=== PATIENT | male | born 1955 | race Caucasian/White ===

== ENCOUNTER 2016-03-13 08:42 | Outpatient (RCR) | payer MEDICARE, OTHER ==
--- OUTSIDE RECORDS SUMMARY | 2016-01-16 09:06 | XMS REPORT | Continuity of Care Document ---
Author Author [facility] Organization [facility] Address Unknown Phone Unavailable Care Team Providers Care Equipment Operat0R Name Role Phone Johana Nathan PCP [phone] Source Comments Some departments are not documenting in the electronic medical record. If you do not see the information that you expected, contact Release of Information in the Health Information Management department at [phone] for further assistance in locating additional records.[facility] Active Allergies and Adverse Reactions No Known Allergies Current Medications Prescription Sig. Disp. Refills Start End Date Status Date rivaroxaban (XARELTO) 20 Take 20 mg by mouth at Active mg tab tablet bedtime daily. oxyCODone (ROXICODONE) 5 Take 1-2 Tabs by mouth 90 Tab 0 05/06/19 Active mg tablet every 4 hours as needed 14 for Pain Earliest Fill Date: 05/05/13 tamsulosin (FLOMAX) 0.4 Take 1 Cap by mouth daily 30 Cap 5 05/06/19 Active mg capsule after breakfast. 14 polyethylene glycol 3350 Take 17 g by mouth daily. 3 Bottle 05/06/19 Active (GLYCOLAX; MIRALAX) 17 14 gram/dose powder senna/docusate Take 2 Tabs by mouth 05/06/19 Active (SENOKOT-S) 8.6/50 mg twice daily. 14 tablet Active Problems Problem Noted Date Urinary retention 05/03/2013 Overview: 05/01/13: Unable to void after removing calvo. Start Flomax. Consult Urology. Calvo replaced with plan to keep for 3-5 days and then repeat voiding trial. BPH (benign prostatic hyperplasia) 05/01/2013 Liver tumor 04/29/2013 S/P exploratory laparotomy 04/29/2013 Overview: 04/29/13: Exploratory laparotomy, intra-operative ultrasound, open cholecystectomy, right hepatectomy. Portal lymphadenectomy. Findings: The two lesions seen preoperatively were clearly felt. On ultrasound, I thought I could see small lesions within the right lobe so I thought it best to remove the entire lobe. Pulmonary embolus (HCC) 04/16/2013 Metastatic adenocarcinoma to liver (HCC) 02/26/2013 Overview: Mr. Zhao is a 58 year old man who developed left sided pain for several months and subsequently developed blood in his stools. A barium enema was done in [place], where he was working at the time and demonstrated an apple core lesion in the sigmoid colon. A CT of the abdomen and pelvis was done on 07/04/11 and metastatic lesions were noted.He underwent a laparoscopic sigmoidectomy on 07/12/11; the cancer was a well-differentiated to moderately differentiated adenocarcinoma, that went through the muscularis propria and into the pericolorectal tissues and was metastatic to 2 of 17 regional lymph nodes. There was no lymphatic nor perineural invasion. He had a colonoscopy after the resection in June, that showed that the proximal colon was free of other lesions. He had a PET scan on the August, that did not show any evidence of hypermetabolic lesions. He was given post-operative Folfox for one cycle, but due to his job, the treatment was changed to capecitabine and oxaliplatin for eleven cycles. He was felt to be free of cancer last spring. He did well until December,, when he developed left forearm swelling, pleuritic chest pain, and dyspnea. He went to the ER and was found to have bilateral pulmonary emboli on CTs done 12/27 and 12/28 as well as two liver lesions, consistent with metastatic colon cancer to the liver. One lesion was on the right lateral side of the gallbladder and the other on the right lateral lobe superficially. He was also noted by ultrasound to have left subclavian vein thrombosis. He has been started on Folfiri and has had three cycles. He was referred to me for consideration of surgical therapy. I saw him first on the February, and, on review of the CT scans he had done, felt that he had two lesions in the right lobe, which would be easily resected with a right lobectomy. I discussed with him the rationale for sandwich chemotherapy and the possible improved assisted survival with that treatment versus immediate surgery. I do feel that he would benefit from a PET scan done here, which we arranged to make certain there are no other lesions. Mr. Zhao returned on the 16 of April to be set up for surgery. He had a total of 6 cycles of chemotherapy with Folfiri and two with Avastin. His last chemotherapy treatment with Avastin was on 03/02/13; he then had 2 more cycles of Folfiiri, the last one was on the 31 of March. His appetite is good and he has gained about 7 kilograms since his last visit. On 04/29/13, he underwent an exploratory laparotomy, intra-operative ultrasound, open cholecystectomy, right hepatectomy, and portal lymphadenectomy. On ultrasound, I felt that there were subtle changes in his liver tissue, consistent with tiny metastatic lesions and so proceeded with a right hepatectomy. Pathologically, the liver contained two foci of metastatic adenocarcinoma compatible with colonic origin and negative portal lymph nodes () and the gallbladder showed mild chronic cholecystitis. He was discharged on the 7th post-operative day. The only post-operative issue was urinary retention for which he was started on Flowmax and the calvo was successfully removed on the day of discharge. L ast Assessment & Plan: He returned on the 14 of May. After discharge, he had a fair amount of pain but that resolved with time; he stopped taking oral pain medications 4 days ago. He has taste and is eating well, multiple small meals. He is sleeping poorly, due to the surgical drain which remains in place. The output from the drain has fallen to about one mL daily and the fluid has an odor. He is having a daily bowel movement. He had constipation for three days but, when he started taking Miralax, he started having bowel movements. Cancer of sigmoid colon (HCC) 07/11/2012 Overview: Mr. Zhao is a 58 year old man who developed left sided pain for several months and subsequently developed blood in his stools. A barium enema was done in [place], where he was working at the time, and demonstrated an apple core lesion in the sigmoid colon. He underwent a laparoscopic sigmoidectomy on 07/12/11; the cancer was a well-differentiated to moderately differentiated adenocarcinoma, that went through the muscularis propria and into the pericolorectal tissues and was metastatic to 2 of 17 regional lymph nodes. There was no lymphatic nor perineural invasion. He had a colonoscopy after the resection in June, that showed that the proximal colon was free of other lesions. He was given post-operative Folfox for one cycle, but due to his job, the treatment was changed to capecitabine and oxaliplatin for eleven cycles. He was felt to be free of cancer last spring. Social History Tobacco Use Types Packs/Day Years Used Date Never Smoker Smokeless Tobacco: Chew Current User Comments: chewed for 35 years Alcohol Use Drinks/Week oz/Week Comments No Last Filed Vital Signs Vital Sign Reading Time Taken Blood Pressure 115/79 05/14/2013 8:59 AM COFFIN MAKER Pulse 89 05/14/2013 8:59 AM COFFIN MAKER Temperature 36.9 C (98.4 F) 05/14/2013 8:59 AM COFFIN MAKER Respiratory Rate - - Height 1.791 m (5' 10.5") 05/14/2013 8:59 AM COFFIN MAKER Weight 91.717 kg (202 lb 3.2 oz) 05/14/2013 8:59 AM COFFIN MAKER Body Mass Index 28.59 05/14/2013 8:59 AM COFFIN MAKER Oxygen Saturation 100% 05/14/2013 8:59 AM COFFIN MAKER Plan of Care Health Maintenance Due Date Last Done Comments Physical (Comprehensive) 1962 Exam Pertussis Vaccine 1966 Tetanus Vaccine 02/21/1972 Colorectal Cancer 2005 Screening Shingles Vaccine 2015 Influenza Vaccine 11/09/2015 Results from Last 3 Months Not on file
[2016-01-16 09:45] LABS: BASOPHILS % (AUTO) 0 % (0-10); EOSINOPHILS # (AUTO) 0.2 10^3/uL (0.0-0.3); EOSINOPHILS % (AUTO) 4 % (0-10); LYMPHOCYTES # (AUTO) 1.1 X 10^3 (1.0-4.0); LYMPHOCYTES % (AUTO) 25 % (12-44); MEAN CORPUSCULAR HEMOGLOBIN 30 PG (25-34); MEAN CORPUSCULAR HGB CONC 34 G/DL (32-36); MEAN CORPUSCULAR VOLUME 89 FL (80-99); MEAN PLATELET VOLUME 10.8 FL (7.4-10.4); MONOCYTES # (AUTO) 0.4 X 10^3 (0.0-1.0); MONOCYTES % (AUTO) 9 % (0-12); NEUTROPHILS # (AUTO) 2.7 X 10^3 (1.8-7.8); NEUTROPHILS % (AUTO) 62 % (42-75); PLATELET COUNT 187 10^3/uL (130-400); RED BLOOD COUNT 4.62 10^6/uL (4.35-5.85); RED CELL DISTRIBUTION WIDTH 13.8 % (10.0-14.5); WHITE BLOOD COUNT 4.4 10^3/uL (4.3-11.0)
[2016-01-16 10:03] LABS: INR 2.1 (0.8-1.4); PROTHROMBIN TIME PATIENT 23.2 SEC (12.2-14.7)
[2016-01-16 10:14] LABS: ALANINE AMINOTRANSFERASE 20 U/L (0-55); ALBUMIN 4.4 G/DL (3.2-4.5); ANION GAP 10 MMOL/L (5-14); ASPARTATE AMINO TRANSFERASE 19 U/L (5-34); BILIRUBIN,TOTAL 0.6 MG/DL (0.1-1.0); BLOOD UREA NITROGEN 14 MG/DL (7-18); BUN/CREATININE RATIO 14; CALCIUM 8.9 MG/DL (8.5-10.1); CARBON DIOXIDE 24 MMOL/L (21-32); CHLORIDE 108 MMOL/L (98-107); CREATININE SERUM 0.99 MG/DL (0.60-1.30); GFR ESTIMATED > 60; GLUCOSE 111 MG/DL (70-105); POTASSIUM 4.1 MMOL/L (3.6-5.0); SODIUM 142 MMOL/L (135-145); TOTAL PROTEIN 6.9 G/DL (6.4-8.2)
[~2016-03-13 08:42] MED LIST: AC325T PO; ACHD5005 PO; CLN150C PO; DOCU-161 PO; ENXP60I.6 SC; HYDR-3454 PO; HYDR2TAB6 PO; LORA1TAB PO; NCT21TD TOP; PNT40TEC PO; POLY17PO23 PO; SENN-75 PO; TRM50T PO; WARF10TA44 PO; WARF7.5T49 PO; WHEA1TAB PO
[2016-03-13 08:57] LABS: BASOPHILS % (AUTO) 0 % (0-10); EOSINOPHILS # (AUTO) 0.2 10^3/uL (0.0-0.3); EOSINOPHILS % (AUTO) 4 % (0-10); LYMPHOCYTES % (AUTO) 24 % (12-44); MEAN CORPUSCULAR HEMOGLOBIN 30 PG (25-34); MEAN CORPUSCULAR HGB CONC 33 G/DL (32-36); MEAN CORPUSCULAR VOLUME 89 FL (80-99); MEAN PLATELET VOLUME 11.4 FL (7.4-10.4); MONOCYTES # (AUTO) 0.5 X 10^3 (0.0-1.0); MONOCYTES % (AUTO) 11 % (0-12); NEUTROPHILS # (AUTO) 2.5 X 10^3 (1.8-7.8); NEUTROPHILS % (AUTO) 61 % (42-75); PLATELET COUNT 203 10^3/uL (130-400); RED BLOOD COUNT 4.93 10^6/uL (4.35-5.85); WHITE BLOOD COUNT 4.1 10^3/uL (4.3-11.0)
[2016-03-13 09:29] LABS: INR 2.1 (0.8-1.4)
[2016-03-13 09:42] LABS: ALANINE AMINOTRANSFERASE 15 U/L (0-55); ALBUMIN 4.5 G/DL (3.2-4.5); ANION GAP 9 MMOL/L (5-14); ASPARTATE AMINO TRANSFERASE 21 U/L (5-34); BILIRUBIN,TOTAL 0.5 MG/DL (0.1-1.0); BLOOD UREA NITROGEN 13 MG/DL (7-18); BUN/CREATININE RATIO 12; CALCIUM 9.2 MG/DL (8.5-10.1); CARBON DIOXIDE 25 MMOL/L (21-32); CHLORIDE 106 MMOL/L (98-107); CREATININE SERUM 1.12 MG/DL (0.60-1.30); GFR ESTIMATED > 60; GLUCOSE 113 MG/DL (70-105); POTASSIUM 4.2 MMOL/L (3.6-5.0); SODIUM 140 MMOL/L (135-145); TOTAL PROTEIN 7.3 G/DL (6.4-8.2)
== END 2016-04-15 | disposition home or self-care (01) ==
LOC: ONC 08:42
PROVIDERS: ATTEND Internal Medicine Hematology & Oncology
DX: C18.7 Malignant neoplasm of sigmoid colon (principal); C78.7 Secondary malignant neoplasm of liver and intrahepatic bile duct; N40.0 Benign prostatic hyperplasia without lower urinary tract symptoms; F10.21 Alcohol dependence, in remission; Z86.711 Personal history of pulmonary embolism; Z86.718 Personal history of other venous thrombosis and embolism; Z79.01 Long term (current) use of anticoagulants; Z45.2 Encounter for adjustment and management of vascular access device
CPT/HCPCS: 36415; 80053; 82378; 85025; 85610; 99213

== ENCOUNTER 2016-06-18 16:26 | Outpatient (RCR) | payer MEDICARE, OTHER ==
--- OUTSIDE RECORDS SUMMARY | 2016-05-08 09:00 | XMS REPORT | Continuity of Care Document ---
Author Author [facility] Organization [facility] Address Unknown Phone Unavailable Care Team Providers Care Dance Therapist Name Role Phone Johana Nathan PCP [phone] Source Comments Some departments are not documenting in the electronic medical record. If you do not see the information that you expected, contact Release of Information in the Health Information Management department at [phone] for further assistance in locating additional records.[facility] Active Allergies and Adverse Reactions No Known [...] stools. A barium enema was done in [place], where he was working at the time [...] for sandwich chemotherapy and the possible improved shelter survival with that treatment versus immediate surgery. [...] stools. A barium enema was done in [place], where he was working at the time, [...] Taken Blood Pressure 115/79 05/14/2013 8:59 AM DEVELOPMENT LEAD Pulse 89 05/14/2013 8:59 AM DEVELOPMENT LEAD Temperature 36.9 C (98.4 F) 05/14/2013 8:59 AM DEVELOPMENT LEAD Respiratory Rate - - Height 1.791 m (5' 10.5") 05/14/2013 8:59 AM DEVELOPMENT LEAD Weight 91.717 kg (202 lb 3.2 oz) 05/14/2013 8:59 AM DEVELOPMENT LEAD Body Mass Index 28.59 05/14/2013 8:59 AM DEVELOPMENT LEAD Oxygen Saturation 100% 05/14/2013 8:59 AM DEVELOPMENT LEAD Plan of Care Health Maintenance Due Date Last Done Comments Physical (Comprehensive) 1962 Exam Pertussis Vaccine 1966 Tetanus Vaccine 02/21/1972 Colorectal Cancer 2005 Screening Shingles Vaccine 2015 Influenza Vaccine 11/09/2015 Results from Last 3 Months Not on file
[2016-05-08 09:04] LABS: BASOPHILS % (AUTO) 0 % (0-10); EOSINOPHILS # (AUTO) 0.2 10^3/uL (0.0-0.3); EOSINOPHILS % (AUTO) 5 % (0-10); LYMPHOCYTES # (AUTO) 1.1 X 10^3 (1.0-4.0); LYMPHOCYTES % (AUTO) 24 % (12-44); MEAN CORPUSCULAR HEMOGLOBIN 30 PG (25-34); MEAN CORPUSCULAR HGB CONC 34 G/DL (32-36); MEAN CORPUSCULAR VOLUME 89 FL (80-99); MEAN PLATELET VOLUME 11.2 FL (7.4-10.4); MONOCYTES # (AUTO) 0.5 X 10^3 (0.0-1.0); MONOCYTES % (AUTO) 12 % (0-12); NEUTROPHILS # (AUTO) 2.6 X 10^3 (1.8-7.8); NEUTROPHILS % (AUTO) 59 % (42-75); PLATELET COUNT 219 10^3/uL (130-400); RED BLOOD COUNT 4.76 10^6/uL (4.35-5.85); RED CELL DISTRIBUTION WIDTH 14.1 % (10.0-14.5); WHITE BLOOD COUNT 4.5 10^3/uL (4.3-11.0)
[2016-05-08 09:22] LABS: INR 2.8 (0.8-1.4); PROTHROMBIN TIME PATIENT 29.3 SEC (12.2-14.7)
[2016-05-08 09:29] LABS: ALANINE AMINOTRANSFERASE 15 U/L (0-55); ALBUMIN 4.4 G/DL (3.2-4.5); ANION GAP 10 MMOL/L (5-14); ASPARTATE AMINO TRANSFERASE 20 U/L (5-34); BILIRUBIN,TOTAL 0.6 MG/DL (0.1-1.0); BLOOD UREA NITROGEN 20 MG/DL (7-18); BUN/CREATININE RATIO 19; CALCIUM 9.1 MG/DL (8.5-10.1); CARBON DIOXIDE 24 MMOL/L (21-32); CHLORIDE 106 MMOL/L (98-107); CREATININE SERUM 1.05 MG/DL (0.60-1.30); GFR ESTIMATED > 60; GLUCOSE 110 MG/DL (70-105); MAGNESIUM 2.4 MG/DL (1.8-2.4); POTASSIUM 4.2 MMOL/L (3.6-5.0); SODIUM 140 MMOL/L (135-145)
[2016-06-18 09:44] LABS: BASOPHILS % (AUTO) 0 % (0-10); EOSINOPHILS # (AUTO) 0.3 10^3/uL (0.0-0.3); EOSINOPHILS % (AUTO) 5 % (0-10); LYMPHOCYTES # (AUTO) 1.2 X 10^3 (1.0-4.0); LYMPHOCYTES % (AUTO) 22 % (12-44); MEAN CORPUSCULAR HEMOGLOBIN 29 PG (25-34); MEAN CORPUSCULAR HGB CONC 33 G/DL (32-36); MEAN CORPUSCULAR VOLUME 89 FL (80-99); MEAN PLATELET VOLUME 11.1 FL (7.4-10.4); MONOCYTES # (AUTO) 0.5 X 10^3 (0.0-1.0); MONOCYTES % (AUTO) 9 % (0-12); NEUTROPHILS # (AUTO) 3.4 X 10^3 (1.8-7.8); NEUTROPHILS % (AUTO) 63 % (42-75); PLATELET COUNT 203 10^3/uL (130-400); RED BLOOD COUNT 4.85 10^6/uL (4.35-5.85); WHITE BLOOD COUNT 5.4 10^3/uL (4.3-11.0)
[2016-06-18 10:38] LABS: PROTHROMBIN TIME PATIENT 22.6 SEC (12.2-14.7)
[2016-06-18 10:53] LABS: ALANINE AMINOTRANSFERASE 17 U/L (0-55); ALBUMIN 4.4 G/DL (3.2-4.5); ANION GAP 9 MMOL/L (5-14); ASPARTATE AMINO TRANSFERASE 23 U/L (5-34); BILIRUBIN,TOTAL 0.5 MG/DL (0.1-1.0); BLOOD UREA NITROGEN 19 MG/DL (7-18); BUN/CREATININE RATIO 22; CALCIUM 9.1 MG/DL (8.5-10.1); CARBON DIOXIDE 24 MMOL/L (21-32); CHLORIDE 108 MMOL/L (98-107); CREATININE SERUM 0.88 MG/DL (0.60-1.30); GFR ESTIMATED > 60; GLUCOSE 107 MG/DL (70-105); POTASSIUM 4.1 MMOL/L (3.6-5.0); SODIUM 141 MMOL/L (135-145); TOTAL PROTEIN 7.1 G/DL (6.4-8.2)
== END 2016-08-06 | disposition home or self-care (01) ==
LOC: ONC 16:26
PROVIDERS: ATTEND Internal Medicine Hematology & Oncology
DX: C18.7 Malignant neoplasm of sigmoid colon (principal); C78.7 Secondary malignant neoplasm of liver and intrahepatic bile duct; N40.0 Benign prostatic hyperplasia without lower urinary tract symptoms; F10.21 Alcohol dependence, in remission; Z86.711 Personal history of pulmonary embolism; Z86.718 Personal history of other venous thrombosis and embolism; Z79.01 Long term (current) use of anticoagulants
CPT/HCPCS: 36415; 80053; 82378; 83735; 84153; 85025; 85610; 99213

== ENCOUNTER → 2016-08-01 | Outpatient (CLI) | payer MEDICARE, OTHER ==
[2016-08-01] MEDS: NS 100 ML (IVPB) BAG IV ONE (09:37)
[2016-08-01] MEDS: BARIUM SUSPENSION 2.1% (VANILLA SILQ) 450 ML PO ONE (09:37)
[2016-08-01] MEDS: IOHEXOL 350 MG/ML 100 ML (OMNIPAQUE 350) VIAL IV ONE (09:37)
[2016-08-01] MEDS: CATHETER FLUSH 10 ML SYR IV PRN (09:37)
--- NOTE | 2016-08-02 13:14 | Diagnostic Imaging Report ---
PROCEDURE: CT abdomen and pelvis with and without contrast. TECHNIQUE: Pre and post intravenous contrast axial imaging of the abdomen and post IV contrast-enhanced pelvis were performed. INDICATION: Colon cancer. COMPARISON: 01/16/2016. FINDINGS: Postoperative changes to the right hepatic lobe stable. The residual liver parenchyma revealed no findings of residual or recurrent mass. There is no biliary ductal dilatation. The gallbladder is surgically absent. The spleen negative. There is no adrenal mass. Unobstructed kidneys were normal and there is no abdominopelvic, mesenteric or retroperitoneal lymphadenopathy. There is no ascites, abscess, hematoma or fluid collection. Urinary bladder unremarkable. The osseous structures unremarkable. The lung bases unremarkable. IMPRESSION: Stable postoperative change to the right hepatic lobe, no acute or suspicious finding at CT abdomen or pelvis. Dictated by: Dictated on workstation # [id number]
== END ==
LOC: RAD 08:51
PROVIDERS: ATTEND Internal Medicine Hematology & Oncology
DX: C18.9 Malignant neoplasm of colon, unspecified (principal); C78.7 Secondary malignant neoplasm of liver and intrahepatic bile duct
CPT/HCPCS: 71260; 74178

== ENCOUNTER 2016-08-15 08:35 | Outpatient (RCR) | payer MEDICARE, OTHER ==
[~2016-08-15 08:35] MED LIST changes: -CATHETER FLUSH 10 ML SYR IV PRN; -IOHEXOL 350 MG/ML 100 ML (OMNIPAQUE 350) VIAL IV ONE; -NS 100 ML (IVPB) BAG IV ONE
[2016-08-15 09:09] LABS: BASOPHILS % (AUTO) 0 % (0-10); EOSINOPHILS # (AUTO) 0.3 10^3/uL (0.0-0.3); EOSINOPHILS % (AUTO) 6 % (0-10); LYMPHOCYTES % (AUTO) 21 % (12-44); MEAN CORPUSCULAR HEMOGLOBIN 30 PG (25-34); MEAN CORPUSCULAR HGB CONC 34 G/DL (32-36); MEAN CORPUSCULAR VOLUME 88 FL (80-99); MEAN PLATELET VOLUME 11.3 FL (7.4-10.4); MONOCYTES # (AUTO) 0.5 X 10^3 (0.0-1.0); MONOCYTES % (AUTO) 10 % (0-12); NEUTROPHILS # (AUTO) 3.2 X 10^3 (1.8-7.8); NEUTROPHILS % (AUTO) 64 % (42-75); PLATELET COUNT 210 10^3/uL (130-400); RED BLOOD COUNT 5.03 10^6/uL (4.35-5.85); RED CELL DISTRIBUTION WIDTH 13.9 % (10.0-14.5); WHITE BLOOD COUNT 4.9 10^3/uL (4.3-11.0)
[2016-08-15 09:32] LABS: INR 2.5 (0.8-1.4); PROTHROMBIN TIME PATIENT 26.4 SEC (12.2-14.7)
[2016-08-15 09:43] LABS: ALANINE AMINOTRANSFERASE 16 U/L (0-55); ALBUMIN 4.3 G/DL (3.2-4.5); ANION GAP 7 MMOL/L (5-14); ASPARTATE AMINO TRANSFERASE 21 U/L (5-34); BILIRUBIN,TOTAL 0.9 MG/DL (0.1-1.0); BLOOD UREA NITROGEN 16 MG/DL (7-18); BUN/CREATININE RATIO 17; CALCIUM 9.2 MG/DL (8.5-10.1); CARBON DIOXIDE 28 MMOL/L (21-32); CHLORIDE 105 MMOL/L (98-107); CREATININE SERUM 0.93 MG/DL (0.60-1.30); GFR ESTIMATED > 60; GLUCOSE 108 MG/DL (70-105); SODIUM 140 MMOL/L (135-145); TOTAL PROTEIN 7.2 G/DL (6.4-8.2)
== END 2016-11-13 | disposition home or self-care (01) ==
LOC: ONC 08:35
PROVIDERS: ATTEND Internal Medicine Hematology & Oncology
DX: C18.7 Malignant neoplasm of sigmoid colon (principal); C78.7 Secondary malignant neoplasm of liver and intrahepatic bile duct; N40.0 Benign prostatic hyperplasia without lower urinary tract symptoms; F10.21 Alcohol dependence, in remission; Z86.711 Personal history of pulmonary embolism; Z86.718 Personal history of other venous thrombosis and embolism; Z79.01 Long term (current) use of anticoagulants
CPT/HCPCS: 36415; 80053; 82378; 85025; 85610; 99213

== ENCOUNTER → 2016-08-15 | Outpatient (CLI) | payer MEDICARE, OTHER ==
[~2016-08-15] MED LIST changes: +CATHETER FLUSH 10 ML SYR IV PRN; +IOHEXOL 350 MG/ML 100 ML (OMNIPAQUE 350) VIAL IV ONE; +NS 100 ML (IVPB) BAG IV ONE
--- NOTE | 2016-08-15 09:35 | Diagnostic Imaging Report ---
PROCEDURE: CT chest with contrast only. TECHNIQUE: Multiple contiguous axial images were obtained through the chest after administration of intravenous contrast. INDICATION: Colon cancer. COMPARISON: CT chest from 01/16/16 is reviewed. FINDINGS: There is a borderline sized right hilar lymph node measuring 1 cm, minimally more prominent when compared to the prior exam. This is a nonspecific finding. No mediastinal or left hilar lymphadenopathy. No significantly enlarged lymph nodes are seen in the axillae. The thoracic aorta is normal in caliber. The heart size is normal. No pericardial or pleural effusion. The lungs demonstrate no significant consolidation, mass or suspicious nodule. There is minimal atelectasis seen in the right lung base. Sections in the upper abdomen demonstrate evidence of prior right hepatectomy with hypertrophy of the left hepatic lobe. The osseous structures demonstrate bridging syndesmophytes in the mid and lower thoracic spine. IMPRESSION: Nonspecific borderline-sized right hilar lymph node is slightly more prominent compared to the previous exam. Followup studies are recommended. No definite evidence of metastasis. Dictated by: Dictated on workstation # [id number]
== END ==
LOC: RAD 07:53
PROVIDERS: ATTEND Internal Medicine Hematology & Oncology
DX: C18.9 Malignant neoplasm of colon, unspecified (principal); C78.7 Secondary malignant neoplasm of liver and intrahepatic bile duct
CPT/HCPCS: 71260

== ENCOUNTER 2016-12-10 08:53 | Outpatient (RCR) | payer MEDICARE, OTHER ==
[2016-12-10 09:28] LABS: BASOPHILS % (AUTO) 0 % (0-10); EOSINOPHILS # (AUTO) 0.2 10^3/uL (0.0-0.3); EOSINOPHILS % (AUTO) 4 % (0-10); HEMATOCRIT 44 % (40-54); HEMOGLOBIN 14.7 G/DL (13.3-17.7); LYMPHOCYTES # (AUTO) 1.1 X 10^3 (1.0-4.0); LYMPHOCYTES % (AUTO) 18 % (12-44); MEAN CORPUSCULAR HEMOGLOBIN 30 PG (25-34); MEAN CORPUSCULAR HGB CONC 33 G/DL (32-36); MEAN CORPUSCULAR VOLUME 91 FL (80-99); MEAN PLATELET VOLUME 11.9 FL (7.4-10.4); MONOCYTES # (AUTO) 0.6 X 10^3 (0.0-1.0); MONOCYTES % (AUTO) 10 % (0-12); NEUTROPHILS % (AUTO) 69 % (42-75); PLATELET COUNT 192 10^3/uL (130-400); RED BLOOD COUNT 4.86 10^6/uL (4.35-5.85); RED CELL DISTRIBUTION WIDTH 13.5 % (10.0-14.5); WHITE BLOOD COUNT 5.8 10^3/uL (4.3-11.0)
[2016-12-10 09:46] LABS: ALANINE AMINOTRANSFERASE 21 U/L (0-55); ALBUMIN 4.3 GM/DL (3.2-4.5); ALKALINE PHOSPHATASE 55 U/L (40-136); BUN/CREATININE RATIO 13; CALCIUM 9.5 MG/DL (8.5-10.1); CARBON DIOXIDE 29 MMOL/L (21-32); CHLORIDE 106 MMOL/L (98-107); GFR ESTIMATED > 60; GLUCOSE 113 MG/DL (70-105); POTASSIUM 4.1 MMOL/L (3.6-5.0); SODIUM 143 MMOL/L (135-145); TOTAL PROTEIN 7.4 GM/DL (6.4-8.2)
[2017-03-06 09:27] LABS: BASOPHILS % (AUTO) 0 % (0-10); EOSINOPHILS # (AUTO) 0.2 10^3/uL (0.0-0.3); EOSINOPHILS % (AUTO) 5 % (0-10); HEMATOCRIT 44 % (40-54); HEMOGLOBIN 14.8 G/DL (13.3-17.7); LYMPHOCYTES % (AUTO) 20 % (12-44); MEAN CORPUSCULAR HEMOGLOBIN 30 PG (25-34); MEAN CORPUSCULAR HGB CONC 34 G/DL (32-36); MEAN CORPUSCULAR VOLUME 90 FL (80-99); MEAN PLATELET VOLUME 11.3 FL (7.4-10.4); MONOCYTES # (AUTO) 0.4 X 10^3 (0.0-1.0); MONOCYTES % (AUTO) 7 % (0-12); NEUTROPHILS # (AUTO) 3.5 X 10^3 (1.8-7.8); NEUTROPHILS % (AUTO) 68 % (42-75); PLATELET COUNT 198 10^3/uL (130-400); RED BLOOD COUNT 4.89 10^6/uL (4.35-5.85); RED CELL DISTRIBUTION WIDTH 13.5 % (10.0-14.5); WHITE BLOOD COUNT 5.1 10^3/uL (4.3-11.0)
[2017-03-06 09:43] LABS: ALANINE AMINOTRANSFERASE 14 U/L (0-55); ALBUMIN 4.5 GM/DL (3.2-4.5); ALKALINE PHOSPHATASE 59 U/L (40-136); BILIRUBIN,TOTAL 0.8 MG/DL (0.1-1.0); BUN/CREATININE RATIO 11; CALCIUM 9.7 MG/DL (8.5-10.1); CARBON DIOXIDE 29 MMOL/L (21-32); CHLORIDE 104 MMOL/L (98-107); CREATININE SERUM 0.97 MG/DL (0.60-1.30); GFR ESTIMATED > 60; GLUCOSE 109 MG/DL (70-105); POTASSIUM 4.7 MMOL/L (3.6-5.0); SODIUM 142 MMOL/L (135-145); TOTAL PROTEIN 7.2 GM/DL (6.4-8.2)
== END 2017-03-10 | disposition home or self-care (01) ==
LOC: ONC 08:53
PROVIDERS: ATTEND Internal Medicine Hematology & Oncology
DX: C78.7 Secondary malignant neoplasm of liver and intrahepatic bile duct (principal); Z85.038 Personal history of other malignant neoplasm of large intestine; N40.0 Benign prostatic hyperplasia without lower urinary tract symptoms; M19.91 Primary osteoarthritis, unspecified site; M51.26 Other intervertebral disc displacement, lumbar region; F10.21 Alcohol dependence, in remission; Z86.711 Personal history of pulmonary embolism; Z86.718 Personal history of other venous thrombosis and embolism; Z79.01 Long term (current) use of anticoagulants; Z79.899 Other long term (current) drug therapy
CPT/HCPCS: 36415; 80053; 82378; 85025; 99213

== ENCOUNTER → 2017-03-06 | Outpatient (CLI) | payer MEDICARE ==
[~2017-03-06] MED LIST changes: +IOHEXOL 350 MG/ML 100 ML (OMNIPAQUE 350) VIAL IV ONE; +NS 100 ML (IVPB) BAG IV ONE; +NS 50 ML (IVPB) BAG IV ONE
--- NOTE | 2017-03-06 13:35 | Diagnostic Imaging Report ---
PROCEDURE: CT chest and abdomen with contrast. TECHNIQUE: Multiple contiguous axial images were obtained through the chest and abdomen after the administration of intravenous contrast. INDICATION: Metastatic colon cancer, status post partial hepatectomy. 100 mL of Omnipaque 350 is administered intravenously. COMPARISON: CT chest of 08/15/[address] abdomen and pelvis from 08/01/2016. FINDINGS: CT CHEST: The lungs demonstrate no significant consolidation, mass, or suspicious nodule. There is no pleural or pericardial effusion. The heart size is normal. The caliber of the ascending aorta is at the upper limits of normal, around 3.5 cm. There is no mediastinal mass. No mediastinal lymphadenopathy. Minimally prominent 1 cm right hilar lymph node is stable from prior exams, of uncertain significance. No axillary lymphadenopathy is seen. The osseous structures demonstrate mild degenerative changes in the thoracic spine. CT ABDOMEN: Changes of prior right hepatectomy are seen. There is hypertrophy of the left hepatic lobe with lobulation of its contour without a discrete mass. The spleen, the pancreas, and the adrenal glands appear unremarkable. The kidneys have symmetric enhancement and contrast excretion. There is no hydronephrosis. The abdominal aorta is normal in caliber. No para-aortic significantly enlarged lymph node. There is diastasis of the recti and abdominal wall weakness along the umbilicus with a superimposed tiny fat-containing hernia. The visualized portion of the bowel loops within the abdomen appears grossly unremarkable. Please note that this study does not include a CT of the pelvis. The osseous structures appear grossly unremarkable. IMPRESSION: CT CHEST: Stable borderline-sized right hilar lymph node of questionable significance. No evidence of metastasis. CT ABDOMEN: Status post partial hepatectomy with hypertrophy of the left hepatic lobe. No evidence of metastasis in the abdomen. Dictated by: Dictated on workstation # [id number]
== END ==
LOC: RAD 09:06
PROVIDERS: ATTEND Internal Medicine Hematology & Oncology
DX: C18.7 Malignant neoplasm of sigmoid colon (principal); C78.7 Secondary malignant neoplasm of liver and intrahepatic bile duct; Z90.49 Acquired absence of other specified parts of digestive tract
CPT/HCPCS: 71260; 74160

== ENCOUNTER 2017-06-11 08:50 | Outpatient (RCR) | payer MEDICARE, OTHER ==
[2017-03-19 08:45] LABS: BASOPHILS % (AUTO) 1 % (0-10); EOSINOPHILS # (AUTO) 0.3 10^3/uL (0.0-0.3); EOSINOPHILS % (AUTO) 7 % (0-10); HEMATOCRIT 42 % (40-54); HEMOGLOBIN 14.3 G/DL (13.3-17.7); LYMPHOCYTES % (AUTO) 27 % (12-44); MEAN CORPUSCULAR HEMOGLOBIN 31 PG (25-34); MEAN CORPUSCULAR HGB CONC 34 G/DL (32-36); MEAN CORPUSCULAR VOLUME 90 FL (80-99); MEAN PLATELET VOLUME 11.6 FL (7.4-10.4); MONOCYTES # (AUTO) 0.4 X 10^3 (0.0-1.0); MONOCYTES % (AUTO) 12 % (0-12); NEUTROPHILS # (AUTO) 2.1 X 10^3 (1.8-7.8); NEUTROPHILS % (AUTO) 55 % (42-75); PLATELET COUNT 162 10^3/uL (130-400); RED BLOOD COUNT 4.66 10^6/uL (4.35-5.85); RED CELL DISTRIBUTION WIDTH 13.4 % (10.0-14.5); WHITE BLOOD COUNT 3.8 10^3/uL (4.3-11.0)
[2017-03-19 09:04] LABS: ALANINE AMINOTRANSFERASE 16 U/L (0-55); ALBUMIN 4.2 GM/DL (3.2-4.5); ALKALINE PHOSPHATASE 60 U/L (40-136); BILIRUBIN,TOTAL 0.7 MG/DL (0.1-1.0); BUN/CREATININE RATIO 13; CALCIUM 9.4 MG/DL (8.5-10.1); CARBON DIOXIDE 27 MMOL/L (21-32); CHLORIDE 103 MMOL/L (98-107); CREATININE SERUM 0.95 MG/DL (0.60-1.30); GFR ESTIMATED > 60; GLUCOSE 109 MG/DL (70-105); POTASSIUM 4.1 MMOL/L (3.6-5.0); SODIUM 142 MMOL/L (135-145); TOTAL PROTEIN 7.3 GM/DL (6.4-8.2)
[~2017-06-11 08:50] MED LIST changes: -IOHEXOL 350 MG/ML 100 ML (OMNIPAQUE 350) VIAL IV ONE; -NS 100 ML (IVPB) BAG IV ONE; -NS 50 ML (IVPB) BAG IV ONE
[2017-06-11 09:08] LABS: BASOPHILS % (AUTO) 0 % (0-10); EOSINOPHILS # (AUTO) 0.2 10^3/uL (0.0-0.3); EOSINOPHILS % (AUTO) 4 % (0-10); HEMATOCRIT 45 % (40-54); LYMPHOCYTES # (AUTO) 0.9 X 10^3 (1.0-4.0); LYMPHOCYTES % (AUTO) 19 % (12-44); MEAN CORPUSCULAR HEMOGLOBIN 30 PG (25-34); MEAN CORPUSCULAR HGB CONC 34 G/DL (32-36); MEAN CORPUSCULAR VOLUME 90 FL (80-99); MEAN PLATELET VOLUME 11.3 FL (7.4-10.4); MONOCYTES # (AUTO) 0.5 X 10^3 (0.0-1.0); MONOCYTES % (AUTO) 9 % (0-12); NEUTROPHILS # (AUTO) 3.3 X 10^3 (1.8-7.8); NEUTROPHILS % (AUTO) 67 % (42-75); PLATELET COUNT 205 10^3/uL (130-400); RED BLOOD COUNT 4.97 10^6/uL (4.35-5.85); RED CELL DISTRIBUTION WIDTH 13.7 % (10.0-14.5); WHITE BLOOD COUNT 4.8 10^3/uL (4.3-11.0)
[2017-06-11 09:27] LABS: INR 2.7 (0.8-1.4); PROTHROMBIN TIME PATIENT 28.8 SEC (12.2-14.7)
[2017-06-11 09:30] LABS: ALANINE AMINOTRANSFERASE 19 U/L (0-55); ALBUMIN 4.6 GM/DL (3.2-4.5); ALKALINE PHOSPHATASE 54 U/L (40-136); BILIRUBIN,TOTAL 0.8 MG/DL (0.1-1.0); BUN/CREATININE RATIO 14; CALCIUM 9.5 MG/DL (8.5-10.1); CARBON DIOXIDE 31 MMOL/L (21-32); CHLORIDE 106 MMOL/L (98-107); GFR ESTIMATED > 60; GLUCOSE 117 MG/DL (70-105); MAGNESIUM 2.3 MG/DL (1.8-2.4); POTASSIUM 4.2 MMOL/L (3.6-5.0); SODIUM 142 MMOL/L (135-145); TOTAL PROTEIN 7.4 GM/DL (6.4-8.2)
== END 2017-06-17 | disposition home or self-care (01) ==
LOC: ONC 08:50
PROVIDERS: ATTEND Internal Medicine Hematology & Oncology
DX: C78.7 Secondary malignant neoplasm of liver and intrahepatic bile duct (principal); Z85.038 Personal history of other malignant neoplasm of large intestine; N40.0 Benign prostatic hyperplasia without lower urinary tract symptoms; M19.91 Primary osteoarthritis, unspecified site; M51.26 Other intervertebral disc displacement, lumbar region; F10.21 Alcohol dependence, in remission; Z86.711 Personal history of pulmonary embolism; Z86.718 Personal history of other venous thrombosis and embolism; Z79.01 Long term (current) use of anticoagulants; Z79.899 Other long term (current) drug therapy
CPT/HCPCS: 36415; 80053; 82378; 83735; 85025; 85610; 99213

== ENCOUNTER → 2017-09-11 | Outpatient (CLI) | payer MEDICARE ==
[~2017-09-11] MED LIST changes: +BARIUM SUSPENSION 2.1% (VANILLA SILQ) 450 ML PO ONE; +IOHEXOL 350 MG/ML 100 ML (OMNIPAQUE 350) VIAL IV ONE; +NS 250 ML (IVPB) BAG IV ONE
--- NOTE | 2017-09-11 10:28 | Diagnostic Imaging Report ---
PROCEDURE: CT chest with contrast, CT abdomen and pelvis with and without contrast. TECHNIQUE: Pre and post intravenous contrast axial imaging of the abdomen and pelvis and post contrast axial imaging of the chest were performed. INDICATION: Sigmoid colon cancer. Comparison is made with prior CT from 03/06/2017. CT chest: No axillary lymphadenopathy is identified. No definite hilar or mediastinal lymphadenopathy is identified. There are coronary arterial calcifications present. No pericardial or pleural fluid is detected. No pulmonary infiltrates, nodules or masses are seen. IMPRESSION: Stable CT of the chest since 03/06/2017. No thoracic lymphadenopathy or evidence of pulmonary metastatic disease is identified. CT abdomen and pelvis: Postsurgical changes of right hepatectomy are again noted. No discrete liver mass is identified. The pancreas and spleen are unremarkable. No adrenal mass is detected. The kidneys are unremarkable. Aorta is nonaneurysmal. No central retroperitoneal or mesenteric lymphadenopathy is seen. Small and large bowel loops are normal caliber. There is no ascites. Postsurgical changes in the sigmoid are noted. Bladder and prostate are unremarkable. No pelvic lymphadenopathy is seen. IMPRESSION: Stable CT of the abdomen and pelvis since 03/06/2017. There is no evidence of abdominal or pelvic metastatic disease. Dictated by: Dictated on workstation # [id number]
== END ==
LOC: RAD 09:03
PROVIDERS: ATTEND Internal Medicine Hematology & Oncology
DX: C18.7 Malignant neoplasm of sigmoid colon (principal)
CPT/HCPCS: 71260; 74178

== ENCOUNTER 2017-09-17 09:16 | Outpatient (RCR) | payer MEDICARE, OTHER ==
[2017-09-11 09:30] LABS: BASOPHILS % (AUTO) 0 % (0-10); EOSINOPHILS # (AUTO) 0.2 10^3/uL (0.0-0.3); EOSINOPHILS % (AUTO) 4 % (0-10); HEMATOCRIT 42 % (40-54); HEMOGLOBIN 14.1 G/DL (13.3-17.7); LYMPHOCYTES # (AUTO) 1.1 X 10^3 (1.0-4.0); LYMPHOCYTES % (AUTO) 19 % (12-44); MEAN CORPUSCULAR HEMOGLOBIN 30 PG (25-34); MEAN CORPUSCULAR HGB CONC 34 G/DL (32-36); MEAN CORPUSCULAR VOLUME 89 FL (80-99); MEAN PLATELET VOLUME 11.4 FL (7.4-10.4); MONOCYTES # (AUTO) 0.6 X 10^3 (0.0-1.0); MONOCYTES % (AUTO) 10 % (0-12); NEUTROPHILS # (AUTO) 3.7 X 10^3 (1.8-7.8); NEUTROPHILS % (AUTO) 67 % (42-75); PLATELET COUNT 197 10^3/uL (130-400); RED BLOOD COUNT 4.68 10^6/uL (4.35-5.85); RED CELL DISTRIBUTION WIDTH 13.6 % (10.0-14.5); WHITE BLOOD COUNT 5.6 10^3/uL (4.3-11.0)
[2017-09-11 09:40] LABS: INR 3.7 (0.8-1.4); PROTHROMBIN TIME PATIENT 36.6 SEC (12.2-14.7)
[2017-09-11 09:51] LABS: ALANINE AMINOTRANSFERASE 15 U/L (0-55); ALBUMIN 4.4 GM/DL (3.2-4.5); ALKALINE PHOSPHATASE 55 U/L (40-136); BILIRUBIN,TOTAL 0.7 MG/DL (0.1-1.0); BUN/CREATININE RATIO 13; CALCIUM 9.7 MG/DL (8.5-10.1); CARBON DIOXIDE 27 MMOL/L (21-32); CHLORIDE 106 MMOL/L (98-107); CREATININE SERUM 1.03 MG/DL (0.60-1.30); GFR ESTIMATED > 60; GLUCOSE 111 MG/DL (70-105); MAGNESIUM 2.4 MG/DL (1.8-2.4); POTASSIUM 4.3 MMOL/L (3.6-5.0); SODIUM 140 MMOL/L (135-145)
[~2017-09-17 09:16] MED LIST changes: -BARIUM SUSPENSION 2.1% (VANILLA SILQ) 450 ML PO ONE; -IOHEXOL 350 MG/ML 100 ML (OMNIPAQUE 350) VIAL IV ONE; -NS 250 ML (IVPB) BAG IV ONE
== END 2017-10-07 | disposition home or self-care (01) ==
LOC: ONC 09:16
PROVIDERS: ATTEND Internal Medicine Hematology & Oncology
DX: C78.7 Secondary malignant neoplasm of liver and intrahepatic bile duct (principal); Z85.038 Personal history of other malignant neoplasm of large intestine; N40.0 Benign prostatic hyperplasia without lower urinary tract symptoms; M19.91 Primary osteoarthritis, unspecified site; M51.26 Other intervertebral disc displacement, lumbar region; F10.21 Alcohol dependence, in remission; Z86.711 Personal history of pulmonary embolism; Z86.718 Personal history of other venous thrombosis and embolism; Z79.01 Long term (current) use of anticoagulants; Z79.899 Other long term (current) drug therapy
CPT/HCPCS: 36415; 80053; 82378; 83735; 85025; 85610; 99213

== ENCOUNTER 2018-03-18 08:04 | Outpatient (RCR) | payer MEDICARE, OTHER ==
[~2018-03-18 08:04] MED LIST changes: -HYDR-3454 PO; +HYDR-3455 PO
[2018-03-18 08:31] LABS: BASOPHILS % (AUTO) 0 % (0-10); EOSINOPHILS # (AUTO) 0.2 10^3/uL (0.0-0.3); EOSINOPHILS % (AUTO) 4 % (0-10); HEMATOCRIT 46 % (40-54); HEMOGLOBIN 15.1 G/DL (13.3-17.7); LYMPHOCYTES % (AUTO) 21 % (12-44); MEAN CORPUSCULAR HEMOGLOBIN 29 PG (25-34); MEAN CORPUSCULAR HGB CONC 33 G/DL (32-36); MEAN CORPUSCULAR VOLUME 89 FL (80-99); MEAN PLATELET VOLUME 11.5 FL (7.4-10.4); MONOCYTES # (AUTO) 0.4 X 10^3 (0.0-1.0); MONOCYTES % (AUTO) 8 % (0-12); NEUTROPHILS # (AUTO) 3.1 X 10^3 (1.8-7.8); NEUTROPHILS % (AUTO) 67 % (42-75); PLATELET COUNT 204 10^3/uL (130-400); RED CELL DISTRIBUTION WIDTH 13.9 % (10.0-14.5); WHITE BLOOD COUNT 4.6 10^3/uL (4.3-11.0)
[2018-03-18 08:43] LABS: INR 2.2 (0.8-1.4); PROTHROMBIN TIME PATIENT 24.5 SEC (12.2-14.7)
[2018-03-18 08:52] LABS: ALANINE AMINOTRANSFERASE 14 U/L (0-55); ALBUMIN 4.7 GM/DL (3.2-4.5); ALKALINE PHOSPHATASE 56 U/L (40-136); BUN/CREATININE RATIO 15; CALCIUM 9.9 MG/DL (8.5-10.1); CARBON DIOXIDE 27 MMOL/L (21-32); CHLORIDE 104 MMOL/L (98-107); GFR ESTIMATED > 60; GLUCOSE 107 MG/DL (70-105); POTASSIUM 4.2 MMOL/L (3.6-5.0); SODIUM 140 MMOL/L (135-145); TOTAL PROTEIN 7.7 GM/DL (6.4-8.2)
[2018-04-17] MEDS ORDERED: NS IV 500 ML (CANCER CENTER) 500 ML ONE (13:30)
== END 2018-06-16 | disposition home or self-care (01) ==
LOC: ONC 08:04
PROVIDERS: ATTEND Internal Medicine Hematology & Oncology
DX: C78.7 Secondary malignant neoplasm of liver and intrahepatic bile duct (principal); Z85.038 Personal history of other malignant neoplasm of large intestine; N40.0 Benign prostatic hyperplasia without lower urinary tract symptoms; F10.21 Alcohol dependence, in remission; Z86.711 Personal history of pulmonary embolism; Z86.718 Personal history of other venous thrombosis and embolism; Z79.01 Long term (current) use of anticoagulants; Z79.899 Other long term (current) drug therapy
CPT/HCPCS: 36415; 80053; 82378; 85025; 85610; 99213

== ENCOUNTER → 2018-09-09 | Outpatient (CLI) | payer MEDICARE ==
[~2018-09-09] MED LIST changes: +BARIUM SUSPENSION 2.1% (VANILLA SILQ) 450 ML PO ONE; +HOLD METFORMIN - RECEIVED CONTRAST 20 ML VIAL IV SCH; +IOHEXOL 350 MG/ML 100 ML (OMNIPAQUE 350) VIAL IV ONE; +NS 100 ML (IVPB) BAG IV ONE
--- NOTE | 2018-09-09 10:43 | Diagnostic Imaging Report ---
PROCEDURE: CT chest with contrast, CT abdomen and pelvis with and without contrast. TECHNIQUE: Pre and post intravenous contrast axial imaging of the abdomen and pelvis and post contrast axial imaging of the chest were performed. Auto Exposure Controls were utilized during the CT exam to meet ALARA standards for radiation dose reduction. DATE: September 09, 2018. COMPARISON: September 11, 2017. INDICATION: 63-year-old male, history of colon cancer and pulmonary embolism. Low back pain. FINDINGS: There is no identified pulmonary nodule or lung mass. There is minimal dependent atelectasis. There is no additional focal airspace consolidation. There is no pneumothorax. There is no pleural effusion. The central airways are patent. There are coronary artery calcifications. There are additional areas of atherosclerotic disease. The heart is not enlarged. There is no pericardial effusion. There is no identified central or proximal segmental pulmonary embolus. There is nondiagnostic assessment for subsegmental pulmonary emboli given the timing of the contrast bolus. There is no identified abnormally enlarged mediastinal, hilar, or axillary lymph node which meets CT size criteria for adenopathy. The patient is status post partial right hepatectomy. There is no identified liver lesion. The main and left portal veins are patent. The gallbladder is surgically absent. There is no biliary ductal dilation. The main pancreatic duct is not abnormally dilated. The pancreatic parenchyma is unremarkable. The spleen is normal in size. The adrenal glands are unremarkable. Unremarkable appearance of the renal parenchyma. The urinary collecting systems are not distended. There is no identified renal or ureteral stone. There is mild diffuse urinary bladder wall thickening which may potentially reflect cystitis and/or chronic outlet obstruction. There are sutures at the level of the mid sigmoid colon. The appendix is unremarkable. There is no free intraperitoneal air. There is no drainable fluid collection. There is no free pelvic fluid. There is no identified abnormally enlarged lymph node in the abdomen or pelvis which meets CT size criteria for adenopathy. There are multilevel degenerative changes of the spine. There is no identified bone lesion suspicious for bone metastasis. There are bilateral sacroiliac degenerative changes. IMPRESSION: 1. Sutures at the level of the mid sigmoid colon and post operative changes of right partial hepatectomy. 2. No evidence of residual or recurrent malignancy or metastatic disease at the level of the chest, abdomen, or pelvis. 3. No identified central pulmonary embolus. Dictated by: Dictated on workstation # [id number]
== END ==
LOC: RAD 08:53
PROVIDERS: ATTEND Internal Medicine Hematology & Oncology
DX: C18.9 Malignant neoplasm of colon, unspecified (principal); I26.99 Other pulmonary embolism without acute cor pulmonale; Z90.49 Acquired absence of other specified parts of digestive tract; Z90.89 Acquired absence of other organs
CPT/HCPCS: 71260; 74178

== ENCOUNTER 2018-09-16 07:52 | Outpatient (RCR) | payer MEDICARE, OTHER ==
[2018-09-09 09:29] LABS: BASOPHILS % (AUTO) 0 % (0-10); EOSINOPHILS # (AUTO) 0.2 10^3/uL (0.0-0.3); EOSINOPHILS % (AUTO) 4 % (0-10); HEMATOCRIT 43 % (40-54); HEMOGLOBIN 14.6 G/DL (13.3-17.7); LYMPHOCYTES # (AUTO) 1.1 X 10^3 (1.0-4.0); LYMPHOCYTES % (AUTO) 22 % (12-44); MEAN CORPUSCULAR HEMOGLOBIN 30 PG (25-34); MEAN CORPUSCULAR HGB CONC 34 G/DL (32-36); MEAN CORPUSCULAR VOLUME 88 FL (80-99); MEAN PLATELET VOLUME 11.3 FL (7.4-10.4); MONOCYTES # (AUTO) 0.4 X 10^3 (0.0-1.0); MONOCYTES % (AUTO) 9 % (0-12); NEUTROPHILS # (AUTO) 3.3 X 10^3 (1.8-7.8); NEUTROPHILS % (AUTO) 65 % (42-75); PLATELET COUNT 207 10^3/uL (130-400); RED CELL DISTRIBUTION WIDTH 13.7 % (10.0-14.5)
[2018-09-09 09:48] LABS: INR 2.2 (0.8-1.4); PROTHROMBIN TIME PATIENT 25.2 SEC (12.2-14.7)
[2018-09-09 09:53] LABS: ALANINE AMINOTRANSFERASE 16 U/L (0-55); ALBUMIN 4.4 GM/DL (3.2-4.5); ALKALINE PHOSPHATASE 62 U/L (40-136); BILIRUBIN,TOTAL 0.8 MG/DL (0.1-1.0); BUN/CREATININE RATIO 10; CALCIUM 9.5 MG/DL (8.5-10.1); CARBON DIOXIDE 26 MMOL/L (21-32); CHLORIDE 106 MMOL/L (98-107); CREATININE SERUM 1.06 MG/DL (0.60-1.30); GFR ESTIMATED > 60; GLUCOSE 111 MG/DL (70-105); SODIUM 142 MMOL/L (135-145); TOTAL PROTEIN 7.1 GM/DL (6.4-8.2)
[~2018-09-16 07:52] MED LIST changes: -BARIUM SUSPENSION 2.1% (VANILLA SILQ) 450 ML PO ONE; -HOLD METFORMIN - RECEIVED CONTRAST 20 ML VIAL IV SCH; -IOHEXOL 350 MG/ML 100 ML (OMNIPAQUE 350) VIAL IV ONE; -NS 100 ML (IVPB) BAG IV ONE
== END 2018-12-08 | disposition home or self-care (01) ==
LOC: ONC 07:52
PROVIDERS: ATTEND Internal Medicine Hematology & Oncology
DX: C78.7 Secondary malignant neoplasm of liver and intrahepatic bile duct (principal); Z85.038 Personal history of other malignant neoplasm of large intestine; N40.0 Benign prostatic hyperplasia without lower urinary tract symptoms; F10.21 Alcohol dependence, in remission; Z86.711 Personal history of pulmonary embolism; Z86.718 Personal history of other venous thrombosis and embolism; Z79.01 Long term (current) use of anticoagulants; Z79.899 Other long term (current) drug therapy
CPT/HCPCS: 36415; 80053; 82378; 85025; 85610; 99213

== ENCOUNTER → 2019-09-17 | Outpatient (CLI) | payer MEDICARE ==
[~2019-09-17] MED LIST changes: -WARF10TA44 PO; +WRF10T PO
[2019-09-17 08:25] LABS: BASOPHILS % (AUTO) 0 % (0-10); EOSINOPHILS # (AUTO) 0.3 10^3/uL (0.0-0.3); EOSINOPHILS % (AUTO) 6 % (0-10); HEMATOCRIT 45 % (40-54); HEMOGLOBIN 14.8 G/DL (13.3-17.7); LYMPHOCYTES % (AUTO) 20 % (12-44); MEAN CORPUSCULAR HEMOGLOBIN 30 PG (25-34); MEAN CORPUSCULAR HGB CONC 33 G/DL (32-36); MEAN CORPUSCULAR VOLUME 90 FL (80-99); MEAN PLATELET VOLUME 11.2 FL (7.4-10.4); MONOCYTES # (AUTO) 0.4 X 10^3 (0.0-1.0); MONOCYTES % (AUTO) 8 % (0-12); NEUTROPHILS # (AUTO) 3.3 X 10^3 (1.8-7.8); NEUTROPHILS % (AUTO) 65 % (42-75); PLATELET COUNT 198 10^3/uL (130-400); RED CELL DISTRIBUTION WIDTH 13.6 % (10.0-14.5); WHITE BLOOD COUNT 5.1 10^3/uL (4.3-11.0)
[2019-09-17 08:35] LABS: INR 2.7 (0.8-1.4); PROTHROMBIN TIME PATIENT 29.4 SEC (12.2-14.7)
[2019-09-17 08:46] LABS: ALANINE AMINOTRANSFERASE 16 U/L (0-55); ALBUMIN 4.4 GM/DL (3.2-4.5); ALKALINE PHOSPHATASE 60 U/L (40-136); BILIRUBIN,TOTAL 0.5 MG/DL (0.1-1.0); BUN/CREATININE RATIO 13; CALCIUM 9.6 MG/DL (8.5-10.1); CARBON DIOXIDE 25 MMOL/L (21-32); CHLORIDE 106 MMOL/L (98-107); CREATININE SERUM 1.07 MG/DL (0.60-1.30); GFR ESTIMATED > 60; GLUCOSE 111 MG/DL (70-105); POTASSIUM 4.8 MMOL/L (3.6-5.0); SODIUM 142 MMOL/L (135-145); TOTAL PROTEIN 7.2 GM/DL (6.4-8.2)
== END ==
LOC: EDSTATUS 12-09 11:50 → ONC 08:11
PROVIDERS: ATTEND Internal Medicine Hematology & Oncology
DX: I26.99 Other pulmonary embolism without acute cor pulmonale (principal); M47.9 Spondylosis, unspecified; N40.0 Benign prostatic hyperplasia without lower urinary tract symptoms; Z85.05 Personal history of malignant neoplasm of liver; Z86.718 Personal history of other venous thrombosis and embolism; Z85.038 Personal history of other malignant neoplasm of large intestine; F10.21 Alcohol dependence, in remission; Z72.0 Tobacco use
CPT/HCPCS: 80053; 82378; 85025; 85610; G0463; 99213

== ENCOUNTER 2019-10-04 05:30 | Outpatient (RCR) | payer MEDICARE ==
[~2019-10-04] VITALS: Ht 177 cm; Wt 95.0 kg
== END 2019-10-04 10:14 | disposition home or self-care (01) ==
LOC: PREOP 05:30
PROVIDERS: ATTEND Surgery
DX: Z01.812 Encounter for preprocedural laboratory examination (principal); Z12.11 Encounter for screening for malignant neoplasm of colon; Z85.038 Personal history of other malignant neoplasm of large intestine; Z20.828 Contact with and (suspected) exposure to other viral communicable diseases
CPT/HCPCS: 87635

== ENCOUNTER 2019-10-06 09:34 | Day surgery (SDC) | payer MEDICARE ==
[2019-10-06] VITALS (14 sets, daily range): BP systolic 103–131; BP diastolic 55–82
[~2019-10-06] VITALS: Ht 177 cm; Wt 95.0 kg
[2019-10-06] MEDS ORDERED: NS IV 500 ML 500 ML ONE ×2 (09:46→12:09)
[2019-10-06] MEDS: NS IV 500 ML 500 ML IV PRN ×2 (09:55→12:07)
[2019-10-06] MEDS ORDERED: fentaNYL INJECTION 100 MCG/2 ML AMP IVP ONE (10:00)
[2019-10-06] MEDS ORDERED: LIDOCAINE JELLY 2% 6 ML SYRINGE MM PRN (10:00)
--- OUTSIDE RECORDS SUMMARY | 2019-10-06 10:20 | XMS REPORT | Continuity of Care Document ---
Author Author [facility] Organization [facility] Address Unknown Phone Unavailable Care Team Providers Care Violin Mechanic Name Role Phone [facility] Unavailable Unavailable Problems Problem Status Onset Date Classification Date Reported Comments Source Urinary retention Active 05/03/2013 10/06/2019 [facility], BPH (benign prostatic hyperplasia) Active 05/01/2013 10/06/2019 [facility], Liver tumor Active 04/29/2013 10/06/2019 [facility], S/P exploratory laparotomy Act geovani 04/29/2013 10/06/2019 [facility], Pulmonary embolus Active 04/16/2013 10/06/2019 [facility], Metastatic adenocarcinoma to liver Active 02/26/2013 10/06/2019 [facility], Cancer of sigmoid colon Active 07/11/2012 10/06/2019 [facility], Medications Medication Details Route Status Patient Instructions Ordering Provider Order Date Source rivaroxaban (XARELTO) 20 mg tab tablet Take 20 mg by mouth at bedtime daily. Oral Active [facility], oxyCODone (ROXICODONE) 5 mg tablet Take 1-2 Tabs by mouth every 4 hours as needed for Pain Earliest Fill Date: 05/05/13 Oral Active [facility], tamsulosin (FLOMAX) 0.4 mg capsule Take 1 Cap by mouth daily after breakfast. Oral Active [facility], polyethylene glycol 3350 (GLYCOLAX; JORGE LAX) 17 gram/dose powder Take 17 g by mouth daily. Oral Active [facility], senna/docusate (SENOKOT-S) 8.6/50 mg tablet Take 2 Tabs by mouth twice daily. Oral Active [facility], Allergies, Adverse Reactions, Alerts No Known Medication Allergies Immunizations No Data Provided for This Section Results No Data Provided for This Section Pathology Reports No Data Provided for This Section Diagnostic Reports No Data Provided for This Section Consultation Notes No Data Provided for This Section Discharge Summaries No Data Provided for This Section History and Physicals No Data Provided for This Section Vital Signs Vital Sign Value Date Comments Source Systolic blood pressure 115 mm [Hg] 05/14/2013 [facility], Diastolic blood pressure 79 mm [Hg] 05/14/2013 [facility], Heart rate 89 /min 05/14/2013 [facility], Body temperature 36.89 Petra 05/14/2013 [facility], Body height 179.1 cm 05/14/2013 [facility], Body weight 91.717 kg 05/14/2013 [facility], BMI 28.60 kg/m2 05/14/2013 [facility], Oxygen saturation in Arterial blood by Pulse oximetry 100 % 05/14/2013 [facility] , Encounters Location Location Details Encounter Type Encounter Number Reason For Visit Attending Provider ADM Date DC Date Status Source O Active [facility], Procedures No Data Provided for This Section Plan of Care Plan of Care Date Source Health MaintenanceDue DateLast DoneComme ntsHIV [id number]/14/1970DTAP/TDAP VACCINES (1 - Tdap)1973HEPATITIS C ANZTXUFHV49/14/1973PHYSICAL (COMPREHENSIVE) EXAM1973COLORECTAL CANCER GJOUVDBNH98/14/2005SHINGLES RECOMBINANT VACCINE (1 of 2)2005INFLUENZA BAOIIPZ7412/09/2019 10/06/2019 [facility], Social History No Data Provided for This Section Assessment and Plan No Data Provided for This Section Family History Value Date S ource RelationNameStatusCommentsFatherDeceased (Age 80)LeukemiaMotherAliveSisterAliveSisterAliveSisterAlive 10/06/2019 [facility] , Advance Directives Order Name Results Value Date Source Advance Directives Advance Dir ectives Documents on FileTypeDate RecordedPatien t RepresentativeExplanationAdvance Directive/DPOA02/18/2013 9:48 AMLatest Code Status on FileCode StatusDate ActivatedDate InactivatedCommentsFull Code04/29/2013 1:30 05/06/2013 6:24 PMProvider has discussed Code Status w/Patient or Family?Yes 10/06/2019 [facility], Functional Status No Data Provided for This Section
--- OUTSIDE RECORDS SUMMARY | 2019-10-06 10:22 | XMS REPORT | Continuity of Care Document ---
Author Organization Unknown Address Unknown Phone Unavailable Allergies Active Description Code Type Severity Reaction Onset Reported/Identified Relationship to Patient Clinical Status Yes No Known Drug Allergies [id number] Drug Allergy Unknown N/A 10/01/2019 Medications There is no data. 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 02/07/1328 LEANDRA BABCOCK MD Ot Z86.711 PERSONAL HISTORY OF PULMONARY EMBOLISM 02/07/1328 LEANDRA BABCOCK MD Ot Z86.718 PERSONAL HISTORY OF OTHER VENOUS THROMBO 07/17/2011 Ot 153.3 MAL TAYLOR SIGMOID COLON 07/17/2011 Ot 196.2 MAL TAYLOR LYMPH INTRA-ABD 08/08/2011 Ot 153.3 MAL TAYLOR SIGMOID COLON 08/08/2011 Ot 196.2 MAL TAYLOR LYMPH INTRA-ABD 11/05/2011 Ot 153.3 MAL TAYLOR SIGMOID COLON 11/05/2011 Ot 196.2 MAL TAYLOR LYMPH INTRA-ABD 11/05/2011 Ot V58.11 ENC OUNTER FOR ANTINEOPLASTIC CHEMOTHERAP 02/05/2012 Ot 153.3 MAL TAYLOR SIGMOID COLON 02/05/2012 Ot 196.2 MAL TAYLOR LYMPH INTRA-ABD 02/05/2012 Ot V58.11 ENC OUNTER FOR ANTINEOPLASTIC CHEMOTHERAP 03/25/2012 Ot 153.3 MAL TAYLOR SIGMOID COLON 05/05/2012 Ot 153.3 MAL TAYLOR SIGMOID COLON 05/05/2012 Ot 196.2 MAL TAYLOR LYMPH INTRA-ABD 05/05/2012 Ot V58.11 ENC OUNTER FOR ANTINEOPLASTIC CHEMOTHERAP 06/08/2012 Ot V10.05 HX OF COLONIC MALIGNANCY 06/08/2012 Ot V76.51 SCR EEN MAL NEOP- COLON 01/05/2013 LEANDRA BABCOCK MD Ot 196.9 MAL TAYLOR LYMPH NODE NOS 01/05/2013 LEANDRA BABCOCK MD Ot 197.7 SECOND MALIG TAYLOR LIVER 01/05/2013 LEANDRA BABCOCK MD Ot 298.9 PSYCHOSIS NOS 01/05/2013 LEANDRA BABCOCK MD Ot 305.01 ALCOHOL ABUSE-CONTINUOUS 01/05/2013 LEANDRA BABCOCK MD Ot 338.29 OTHER CHRONIC PAIN 01/05/2013 LEANDRA BABCOCK MD Ot 415.19 OTH PULMON EMBOLISM/INFARCT 01/05/2013 LEANDRA BABCOCK MD Ot 453.85 ACUTE VENOUS EMBOLISM AND THROMBOSIS OF 01/05/2013 LEANDRA BABCOCK MD Ot 453.86 ACUTE VENOUS EMBOLISM THROMBOSIS OF IN 01/05/2013 LEANDRA BABCOCK MD Ot 486 PNEUMONIA, ORGANISM NOS 01/05/2013 LEANDRA BABCOCK MD Ot 564.00 UNSPEC CONSTIPATION 01/05/2013 LEANDRA BABCOCK MD Ot 724.2 LUMBAGO 01/05/2013 LEANDRA BABCOCK MD Ot 784.0 HEADACHE 01/05/2013 LEANDRA BABCOCK MD Ot V10.05 HX OF COLONIC MALIGNANCY 01/05/2013 LEANDRA BABCOCK MD Ot V45.72 ACQRD ABSENCE INTESTINE - LARGE/SMALL 01/14/2013 TEJAS JIMENEZ, ANDRE Patton Ot 998.12 HEMATOMA COMPLIC A PROC 01/14/2013 TEJAS JIMENEZ, ANDRE Patton Ot V12.55 PERSONAL HISTORY OF PULMONARY EMBOLISM 04/12/2013 LEANDRA BABCOCK MD Ot 153.9 MALIGNANT TAYLOR COLON NOS 04/12/2013 LEANDRA BABCOCK MD Ot 197.7 SECOND MALIG TAYLOR LIVER 04/12/2013 LEANDRA BABCOCK MD Ot 305.00 ALCOHOL ABUSE-UNSPEC 04/12/2013 LEANDRA BABCOCK MD Ot 415.19 OTH PULMON EMBOLISM/INFARCT 04/12/2013 LEANDRA BABCOCK MD Ot 453.85 ACUTE VENOUS EMBOLISM AND THROMBOSIS OF 04/12/2013 LEANDRA BABCOCK MD Ot 453.86 ACUTE VENOUS EMBOLISM THROMBOSIS OF IN 04/12/2013 LEANDRA BABCOCK MD Ot 996.74 OTH COMPL DUE TO OTH VASCULAR DEVICE,IMP 04/12/2013 LEANDRA BABCOCK MD Ot V58.11 ENCOUNTER FOR ANTINEOPLASTIC CHEMOTHERAP 04/12/2013 LEANDRA BABCOCK MD Ot V58.61 ANTICOAGULANTS,LT,CURRENT USE 04/12/2013 LEANDRA BABCOCK MD Ot V58.69 OTH MED,LT,CURRENT USE 07/13/2013 LEANDRA BABCOCK MD Ot 153.9 MALIGNANT TAYLOR COLON NOS 07/13/2013 LEANDRA BABCOCK MD Ot 197.7 SECOND MALIG TAYLOR LIVER 07/13/2013 LEANDRA BABCOCK MD Ot 305.00 ALCOHOL ABUSE-UNSPEC 07/13/2013 LEANDRA BABCOCK MD Ot 415.19 OTH PULMON EMBOLISM/INFARCT 07/13/2013 LEANDRA BABCOCK MD Ot 453.85 ACUTE VENOUS EMBOLISM AND THROMBOSIS OF 07/13/2013 LEANDRA BABCOCK MD Ot 453.86 ACUTE VENOUS EMBOLISM THROMBOSIS OF IN 07/13/2013 LEANDRA BABCOCK MD Ot 996.74 OTH COMPL DUE TO OTH VASCULAR DEVICE,IMP 07/13/2013 LEANDRA BABCOCK MD Ot V58.0 ENCOUNTER FOR RADIOTHERAPY 07/13/2013 LEANDRA BABCOCK MD Ot V58.61 ANTICOAGULANTS,LT,CURRENT USE 07/13/2013 LEANDRA BABCOCK MD Ot V58.69 OTH MED,LT,CURRENT USE 10/19/2013 LEANDRA BABCOCK MD Ot 153.9 MALIGNANT TAYLOR COLON NOS 10/19/2013 LEANDRA BABCOCK MD Ot 197.7 SECOND MALIG TAYLOR LIVER 10/19/2013 LEANDRA BABCOCK MD Ot 305.00 ALCOHOL ABUSE-UNSPEC 10/19/2013 LEANDRA BABCOCK MD Ot 415.19 OTH PULMON EMBOLISM/INFARCT 10/19/2013 LEANDRA BABCOCK MD Ot 453.85 ACUTE VENOUS EMBOLISM AND THROMBOSIS OF 10/19/2013 LEANDRA BABCOCK MD Ot 453.86 ACUTE VENOUS EMBOLISM THROMBOSIS OF IN 10/19/2013 LEANDRA BABCOCK MD Ot 996.74 OTH COMPL DUE TO OTH VASCULAR DEVICE,IMP 10/19/2013 LEANDRA BABCOCK MD Ot V58.11 ENCOUNTER FOR ANTINEOPLASTIC CHEMOTHERAP 10/19/2013 LEANDRA BABCOCK MD Ot V58.61 ANTICOAGULANTS,LT,CURRENT USE 10/19/2013 LEANDRA BABCOCK MD Ot V58.69 OTH MED,LT,CURRENT USE 02/28/2014 LEANDRA BABCOCK MD Ot 153.9 02/28/2014 YOKO MD, LEANDRA K Ot 197.7 02/28/2014 YOKO JIMENEZ, LEANDRA Dontae Ot 305.00 02/28/2014 YOKO JIMENEZ, LEANDRA Diggs Ot 415.19 02/28/2014 YOKO JIMENEZ, LEANDRA Diggs Ot 453.85 02/28/2014 YOKO JIMENEZ, LEANDRA Diggs Ot 453.86 02/28/2014 YOKO JIMENEZ, LEANDRA Diggs Ot 996.74 02/28/2014 YOKO JIMENEZ, LEANDRA K Ot V58.61 02/28/2014 YOKO JIMENEZ, LEANDRA K Ot V58.69 02/28/2014 YOKO JIMENEZ, LEANDRA K Ot V58.81 03/01/2014 YOKO JIMENEZ, LEANDRA Dontae Ot 153.9 03/01/2014 YOKO JIMENEZ, LEANDRA Diggs Ot 197.7 03/01/2014 YOKO JIMENEZ, LEANDRA Diggs Ot 305.00 03/01/2014 YOKO JIMENEZ, LEANDRA Diggs Ot 415.19 03/01/2014 YOKO JIMENEZ, LEANDRA Diggs Ot 453.85 03/01/2014 YOKO JIMENEZ, LEANDRA Diggs Ot 453.86 03/01/2014 YOKO JIMENEZ, LEANDRA Diggs Ot 996.74 03/01/2014 YOKO JIMENEZ, LEANDRA Diggs Ot V58.61 03/01/2014 YOKO JIMENEZ, LEANDRA Diggs Ot V58.69 03/01/2014 YOKO JIMENEZ, LEANDRA Diggs Ot V58.81 03/01/2014 YOKO JIMENEZ, LEANDRA Diggs Ot 153.9 03/01/2014 YOKO JIMENEZ, LEANDRA Diggs Ot 197.7 03/01/2014 YOKO JIMENEZ, LEANDRA Diggs Ot 305.00 03/01/2014 YOKO JIMENEZ, LEANDRA Diggs Ot 415.19 03/01/2014 YOKO JIMENEZ, LEANDRA Diggs Ot 453.85 03/01/2014 YOKO JIMENEZ, LEANDRA Diggs Ot 453.86 03/01/2014 YOKO JIMENEZ, LEANDRA Diggs Ot 996.74 03/01/2014 YOKO JIMENEZ, LEANDRA K Ot V58.61 03/01/2014 YOKO JIMENEZ, LEANDRA Diggs Ot V58.69 03/01/2014 YOKO JIMENEZ, LEANDRA Diggs Ot V58.81 03/02/2014 YOKO JIMENEZ, LEANDRA Diggs Ot 153.9 03/02/2014 YOKO JIMENEZ, LEANDRA Diggs Ot 197.7 03/02/2014 YOKO JIMENEZ, LEANDRA Diggs Ot 305.00 03/02/2014 YOKO JIMENEZ, LEANDRA Diggs Ot 415.19 03/02/2014 YOKO JIMENEZ, LEANDRA Diggs Ot 453.85 03/02/2014 YOKO JIMENEZ, LEANDRA Dontae Ot 453.86 03/02/2014 YOKO JIMENEZ, LEANDRA Diggs Ot 996.74 03/02/2014 YOKO JIMENEZ, LEANDRA Diggs Ot V58.61 03/02/2014 YOKO JIMENEZ, LEANDRA Diggs Ot V58.69 03/02/2014 YOKO JIMENEZ, LEANDRA Diggs Ot V58.81 03/30/2014 YOKO JIMENEZ, LEANDRA Diggs Ot 153.9 03/30/2014 YOKO JIMENEZ, LEANDRA Diggs Ot 197.7 03/30/2014 YOKO JIMENEZ, LEANDRA Diggs Ot 305.00 03/30/2014 YOKO JIMENEZ, LEANDRA Diggs Ot 415.19 03/30/2014 YOKO JIMENEZ, LEANDRA Diggs Ot 453.85 03/30/2014 YOKO JIMENEZ, LEANDRA Diggs Ot 453.86 03/30/2014 YOKO JIMENEZ, LEANDRA Diggs Ot 996.74 03/30/2014 YOKO JIMENEZ, LEANDRA Diggs Ot V58.61 03/30/2014 YOKO JIMENEZ, LEANDRA Diggs Ot V58.69 03/30/2014 YOKO JIMENEZ, LEANDRA Diggs Ot V58.81 04/01/2014 Ot 153.9 04/01/2014 Ot 153.9 04/01/2014 Ot V72.63 04/01/2014 Ot V74.8 04/01/2014 Ot 153.3 04/01/2014 Ot 196.2 04/01/2014 Ot 305.1 04/01/2014 Ot 600.00 04/01/2014 Ot 153.9 04/01/2014 Ot V72.63 04/01/2014 Ot V74.8 04/01/2014 Ot 153.9 04/01/2014 Ot 153.3 04/01/2014 Ot 196.2 04/01/2014 Ot V58.11 04/01/2014 Ot 153.9 04/01/2014 Ot V72.84 04/01/2014 Ot V74.8 04/01/2014 JUSTIN STAUFFER FAMILY SERVICE WORKER Ot 153.3 04/01/2014 JUSTIN STAUFFER FAMILY SERVICE WORKER Ot 196.2 04/01/2014 JUSTIN STAUFFER FAMILY SERVICE WORKER Ot V58.11 04/01/2014 Ot V72.84 04/01/2014 TEJAS JIMENEZ, ANDRE Patton Ot 729.92 04/01/2014 TEJAS JIMENEZ, ANDRE Patton Ot V72.84 04/01/2014 YESSICA JIMENEZ, MALVIN Giron Ot 789. 01 04/01/2014 YESSICA JIMENEZ, MALVIN R Ot 793. 6 04/01/2014 YOKO JIMENEZ, LEANDRA K Ot 719.40 04/01/2014 YOKO JIMENEZ, LEANDRA Diggs Ot 722.51 04/01/2014 YOKO JIMENEZ, LEANDRA K Ot 733.90 04/01/2014 YOKO JIMENEZ, LEANDRA Diggs Ot 789.02 04/01/2014 YOKO JIMENEZ, LEANDRA Diggs Ot V10.05 04/01/2014 YOKO JIMENEZ, LEANDRA K Ot 153.9 04/01/2014 YOKO JIMENEZ, LEANDRA K Ot 719.40 04/01/2014 YOKO JIMENEZ, LEANDRA K Ot 724.5 04/01/2014 YOKO JIMENEZ, LEANDRA Diggs Ot 733.90 04/01/2014 YOKO JIMENEZ, LEANDRA K Ot 786.50 04/01/2014 YOKO JIMENEZ, LEANDRA K Ot 789.02 04/01/2014 YOKO JIMENEZ, LEANDRA K Ot 153.3 04/01/2014 YOKO JIMENEZ, LEANDRA K Ot 197.7 04/01/2014 YOKO JIMENEZ, LEANDRA K Ot 153.9 04/01/2014 YOKO JIMENEZ, LEANDRA K Ot 197.7 04/01/2014 YOKO JIMENEZ, LEANDRA K Ot 305.00 04/01/2014 YOKO JIMENEZ, LEANDRA K Ot 415.19 04/01/2014 YOKO JIMENEZ, LEANDRA K Ot 453.85 04/01/2014 YOKO JIMENEZ, LEANDRA K Ot 453.86 04/01/2014 YOKO JIMENEZ, LEANDRA K Ot 996.74 04/01/2014 YOKO JIMENEZ, LEANDRA K Ot V58.61 04/01/2014 YOKO JIMENEZ, LEANDRA K Ot V58.69 04/01/2014 YOKO JIMENEZ, LEANDRA K Ot V58.81 04/01/2014 YOKO JIMENEZ, LEANDRA K Ot 153.9 04/01/2014 YOKO JIMENEZ, LEANDRA K Ot 197.7 04/01/2014 YOKO JIMENEZ, LEANDRA K Ot 305.00 04/01/2014 YOKO JIMENEZ, LEANDRA K Ot 415.19 04/01/2014 YOKO JIMENEZ, LEANDRA K Ot 453.85 04/01/2014 YOKO JIMENEZ, LEANDRA K Ot 453.86 04/01/2014 YOKO JIMENEZ, LEANDRA K Ot 996.74 04/01/2014 YOKO JIMENEZ, LEANRDA K Ot V58.61 04/01/2014 YOKO JIMENEZ, LEANDRA K Ot V58.69 04/01/2014 YOKO JIMENEZ, LEANDRA K Ot V58.81 04/05/2014 YOKO JIMENEZ, LEANDRA K Ot 153.9 04/05/2014 YOKO JIMENEZ, LEANDRA Diggs Ot 197.7 04/05/2014 YOKO JIMENEZ, LEANDRA Diggs Ot 305.00 04/05/2014 YOKO JIMENEZ, LEANDRA Dontae Ot 415.19 04/05/2014 YOKO JIMENEZ, LEANDRA Diggs Ot 453.85 04/05/2014 YOKO JIMENEZ, LEANDRA Diggs Ot 453.86 04/05/2014 YOKO JIMENEZ, LEANDRA Diggs Ot 996.74 04/05/2014 YOKO JIMENEZ, LEANDRA Diggs Ot V58.61 04/05/2014 YOKO JIMENEZ, LEANDRA Diggs Ot V58.69 04/05/2014 YOKO JIMENEZ, LEANDRA Diggs Ot V58.81 04/28/2014 YOKO JIMENEZ, LEANDRA Dontae Ot 153.9 04/28/2014 YOKO JIMENEZ, LEANDRA Diggs Ot 197.7 04/28/2014 YOKO JIMENEZ, LEANDRA Diggs Ot 305.00 04/28/2014 YOKO JIMENEZ, LEANDRA Dontae Ot 415.19 04/28/2014 YOKO JIMENEZ, LEANDRA Diggs Ot 453.85 04/28/2014 YOKO JIMENEZ, LEANDRA Diggs Ot 453.86 04/28/2014 YOKO JIMENEZ, LEANDRA Diggs Ot 996.74 04/28/2014 YOKO JIMENEZ, LEANDRA Diggs Ot V58.61 04/28/2014 YOKO JIMENEZ, LEANDRA Diggs Ot V58.69 04/28/2014 YOKO JIMENEZ, LEANDRA Diggs Ot V58.81 05/30/2014 YOKO JIMENEZ, LEANDRA Dontae Ot 153.9 05/30/2014 YOKO JIMENEZ, LEANDRA Diggs Ot 197.7 05/30/2014 YOKO JIMENEZ, LEANDRA Diggs Ot 305.00 05/30/2014 YOKO JIMENEZ, LEANDRA Diggs Ot 415.19 05/30/2014 YOKO JIMENEZ, LEANDRA Diggs Ot 453.85 05/30/2014 YOKO JIMENEZ, LEANDRA Diggs Ot 453.86 05/30/2014 YOKO JIMENEZ, LEANDRA Diggs Ot 996.74 05/30/2014 YOKO JIMENEZ, LEANDRA Diggs Ot V58.61 05/30/2014 YOKO JIMENEZ, LEANDRA Diggs Ot V58.69 05/30/2014 YOKO JIMENEZ, LEANDRA Diggs Ot V58.81 05/30/2014 Ot 153.9 05/30/2014 Ot 153.9 05/30/2014 Ot V72.63 05/30/2014 Ot V74.8 05/30/2014 Ot 153.3 05/30/2014 Ot 196.2 05/30/2014 Ot 305.1 05/30/2014 Ot 600.00 05/30/2014 Ot 153.9 05/30/2014 Ot V72.63 05/30/2014 Ot V74.8 05/30/2014 Ot 153.9 05/30/2014 Ot 153.3 05/30/2014 Ot 196.2 05/30/2014 Ot V58.11 05/30/2014 Ot 153.9 05/30/2014 Ot V72.84 05/30/2014 Ot V74.8 05/30/2014 STAUFFERJUSTIN Sanchez FAMILY SERVICE WORKER Ot 153.3 05/30/2014 JUSTIN STAUFFER FAMILY SERVICE WORKER Ot 196.2 05/30/2014 STAUFFERJUSTIN Sanchez FAMILY SERVICE WORKER Ot V58.11 05/30/2014 Ot V72.84 05/30/2014 TEJAS JIMENEZ, ANDRE M Ot 729.92 05/30/2014 TEJAS JIMENEZ, ANDRE M Ot V72.84 05/30/2014 YESSICA JIMENEZ, MALVIN R Ot 789. 01 05/30/2014 YESSICA JIMENEZ, MALVIN R Ot 793. 6 05/30/2014 YOKO JIMENEZ, LEANDRA Dontae Ot 719.40 05/30/2014 YOKO JIMENEZ, LEANDRA Dontae Ot 722.51 05/30/2014 YOKO JIMENEZ, LEANDRA Dontae Ot 733.90 05/30/2014 YOKO JIMENEZ, LEANDRA K Ot 789.02 05/30/2014 YOKO JIMENEZ, LEANDRA Diggs Ot V10.05 05/30/2014 YOKO JIMENEZ, LEANDRA Dontae Ot 153.9 05/30/2014 YOKO JIMENEZ, LEANDRA Dontae Ot 719.40 05/30/2014 YOKO JIMENEZ, LEANDRA Dontae Ot 724.5 05/30/2014 YOKO JIMENEZ, LEANDRA K Ot 733.90 05/30/2014 YOKO JIMENEZ, LEANDRA Dontae Ot 786.50 05/30/2014 YOKO JIMENEZ, LEANDRA K Ot 789.02 05/30/2014 YOKO JIMENEZ, LEANDRA K Ot 153.3 05/30/2014 YOKO JIMENEZ, LEANDRA K Ot 197.7 06/01/2014 YOKO JIMENEZ, LEANDRA Dontae Ot 153.9 06/01/2014 YOKO JIMENEZ, LEANDRA Dontae Ot 197.7 06/01/2014 YOKO JIMENEZ, LEANDRA Dontae Ot 305.00 06/01/2014 YOKO JIMENEZ, LEANDRA Dontae Ot 415.19 06/01/2014 YOKO JIMENEZ, LEANDRA Dontae Ot 453.85 06/01/2014 YOKO JIMENEZ, LEANDRA Dontae Ot 453.86 06/01/2014 YOKO MD, LEANDRA K Ot 996.74 06/01/2014 YOKO JIMENEZ, LEANDRA K Ot V58.61 06/01/2014 YOKO JIMENEZ, LEANDRA K Ot V58.69 06/01/2014 YOKO JIMENEZ, LEANDRA K Ot V58.81 06/08/2014 YOKO JIMENEZ, LEANDRA K Ot 153.9 06/08/2014 YOKO JIMENEZ, LEANDRA K Ot 197.7 06/08/2014 YOKO JIMENEZ, LEANDRA K Ot 305.00 06/08/2014 YOKO JIMENEZ, LEANDRA K Ot 415.19 06/08/2014 YOKO JIMENEZ, LEANDRA K Ot 453.85 06/08/2014 YOKO JIMENEZ, LEANDRA K Ot 453.86 06/08/2014 YOKO JIMENEZ, LEANDRA K Ot 996.74 06/08/2014 YOKO JIMENEZ, LEANDRA K Ot V58.61 06/08/2014 YOKO JIMENEZ, LEANDRA K Ot V58.69 06/08/2014 YOKO JIMENEZ, LEANDRA K Ot V58.81 06/09/2014 YOKO JIMENEZ, LEANDRA K Ot 153.9 06/09/2014 YOKO JIMENEZ, LEANDRA Dontae Ot 197.7 06/09/2014 YOKO JIMENEZ, LEANDRA K Ot 305.00 06/09/2014 YOKO JIMENEZ, LEANDRA K Ot 415.19 06/09/2014 YOKO JIMENEZ, LEANDRA K Ot 453.85 06/09/2014 YOKO JIMENEZ, LEANDRA K Ot 453.86 06/09/2014 YOKO JIMENEZ, LEANDRA K Ot 996.74 06/09/2014 YOKO JIMENEZ, LEANDRA K Ot V58.61 06/09/2014 YOKO JIMENEZ, LEANDRA K Ot V58.69 06/09/2014 YOKO JIMENEZ, LEANDRA K Ot V58.81 07/18/2014 YOKO JIMENEZ, LEANDRA K Ot 153.9 07/18/2014 YOKO JIMENEZ, LEANDRA K Ot 197.7 07/18/2014 YOKO JIMENEZ, LEANDRA K Ot 305.00 07/18/2014 YOKO JIMENEZ, LEANDRA K Ot 415.19 07/18/2014 YOKO JIMENEZ, LEANDRA K Ot 453.85 07/18/2014 YOKO JIMENEZ, LEANDRA K Ot 453.86 07/18/2014 YOKO JIMENEZ, LEANDRA K Ot 996.74 07/18/2014 YOKO JIMENEZ, LEANDRA K Ot V58.61 07/18/2014 YOKO JIMENEZ, LEANDRA K Ot V58.69 07/18/2014 YOKO JIMENEZ, LEANDRA K Ot V58.81 09/06/2014 YKOO JIMENEZ, LEANDRA K Ot 153.9 09/06/2014 YOKO JIMENEZ, LEANDRA K Ot 197.7 09/06/2014 YOKO JIMENEZ, LEANDRA Diggs Ot 305.00 09/06/2014 YOKO JIMENEZ, LEANDRA Diggs Ot 415.19 09/06/2014 YOKO JIMENEZ, LEANDRA Diggs Ot 453.85 09/06/2014 YOKO JIMENEZ, LEANDRA Diggs Ot 453.86 09/06/2014 YOKO JIMENEZ, LEANDRA Diggs Ot 996.74 09/06/2014 YOKO JIMENEZ, LEANDRA Diggs Ot V58.61 09/06/2014 YOKO JIMENEZ, LEANDRA Diggs Ot V58.69 09/06/2014 YOKO JIMENEZ, LEANDRA Diggs Ot V58.81 09/12/2014 Ot 153.9 09/12/2014 Ot 153.9 09/12/2014 Ot V72.63 09/12/2014 Ot V74.8 09/12/2014 Ot 153.3 09/12/2014 Ot 196.2 09/12/2014 Ot 305.1 09/12/2014 Ot 600.00 09/12/2014 Ot 153.9 09/12/2014 Ot V72.63 09/12/2014 Ot V74.8 09/12/2014 Ot 153.9 09/12/2014 Ot 153.3 09/12/2014 Ot 196.2 09/12/2014 Ot V58.11 09/12/2014 Ot 153.9 09/12/2014 Ot V72.84 09/12/2014 Ot V74.8 09/12/2014 JUSTIN STAUFFER FAMILY SERVICE WORKER Ot 153.3 09/12/2014 JUSTIN STAUFFER FAMILY SERVICE WORKER Ot 196.2 09/12/2014 JUSTIN STAUFFER FAMILY SERVICE WORKER Ot V58.11 09/12/2014 Ot V72.84 09/12/2014 TEJAS JIMENEZ, ANDRE Patton Ot 729.92 09/12/2014 TEJAS JIMENEZ, ANDRE Patton Ot V72.84 09/12/2014 YESSICA JIMENEZ, MALVIN R Ot 789. 01 09/12/2014 YESSICA JIMENEZ, MALVIN R Ot 793. 6 09/12/2014 YOKO JIMENEZ, LEANDRA Dontae Ot 719.40 09/12/2014 YOKO JIMENEZ, LEANDRA Dontae Ot 722.51 09/12/2014 YOKO JIMENEZ, LEANDRA Dontae Ot 733.90 09/12/2014 YOKO JIMENEZ, LEANDRA Dontae Ot 789.02 09/12/2014 YOKO JIMENEZ, LEANDRA K Ot V10.05 09/12/2014 YOKO JIMENEZ, LEANDRA K Ot 153.9 09/12/2014 YOKO JIMENEZ, LEANDRA K Ot 719.40 09/12/2014 YOKO JIMENEZ, LEANDRA K Ot 724.5 09/12/2014 YOKO JIMENEZ, LEANDRA K Ot 733.90 09/12/2014 YOKO JIMENEZ, LEANDRA K Ot 786.50 09/12/2014 YOKO JIMENEZ, LEANDRA K Ot 789.02 09/12/2014 YOKO JIMENEZ, LEANDRA K Ot 153.3 09/12/2014 YOKO JIMENEZ, LEANDRA K Ot 197.7 09/12/2014 YOKO JIMENEZ, LEANDRA K Ot 153.3 09/12/2014 YOKO JIMENEZ, LEANDRA K Ot 153.9 09/12/2014 YOKO JIMENEZ, LEANDRA K Ot 197.7 09/12/2014 YOKO JIMENEZ, LEANDRA K Ot 305.00 09/12/2014 YOKO JIMENEZ, LEANDRA K Ot 415.19 09/12/2014 YOKO JIMENEZ, LEANDRA K Ot 453.85 09/12/2014 YOKO JIMENEZ, LAENDRA K Ot 453.86 09/12/2014 YOKO JIMENEZ, LEANDRA K Ot 996.74 09/12/2014 YOKO JIMENEZ, LEANDRA K Ot V58.61 09/12/2014 YOKO JIMENEZ, LEANDRA K Ot V58.69 09/12/2014 YOKO JIMENEZ, LEANDRA K Ot V58.81 09/20/2014 YOKO JIMENEZ, LEANDRA K Ot 153.9 09/20/2014 YOKO JIMENEZ, LEANDRA K Ot 197.7 09/20/2014 YOKO JIMENEZ, LEANDRA K Ot 305.00 09/20/2014 YOKO JIMENEZ, LEANDRA K Ot 415.19 09/20/2014 YOKO JIMENEZ, LEANDRA K Ot 453.85 09/20/2014 YOKO JIMENEZ, LEANDRA K Ot 453.86 09/20/2014 YOKO JIMENEZ, LEANDRA K Ot 996.74 09/20/2014 YOKO JIMENEZ, LEANDRA K Ot V58.61 09/20/2014 YOKO JIMENEZ, LEANDRA K Ot V58.69 09/20/2014 YOKO JIMENEZ, LEANDRA K Ot V58.81 09/20/2014 YOKO JIMENEZ, LEANDRA K Ot 153.9 09/20/2014 YOKO JIMENEZ, LEANDRA K Ot 197.7 09/20/2014 YOKO JIMENEZ, LEANDRA K Ot 305.00 09/20/2014 YOKO JIMENEZ, LEANDRA K Ot 415.19 09/20/2014 YOKO JIMENEZ, LEANDRA K Ot 453.85 09/20/2014 YOKO MD, LEANDRA K Ot 453.86 09/20/2014 YOKO JIMENEZ, LEANDRA K Ot 996.74 09/20/2014 YOKO JIMENEZ, LEANDRA K Ot V58.61 09/20/2014 YOKO JIMENEZ, LEANDRA K Ot V58.69 09/20/2014 YOKO JIMENEZ, LEANDRA K Ot V58.81 09/20/2014 YOKO JIMENEZ, LEANDRA Dontae Ot 153.9 09/20/2014 YOKO JIMENEZ, LEANDRA K Ot 197.7 09/20/2014 YOKO JIMENEZ, LEANDRA K Ot 305.00 09/20/2014 YOKO JIMENEZ, LEANDRA K Ot 415.19 09/20/2014 YOKO JIMENEZ, LEANDRA K Ot 453.85 09/20/2014 YOKO JIMENEZ, LEANDRA K Ot 453.86 09/20/2014 YOKO JIMENEZ, LEANDRA Dontae Ot 996.74 09/20/2014 YOKO JIMENEZ, LEANDRA K Ot V58.61 09/20/2014 YOKO JIMENEZ, LEANDRA K Ot V58.69 09/20/2014 YOKO JIMENEZ, LEANDRA Dontae Ot V58.81 09/21/2014 YOKO JIMENEZ, LEANDRA Dontae Ot 153.9 09/21/2014 YOKO JIMENEZ, LEANDRA K Ot 197.7 09/21/2014 YOKO JIMENEZ, LEANDRA K Ot 305.00 09/21/2014 YOKO JIMENEZ, LEANDRA K Ot 415.19 09/21/2014 YOKO JIMENEZ, LEANDRA K Ot 453.85 09/21/2014 YOKO JIMENEZ, LEANDRA K Ot 453.86 09/21/2014 YOKO JIMENEZ, LEANDRA K Ot 996.74 09/21/2014 YOKO JIMENEZ, LEANDRA K Ot V58.61 09/21/2014 YOKO JIMENEZ, LEANDRA K Ot V58.69 09/21/2014 YOKO JIMENEZ, LEANDRA K Ot V58.81 12/07/2014 YOKO JIMENEZ, LEANDRA K Ot 153.9 12/07/2014 YOKO JIMENEZ, LEANDRA K Ot 197.7 12/07/2014 YOKO JIMENEZ, LEANDRA K Ot 305.00 12/07/2014 YOKO JIMENEZ, LEANDRA K Ot 415.19 12/07/2014 YOKO JIMENEZ, LEANDRA K Ot 453.85 12/07/2014 YOKO JIMENEZ, LEANDRA K Ot 453.86 12/07/2014 YOKO JIMENEZ, LEANDRA K Ot 996.74 12/07/2014 YOKO JIMENEZ, LEANDRA K Ot V58.61 12/07/2014 YOKO JIMENEZ, LEANDRA Diggs Ot V58.69 12/07/2014 YOKO JIMENEZ, LEANDRA K Ot V58.81 12/13/2014 Ot 153.9 12/13/2014 Ot 153.9 12/13/2014 Ot V72.63 12/13/2014 Ot V74.8 12/13/2014 Ot 153.3 12/13/2014 Ot 196.2 12/13/2014 Ot 305.1 12/13/2014 Ot 600.00 12/13/2014 Ot 153.9 12/13/2014 Ot V72.63 12/13/2014 Ot V74.8 12/13/2014 Ot 153.9 12/13/2014 Ot 153.3 12/13/2014 Ot 196.2 12/13/2014 Ot V58.11 12/13/2014 Ot 153.9 12/13/2014 Ot V72.84 12/13/2014 Ot V74.8 12/13/2014 JUSTIN STAUFFER FAMILY SERVICE WORKER Ot 153.3 12/13/2014 JUSTIN STAUFFER FAMILY SERVICE WORKER Ot 196.2 12/13/2014 STAUFFERJUSTIN Sanchez FAMILY SERVICE WORKER Ot V58.11 12/13/2014 Ot V72.84 12/13/2014 TEJAS JIMENEZ, ANDRE Patton Ot 729.92 12/13/2014 TEJAS JIMENEZ, ANDRE Patton Ot V72.84 12/13/2014 YESSICA JIMENEZ, MALVIN R Ot 789. 01 12/13/2014 YESSICA JIMENEZ, MALVIN R Ot 793. 6 12/13/2014 YOKO JIMENEZ, LEANDRA Dontae Ot 719.40 12/13/2014 YOKO JIMENEZ, LEANDRA Dontae Ot 722.51 12/13/2014 YOKO JIMENEZ, LEANDRA Dontae Ot 733.90 12/13/2014 YOKO JIMENEZ, LEANDRA Dontae Ot 789.02 12/13/2014 YOKO JIMENEZ, LEANDRA Dontae Ot V10.05 12/13/2014 YOKO JIMENEZ, LEANDRA Dontae Ot 153.9 12/13/2014 YOKO JIMENEZ, LEANDRA Dontae Ot 719.40 12/13/2014 YOKO JIMENEZ, LEANDRA Diggs Ot 724.5 12/13/2014 YOKO JIMENEZ, LEANDRA Diggs Ot 733.90 12/13/2014 YOKO JIMENEZ, LEANDRA Dontae Ot 786.50 12/13/2014 YOKO JIMENEZ, LEANDRA Dontae Ot 789.02 12/13/2014 YOKO JIMENEZ, LEANDRA Diggs Ot 153.3 12/13/2014 YOKO JIMENEZ, LEANDRA Dontae Ot 197.7 12/13/2014 YOKO JIMENEZ, LENADRA Diggs Ot 153.3 12/13/2014 YOKO JIMENEZ, LEANDRA Diggs Ot 153.9 12/13/2014 YOKO JIMENEZ, LEANDRA Diggs Ot 197.7 12/13/2014 YOKO JIMENEZ, LEANDRA Diggs Ot 305.00 12/13/2014 YOKO JIMENEZ, LEANDRA Diggs Ot 415.19 12/13/2014 YOKO JIMENEZ, LEANDRA Diggs Ot 453.85 12/13/2014 YOKO JIMENEZ, LEANDRA Diggs Ot 453.86 12/13/2014 YOKO JIMENEZ, LEANDRA Diggs Ot 996.74 12/13/2014 YOKO JIMENEZ, LEANDRA Diggs Ot V58.61 12/13/2014 YOKO JIMENEZ, LEANDRA Diggs Ot V58.69 12/13/2014 YOKO JIMENEZ, LEANDRA Diggs Ot V58.81 12/13/2014 Ot 153.9 12/13/2014 Ot 153.9 12/13/2014 Ot V72.63 12/13/2014 Ot V74.8 12/13/2014 Ot 153.3 12/13/2014 Ot 196.2 12/13/2014 Ot 305.1 12/13/2014 Ot 600.00 12/13/2014 Ot 153.9 12/13/2014 Ot V72.63 12/13/2014 Ot V74.8 12/13/2014 Ot 153.9 12/13/2014 Ot 153.3 12/13/2014 Ot 196.2 12/13/2014 Ot V58.11 12/13/2014 Ot 153.9 12/13/2014 Ot V72.84 12/13/2014 Ot V74.8 12/13/2014 JUSTIN STAUFFER FAMILY SERVICE WORKER Ot 153.3 12/13/2014 JUSTIN STAUFFER FAMILY SERVICE WORKER Ot 196.2 12/13/2014 JUSTIN STAUFFER FAMILY SERVICE WORKER Ot V58.11 12/13/2014 Ot V72.84 12/13/2014 TEJAS JIMENEZ, ANDRE Patton Ot 729.92 12/13/2014 TEJAS JIMENEZ, ANDRE Patton Ot V72.84 12/13/2014 YESSICA JIMENEZ, MALVIN R Ot 789. 01 12/13/2014 YESSICA JIMENEZ, MALVIN R Ot 793. 6 12/13/2014 YOKO JIMENEZ, LEANDRA Diggs Ot 719.40 12/13/2014 YOKO JIMENEZ, LEANDRA Diggs Ot 722.51 12/13/2014 YOKO JIMENEZ, LEANDRA Diggs Ot 733.90 12/13/2014 YOKO JIMENEZ, LEANDRA Diggs Ot 789.02 12/13/2014 YOKO JIMENEZ, LEANDRA Diggs Ot V10.05 12/13/2014 YOKO JIMENEZ, LEANDRA Diggs Ot 153.9 12/13/2014 YOKO JIMENEZ, LEANDRA Diggs Ot 719.40 12/13/2014 YOKO JIMENEZ, LEANDRA Diggs Ot 724.5 12/13/2014 YOKO JIMENEZ, LEANDRA Diggs Ot 733.90 12/13/2014 YOKO JIMENEZ, LEANDRA Diggs Ot 786.50 12/13/2014 YOKO JIMENEZ, LEANDRA Diggs Ot 789.02 12/13/2014 YOKO JIMENEZ, LEANDRA Diggs Ot 153.3 12/13/2014 YOKO JIMENEZ, LEANDRA Diggs Ot 197.7 12/13/2014 YOKO JIMENEZ, LEANDRA Diggs Ot 153.3 12/13/2014 YOKO JIMENEZ, LEANDRA Diggs Ot 153.9 12/13/2014 YOKO JIMENEZ, LEANDRA Diggs Ot 197.7 12/13/2014 YOKO JIMENEZ, LEANDRA Diggs Ot 305.00 12/13/2014 YOKO JIMENEZ, LEANDRA Diggs Ot 415.19 12/13/2014 YOKO JIMENEZ, LEANDRA Diggs Ot 453.85 12/13/2014 YOKO JIMENEZ, LEANDRA Diggs Ot 453.86 12/13/2014 YOKO JIMENEZ, LEANDRA Diggs Ot 996.74 12/13/2014 YOKO JIMENEZ, LEANDRA Diggs Ot V58.61 12/13/2014 YOKO JIMENEZ, LEANDRA Diggs Ot V58.69 12/13/2014 YOKO JIMENEZ, LEANDRA Diggs Ot V58.81 01/03/2015 Ot 153.9 01/03/2015 Ot 153.9 01/03/2015 Ot V72.63 01/03/2015 Ot V74.8 01/03/2015 Ot 153.3 01/03/2015 Ot 196.2 01/03/2015 Ot 305.1 01/03/2015 Ot 600.00 01/03/2015 Ot 153.9 01/03/2015 Ot V72.63 01/03/2015 Ot V74.8 01/03/2015 Ot 153.9 01/03/2015 Ot 153.3 01/03/2015 Ot 196.2 01/03/2015 Ot V58.11 01/03/2015 Ot 153.9 01/03/2015 Ot V72.84 01/03/2015 Ot V74.8 01/03/2015 JUSTIN STAUFFER FAMILY SERVICE WORKER Ot 153.3 01/03/2015 JUSTIN STAUFFER FAMILY SERVICE WORKER Ot 196.2 01/03/2015 YOUSUF STAUFFERMANUEL Laura VAZQUEZ Ot V58.11 01/03/2015 Ot V72.84 01/03/2015 TEJAS JIMENEZ, ANDRE Patton Ot 729.92 01/03/2015 TEJAS JIMENEZ, ANDRE Patton Ot V72.84 01/03/2015 YESSICA JIMENEZ, MALVIN R Ot 789. 01 01/03/2015 YESSICA JIMENEZ, MALVIN R Ot 793. 6 01/03/2015 YOKO JIMENEZ, LEANDRA Dontae Ot 719.40 01/03/2015 YOKO JIMENEZ, LEANDRA Dontae Ot 722.51 01/03/2015 YOKO JIMENEZ, LEANDRA Dontae Ot 733.90 01/03/2015 YOKO JIMENEZ, LEANDRA Dontae Ot 789.02 01/03/2015 YOKO JIMENEZ, LEANDRA Dontae Ot V10.05 01/03/2015 YOKO JIMENEZ, LEANDRA Dontae Ot 153.9 01/03/2015 YOKO JIMENEZ, LEANDRA Dontae Ot 719.40 01/03/2015 YOKO JIMENEZ, LEANDRA Dontae Ot 724.5 01/03/2015 YOKO JIMENEZ, LEANDRA Dontae Ot 733.90 01/03/2015 YOKO JIMENEZ, LEANDRA Dontae Ot 786.50 01/03/2015 YOKO JIMENEZ, LEANDRA Dontae Ot 789.02 01/03/2015 YOKO JIMENEZ, LEANDRA Dontae Ot 153.3 01/03/2015 YOKO JIMENEZ, LEANDRA Dontae Ot 197.7 01/03/2015 YOKO JIMENEZ, LEANDRA Dontae Ot 153.3 01/03/2015 YOKO JIMENEZ, LEANDRA Dontae Ot 153.9 01/03/2015 YOKO JIMENEZ, LEANDRA Dontae Ot 197.7 01/03/2015 YOKO JIMENEZ, LEANDRA Dontae Ot 305.00 01/03/2015 YOKO JIMENEZ, LEANDRA Dontae Ot 415.19 01/03/2015 YOKO JIMENEZ, LEANDRA Dontae Ot 453.85 01/03/2015 YOKO JIMENEZ, LEANDRA Dontae Ot 453.86 01/03/2015 YOKO JIMENEZ, LEANDRA Dontae Ot 996.74 01/03/2015 YOKO JIMENEZ, LEANDRA Dontae Ot V58.61 01/03/2015 YOKO JIMENEZ, LEANDRA Diggs Ot V58.69 01/03/2015 YOKO JIMENEZ, LEANDRA Dontae Ot V58.81 01/05/2015 YOKO JIMENEZ, LEANDRA Dontae Ot C18.7 02/24/2015 YOKO JIMENEZ, LEANDRA Dontae Ot 153.9 02/24/2015 YOKO JIMENEZ, LEANDRA Diggs Ot 197.7 02/24/2015 YOKO JIMENEZ, LEANDRA Dontae Ot 305.00 02/24/2015 YOKO JIMENEZ, LEANDRA Diggs Ot 415.19 02/24/2015 YOKO JIMENEZ, LEANDRA Diggs Ot 453.85 02/24/2015 YOKO JIMENEZ, LEANDRA Diggs Ot 453.86 02/24/2015 YOKO JIMENEZ, LEANDRA Diggs Ot 996.74 02/24/2015 YOKO JIMENEZ, LEANDRA Diggs Ot V58.61 02/24/2015 YOKO JIMENEZ, LEANDRA Diggs Ot V58.69 02/24/2015 YOKO JIMENEZ, LEANDRA Diggs Ot V58.81 02/27/2015 YOKO JIMENEZ, LEANDRA Diggs Ot C18.7 03/13/2015 YOKO JIMENEZ, LEANDRA Diggs Ot C18.7 MALIGNANT NEOPLASM OF SIGMOID COLON 03/13/2015 YOKO JIMENEZ, LEANDRA Diggs Ot C78.7 SECONDARY MALIG NEOPLASM OF LIVER AND IN 03/13/2015 YOKO JIMENEZ, LEANDRA Diggs Ot F10.21 ALCOHOL DEPENDENCE, IN REMISSION 03/13/2015 YOKO JIMENEZ, LEANDRA Diggs Ot N40.0 ENLARGED PROSTATE WITHOUT LOWER URINARY 03/13/2015 YOKO JIMENEZ, LEANDRA Diggs Ot 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 03/13/2015 YOKO JIMENEZ, LEANDRA Diggs Ot Z86.711 PERSONAL HISTORY OF PULMONARY EMBOLISM 03/13/2015 YOKO JIMENEZ, LEANDRA Diggs Ot Z86.718 PERSONAL HISTORY OF OTHER VENOUS THROMBO 03/17/2015 YOKO JIMENEZ, LEANDRA Diggs Ot C18.7 03/17/2015 YOKO JIMENEZ, LEANDRA Diggs Ot C78.7 03/17/2015 YOKO JIMENEZ, LEANDRA Diggs Ot F10.21 03/17/2015 YOKO JIMENEZ, LEANDRA Diggs Ot N40.0 03/17/2015 YOKO JIMNEEZ, LEANDRA Diggs Ot Z79.01 03/17/2015 YOKO JIMENEZ, LEANDRA Diggs Ot Z86.711 03/17/2015 YOKO JIMENEZ, LEANDRA Diggs Ot Z86.718 03/23/2015 YOKO JIMENEZ, LEANDRA Diggs Ot C18.7 03/23/2015 YOKO JIMENEZ, LEANDRA Diggs Ot C78.7 03/23/2015 YOKO JIMENEZ, LEANDRA Diggs Ot F10.21 03/23/2015 YOKO JIMENEZ, LEANDRA Diggs Ot N40.0 03/23/2015 YOKO JIMENEZ, LEANDRA Diggs Ot Z79.01 03/23/2015 YOKO JIMENEZ, LEANDRA Diggs Ot Z86.711 03/23/2015 YOKO JIMENEZ, LEANDRA Diggs Ot Z86.718 04/28/2015 YOKO JIMENEZ, LEANDRA Diggs Ot 153.3 04/28/2015 LEANDRA BABCOCK MD Ot C18.7 05/12/2015 LEANDRA BABCOCK MD Ot 153.3 05/12/2015 LEANDRA BABCOCK MD, Ot C18.7 06/20/2015 LEANDRA BABCOCK MD, Ot C18.7 MALIGNANT NEOPLASM OF SIGMOID COLON 06/20/2015 LEANDRA BABCOCK MD, Ot C78.7 SECONDARY MALIG NEOPLASM OF LIVER AND IN 06/20/2015 LEANDRA BABCOCK MD Ot F10.21 ALCOHOL DEPENDENCE, IN REMISSION 06/20/2015 LEANDRA BABCOCK MD Ot N40.0 ENLARGED PROSTATE WITHOUT LOWER URINARY 06/20/2015 LEANDRA BABCOCK MD Ot Z79.01 INTERMEDIATE (CURRENT) USE OF ANTICOAGULANT 06/20/2015 LEANDRA BABCOCK MD Ot Z86.711 PERSONAL HISTORY OF PULMONARY EMBOLISM 06/20/2015 LEANDRA BABCOCK MD, Ot Z86.718 PERSONAL HISTORY OF OTHER VENOUS THROMBO 07/11/2015 LEANDRA BABCOCK MD, Ot C18.7 MALIGNANT NEOPLASM OF SIGMOID COLON 07/11/2015 LEANDRA BABCOCK MD, Ot C78.7 SECONDARY MALIG NEOPLASM OF LIVER AND IN 07/11/2015 LEANDRA BABCOCK MD Ot F10.21 ALCOHOL DEPENDENCE, IN REMISSION 07/11/2015 LEANDRA BABCOCK MD Ot N40.0 ENLARGED PROSTATE WITHOUT LOWER URINARY 07/11/2015 LEANDRA BABCOCK MD Ot Z79.01 INTERMEDIATE (CURRENT) USE OF ANTICOAGULANT 07/11/2015 LEANDRA BABCOCK MD Ot Z86.711 PERSONAL HISTORY OF PULMONARY EMBOLISM 07/11/2015 LEANDRA BABCOCK MD Ot Z86.718 PERSONAL HISTORY OF OTHER VENOUS THROMBO 07/12/2015 LEANDRA BABCOCK MD Ot C18.7 MALIGNANT NEOPLASM OF SIGMOID COLON 07/12/2015 LEANDRA BABCOCK MD, Ot C78.7 SECONDARY MALIG NEOPLASM OF LIVER AND IN 07/14/2015 LEANDRA BABCOCK MD, Ot C18.7 MALIGNANT NEOPLASM OF SIGMOID COLON 07/14/2015 LEANDRA BABCOCK MD, Ot C78.7 SECONDARY MALIG NEOPLASM OF LIVER AND IN 07/28/2015 LEANDRA BABCOCK MD Ot C18.7 MALIGNANT NEOPLASM OF SIGMOID COLON 07/28/2015 LEANDRA BABCOCK MD, Ot C78.7 SECONDARY MALIG NEOPLASM OF LIVER AND IN 07/28/2015 LEANDRA BABCOCK MD Ot C18.7 MALIGNANT NEOPLASM OF SIGMOID COLON 07/28/2015 LEANDRA BABCOCK MD, Ot C78.7 SECONDARY MALIG NEOPLASM OF LIVER AND IN 07/28/2015 LEANDRA BABCOCK MD Ot F10.21 ALCOHOL DEPENDENCE, IN REMISSION 07/28/2015 LEANDRA BABCOCK MD, Ot N40.0 ENLARGED PROSTATE WITHOUT LOWER URINARY 07/28/2015 LEANDRA BABCOCK MD Ot 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 07/28/2015 LEANDRA BABCOCK MD Ot Z86.711 PERSONAL HISTORY OF PULMONARY EMBOLISM 07/28/2015 LEANDRA BABCOCK MD Ot Z86.718 PERSONAL HISTORY OF OTHER VENOUS THROMBO 07/31/2015 LEANDRA BABCOCK MD Ot C18.7 MALIGNANT NEOPLASM OF SIGMOID COLON 07/31/2015 LEANDRA BABCOCK MD, Ot C78.7 SECONDARY MALIG NEOPLASM OF LIVER AND IN 07/31/2015 LEANDRA BABCOCK MD, Ot F10.21 ALCOHOL DEPENDENCE, IN REMISSION 07/31/2015 LEANDRA BABCOCK MD, Ot N40.0 ENLARGED PROSTATE WITHOUT LOWER URINARY 07/31/2015 LEANDRA BABCOCK MD Ot Z79.01 INTERMEDIATE (CURRENT) USE OF ANTICOAGULANT 07/31/2015 LEANDRA BABCOCK MD, Ot Z86.711 PERSONAL HISTORY OF PULMONARY EMBOLISM 07/31/2015 LEANDRA BABCOCK MD Ot Z86.718 PERSONAL HISTORY OF OTHER VENOUS THROMBO 08/01/2015 LEANDRA BABCOCK MD, Ot C18.7 MALIGNANT NEOPLASM OF SIGMOID COLON 08/01/2015 LEANDRA BABCOCK MD, Ot C78.7 SECONDARY MALIG NEOPLASM OF LIVER AND IN 09/12/2015 LEANDRA BABCOCK MD, Ot C18.7 MALIGNANT NEOPLASM OF SIGMOID COLON 09/12/2015 LEANDRA BABCOCK MD, Ot C78.7 SECONDARY MALIG NEOPLASM OF LIVER AND IN 09/12/2015 LEANDRA BABCOCK MD Ot F10.21 ALCOHOL DEPENDENCE, IN REMISSION 09/12/2015 LEANDRA BABCOCK MD, Ot N40.0 ENLARGED PROSTATE WITHOUT LOWER URINARY 09/12/2015 LEANDRA BABCOCK MD Ot Z79.01 INTERMEDIATE (CURRENT) USE OF ANTICOAGULANT 09/12/2015 LEANDRA BABCOCK MD Ot Z86.711 PERSONAL HISTORY OF PULMONARY EMBOLISM 09/12/2015 LEANDRA BABCOCK MD Ot Z86.718 PERSONAL HISTORY OF OTHER VENOUS THROMBO 09/29/2015 LEANDRA BABCOCK MD Ot C18.7 MALIGNANT NEOPLASM OF SIGMOID COLON 09/29/2015 LEANDRA BABCOCK MD Ot C78.7 SECONDARY MALIG NEOPLASM OF LIVER AND IN 09/29/2015 LEANDRA BABCOCK MD Ot F10.21 ALCOHOL DEPENDENCE, IN REMISSION 09/29/2015 LEANDRA BABCOCK MD Ot N40.0 ENLARGED PROSTATE WITHOUT LOWER URINARY 09/29/2015 LEANDRA BABCOCK MD Ot 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 09/29/2015 LEANDRA BABCOCK MD Ot Z86.711 PERSONAL HISTORY OF PULMONARY EMBOLISM 09/29/2015 LEANDRA BABCOCK MD Ot Z86.718 PERSONAL HISTORY OF OTHER VENOUS THROMBO 10/06/2015 ANDRE LAZARO MD Ot C18.7 MALIGNANT NEOPLASM OF SIGMOID COLON 10/06/2015 ANDRE LAZARO MD M Ot Z01.818 ENCOUNTER FOR OTHER PREPROCEDURAL EXAMIN 10/09/2015 ANDRE LAZARO MD Ot C18.7 MALIGNANT NEOPLASM OF SIGMOID COLON 10/09/2015 ANDRE LAZARO MD M Ot Z01.818 ENCOUNTER FOR OTHER PREPROCEDURAL EXAMIN 10/11/2015 ANDRE LAZARO MD M Ot Z11.2 ENCOUNTER FOR SCREENING FOR OTHER BACTER 10/11/2015 ANDRE LAZARO MD M Ot Z85.038 PERSONAL HISTORY OF MALIGNANT NEOPLASM O 10/11/2015 ANDRE LAZARO MD M Ot Z86.718 PERSONAL HISTORY OF OTHER VENOUS THROMBO 10/17/2015 ANDRE LAZARO MD M Ot Z11.2 ENCOUNTER FOR SCREENING FOR OTHER BACTER 10/17/2015 ANDRE LAZARO MD M Ot Z85.038 PERSONAL HISTORY OF MALIGNANT NEOPLASM O 10/17/2015 ANDRE LAZARO MD M Ot Z86.718 PERSONAL HISTORY OF OTHER VENOUS THROMBO 10/31/2015 LEANDRA BABCOCK MD Ot C18.7 MALIGNANT NEOPLASM OF SIGMOID COLON 10/31/2015 LEANDRA BABCOCK MD Ot C78.7 SECONDARY MALIG NEOPLASM OF LIVER AND IN 10/31/2015 LEANDRA BABCOCK MD Ot F10.21 ALCOHOL DEPENDENCE, IN REMISSION 10/31/2015 LEANDRA BABCOCK MD Ot N40.0 ENLARGED PROSTATE WITHOUT LOWER URINARY 10/31/2015 LEANDRA BABCOCK MD Ot Z45.2 ENCOUNTER FOR ADJUSTMENT AND MANAGEMENT 10/31/2015 LEANDRA BABCOCK MD Ot 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 10/31/2015 LEANDRA BABCOCK MD Ot Z86.711 PERSONAL HISTORY OF PULMONARY EMBOLISM 10/31/2015 LEANDRA BABCOCK MD Ot Z86.718 PERSONAL HISTORY OF OTHER VENOUS THROMBO 12/15/2015 ANDRE LAZARO MD Ot Z01.818 ENCOUNTER FOR OTHER PREPROCEDURAL EXAMIN 12/15/2015 ANDRE LAZARO MD Ot Z85.038 PERSONAL HISTORY OF MALIGNANT NEOPLASM O 12/18/2015 ANDRE LAZARO MD Ot Z01.818 ENCOUNTER FOR OTHER PREPROCEDURAL EXAMIN 12/18/2015 ANDRE LAZARO MD Ot Z85.038 PERSONAL HISTORY OF MALIGNANT NEOPLASM O 12/18/2015 LEANDRA BABCOCK MD Ot C18.7 MALIGNANT NEOPLASM OF SIGMOID COLON 12/18/2015 LEANDRA BABCOCK MD Ot C78.7 SECONDARY MALIG NEOPLASM OF LIVER AND IN 12/18/2015 LEANDRA BABCOCK MD Ot F10.21 ALCOHOL DEPENDENCE, IN REMISSION 12/18/2015 LEANDRA BABCOCK MD Ot N40.0 ENLARGED PROSTATE WITHOUT LOWER URINARY 12/18/2015 LEANDRA BABCOCK MD Ot Z45.2 ENCOUNTER FOR ADJUSTMENT AND MANAGEMENT 12/18/2015 LEANDRA BABCOCK MD Ot 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 12/18/2015 LEANDRA BABCOCK MD Ot Z86.711 PERSONAL HISTORY OF PULMONARY EMBOLISM 12/18/2015 LEANDRA BABCOCK MD Ot Z86.718 PERSONAL HISTORY OF OTHER VENOUS THROMBO 01/04/2016 ANDRE LAZARO MD Ot Z01.818 ENCOUNTER FOR OTHER PREPROCEDURAL EXAMIN 01/04/2016 ANDRE LAZARO MD Ot Z85.038 PERSONAL HISTORY OF MALIGNANT NEOPLASM O 01/04/2016 ANDRE LAZARO MD Ot Z01.818 ENCOUNTER FOR OTHER PREPROCEDURAL EXAMIN 01/04/2016 ANDRE LAZARO MD Ot Z85.038 PERSONAL HISTORY OF MALIGNANT NEOPLASM O 01/08/2016 ANDRE LAZARO MD Ot Z0 8 ENCNTR FOR FOLLOW-UP EXAM AFTER TRTMT FO 01/08/2016 ANDRE LAZARO MD Ot Z85.038 PERSONAL HISTORY OF MALIGNANT NEOPLASM O 01/09/2016 ANDRE LAZARO MD Ot Z0 8 ENCNTR FOR FOLLOW-UP EXAM AFTER TRTMT FO 01/09/2016 ANDRE LAZARO MD Ot Z85.038 PERSONAL HISTORY OF MALIGNANT NEOPLASM O 01/16/2016 LEANDRA BABCOCK MD Ot C18.7 MALIGNANT NEOPLASM OF SIGMOID COLON 01/16/2016 LEANDRA BABCOCK MD Ot C78.7 SECONDARY MALIG NEOPLASM OF LIVER AND IN 01/16/2016 ANDRE LAZARO MD Ot Z01.818 ENCOUNTER FOR OTHER PREPROCEDURAL EXAMIN 01/16/2016 ANDRE LAZARO MD Ot Z85.038 PERSONAL HISTORY OF MALIGNANT NEOPLASM O 01/16/2016 LEANDRA BABCOCK MD, Ot C18.7 MALIGNANT NEOPLASM OF SIGMOID COLON 01/16/2016 LEANDRA BABCOCK MD, Ot C78.7 SECONDARY MALIG NEOPLASM OF LIVER AND IN 01/16/2016 LEANDRA BABCOCK MD, Ot F10.21 ALCOHOL DEPENDENCE, IN REMISSION 01/16/2016 LEANDRA BABCOCK MD, Ot N40.0 BENIGN PROSTATIC HYPERPLASIA WITHOUT LOW 01/16/2016 LEANDRA BABCOCK MD Ot Z45.2 ENCOUNTER FOR ADJUSTMENT AND MANAGEMENT 01/16/2016 LEANDRA BABCOCK MD, Ot 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 01/16/2016 LEANDRA BABCOCK MD, Ot Z86.711 PERSONAL HISTORY OF PULMONARY EMBOLISM 01/16/2016 LEANDRA BABCOCK MD, Ot Z86.718 PERSONAL HISTORY OF OTHER VENOUS THROMBO 01/16/2016 LEANDRA BABCOCK MD, Ot C18.7 MALIGNANT NEOPLASM OF SIGMOID COLON 01/16/2016 LEANDRA BABCOCK MD, Ot C78.7 SECONDARY MALIG NEOPLASM OF LIVER AND IN 01/16/2016 LEANDRA BABCOCK MD, Ot C18.7 MALIGNANT NEOPLASM OF SIGMOID COLON 01/16/2016 LEANDRA BABCOCK MD, Ot C78.7 SECONDARY MALIG NEOPLASM OF LIVER AND IN 01/17/2016 LEANDRA BABCOCK MD, Ot C18.7 MALIGNANT NEOPLASM OF SIGMOID COLON 01/17/2016 LEANDRA BABCOCK MD, Ot C78.7 SECONDARY MALIG NEOPLASM OF LIVER AND IN 01/17/2016 LEANDRA BABCOCK MD, Ot F10.21 ALCOHOL DEPENDENCE, IN REMISSION 01/17/2016 LEANDRA BABCOCK MD, Ot N40.0 BENIGN PROSTATIC HYPERPLASIA WITHOUT LOW 01/17/2016 LEANDRA BABCOCK MD Ot Z45.2 ENCOUNTER FOR ADJUSTMENT AND MANAGEMENT 01/17/2016 LEANDRA BABCOCK MD, Ot 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 01/17/2016 LEANDRA BABCOCK MD Ot Z86.711 PERSONAL HISTORY OF PULMONARY EMBOLISM 01/17/2016 LEANDRA BABCOCK MD, Ot Z86.718 PERSONAL HISTORY OF OTHER VENOUS THROMBO 01/17/2016 LEANDRA BABCOCK MD, Ot C18.7 MALIGNANT NEOPLASM OF SIGMOID COLON 01/17/2016 LEANDRA BABCOCK MD K Ot C78.7 SECONDARY MALIG NEOPLASM OF LIVER AND IN 01/17/2016 LEANDRA BABCOCK MD Ot C18.7 MALIGNANT NEOPLASM OF SIGMOID COLON 01/17/2016 LEANDRA BABCOCK MD Ot C78.7 SECONDARY MALIG NEOPLASM OF LIVER AND IN 01/17/2016 Ot 153.9 [place] G[place] T[place]LOR COLON NOS 01/17/2016 Ot 153.9 [place] G[place] COLON NOS 01/17/2016 Ot V72.63 PRE -PROCEDURAL LABORATORY EXAMINATION 01/17/2016 Ot V74.8 SCRE EN-BACTERIAL DIS NEC 01/17/2016 Ot 153.3 MAL TAYLOR SIGMOID COLON 01/17/2016 Ot 196.2 MAL TAYLOR LYMPH INTRA-ABD 01/17/2016 Ot 305.1 TOBA CHICK SEXER USE DISORDER 01/17/2016 Ot 600.00 HYP ERTROPHY (BENIGN) OF PROSTATE W/O URI 01/17/2016 Ot 153.9 [place] G[place] COLON NOS 01/17/2016 Ot V72.63 PRE -PROCEDURAL LABORATORY EXAMINATION 01/17/2016 Ot V74.8 SCRE EN-BACTERIAL DIS NEC 01/17/2016 Ot 153.9 [place] G[place] COLON NOS 01/17/2016 Ot 153.3 MAL TAYLOR SIGMOID COLON 01/17/2016 Ot 196.2 MAL TAYLOR LYMPH INTRA-ABD 01/17/2016 Ot V58.11 ENC OUNTER FOR ANTINEOPLASTIC CHEMOTHERAP 01/17/2016 Ot 153.9 [place] G[place] COLON NOS 01/17/2016 Ot V72.84 EXA M PRE- OPERATIVE NOS 01/17/2016 Ot V74.8 SCRE EN-BACTERIAL DIS NEC 01/17/2016 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 01 ABDOMINAL PAIN, RIGHT UPPER QUADRANT 01/17/2016 YESSICA JIMENEZ, MALVIN Giron Ot 793. 6 NOSP (ABN) FINDINGS ON RADIOLOGICAL OT 01/17/2016 LEANDRA BABCOCK MD Ot 719.40 JOINT PAIN-UNSPEC 01/17/2016 LEANDRA BABCOCK MD Ot 722.51 THORACIC DISC DEGEN 01/17/2016 LEANDRA BABCOCK MD Ot 733.90 BONE CARTILAGE DIS NOS 01/17/2016 LEANDRA BABCOCK MD Ot 789.02 ABDOMINAL PAIN, LEFT UPPER QUADRANT 01/17/2016 LEANDRA BABCOCK MD Ot V10.05 HX OF COLONIC MALIGNANCY 01/17/2016 LEANDRA BABCOCK MD Ot 153.9 MALIGNANT TAYLOR COLON NOS 01/17/2016 LEANDRA BABCOCK MD Ot 719.40 JOINT PAIN-UNSPEC 01/17/2016 LEANDRA BABCOCK MD Ot 724.5 BACKACHE NOS 01/17/2016 LEANDRA BABCOCK MD Ot 733.90 BONE CARTILAGE DIS NOS 01/17/2016 LEANDRA BABCOCK MD Ot 786.50 CHEST PAIN NOS 01/17/2016 LEANDRA BABCOCK MD Ot 789.02 ABDOMINAL PAIN, LEFT UPPER QUADRANT 01/17/2016 LEANDRA BABCOCK MD Ot 153.3 MAL TAYLOR SIGMOID COLON 01/17/2016 LEANDRA BABCOCK MD Ot 197.7 SECOND MALIG TAYLOR LIVER 01/17/2016 LEANDRA BABCOCK MD Ot 153.3 MAL TAYLOR SIGMOID COLON 01/17/2016 LEANDRA BABCOCK MD Ot C18.7 MALIGNANT NEOPLASM OF SIGMOID COLON 01/17/2016 LEANDRA BABCOCK MD Ot C18.7 MALIGNANT NEOPLASM OF SIGMOID COLON 01/17/2016 LEANDRA BABCOCK MD Ot C78.7 SECONDARY MALIG NEOPLASM OF LIVER AND IN 01/17/2016 LEANDRA BABCOCK MD Ot C18.7 MALIGNANT NEOPLASM OF SIGMOID COLON 01/17/2016 ELANDRA BABCOCK MD, Ot C78.7 SECONDARY MALIG NEOPLASM OF LIVER AND IN 01/17/2016 LEANDRA BABCOCK MD Ot F10.21 ALCOHOL DEPENDENCE, IN REMISSION 01/17/2016 LEANDRA BABCOCK MD Ot N40.0 BENIGN PROSTATIC HYPERPLASIA WITHOUT LOW 01/17/2016 LEANDRA BABCOCK MD Ot Z45.2 ENCOUNTER FOR ADJUSTMENT AND MANAGEMENT 01/17/2016 LEANDRA BABCOCK MD Ot Z79.01 INTERMEDIATE (CURRENT) USE OF ANTICOAGULANT 01/17/2016 LEANDRA BABCOCK MD Ot Z86.711 PERSONAL HISTORY OF PULMONARY EMBOLISM 01/17/2016 LEANDRA BABCOCK MD Ot Z86.718 PERSONAL HISTORY OF OTHER VENOUS THROMBO 01/17/2016 LEANDRA BABCOCK MD, Ot C18.7 MALIGNANT NEOPLASM OF SIGMOID COLON 01/17/2016 LEANDRA BABCOCK MD, Ot C78.7 SECONDARY MALIG NEOPLASM OF LIVER AND IN 02/07/2016 LEANDRA BABCOCK MD, Ot C18.7 MALIGNANT NEOPLASM OF SIGMOID COLON 02/07/2016 LEANDRA BABCOCK MD, Ot C78.7 SECONDARY MALIG NEOPLASM OF LIVER AND IN 03/07/2016 LEANDRA BABCOCK MD, Ot C18.7 MALIGNANT NEOPLASM OF SIGMOID COLON 03/07/2016 LEANDRA BABCOCK MD, Ot C78.7 SECONDARY MALIG NEOPLASM OF LIVER AND IN 03/07/2016 LEANDRA BABCOCK MD Ot F10.21 ALCOHOL DEPENDENCE, IN REMISSION 03/07/2016 LEANDRA BABCOCK MD Ot N40.0 BENIGN PROSTATIC HYPERPLASIA WITHOUT LOW 03/07/2016 LEANDRA BABCOCK MD Ot Z45.2 ENCOUNTER FOR ADJUSTMENT AND MANAGEMENT 03/07/2016 LEANDRA BABCOCK MD Ot Z79.01 INTERMEDIATE (CURRENT) USE OF ANTICOAGULANT 03/07/2016 LEANDRA BABCOCK MD Ot Z86.711 PERSONAL HISTORY OF PULMONARY EMBOLISM 03/07/2016 LEANDRA BABCOCK MD, Ot Z86.718 PERSONAL HISTORY OF OTHER VENOUS THROMBO 04/15/2016 LEANDRA BABCOCK MD, Ot C18.7 MALIGNANT NEOPLASM OF SIGMOID COLON 04/15/2016 LEANDRA BABCOCK MD, Ot C78.7 SECONDARY MALIG NEOPLASM OF LIVER AND IN 04/15/2016 LEANDRA BABCOCK MD, Ot F10.21 ALCOHOL DEPENDENCE, IN REMISSION 04/15/2016 LEANDRA BABCOCK MD, Ot N40.0 BENIGN PROSTATIC HYPERPLASIA WITHOUT LOW 04/15/2016 LEANDRA BABCOCK MD Ot Z45.2 ENCOUNTER FOR ADJUSTMENT AND MANAGEMENT 04/15/2016 LEANDRA BABCOCK MD Ot Z79.01 INTERMEDIATE (CURRENT) USE OF ANTICOAGULANT 04/15/2016 LEANDRA BABCOCK MD Ot Z86.711 PERSONAL HISTORY OF PULMONARY EMBOLISM 04/15/2016 LEANDRA BABCOCK MD, Ot Z86.718 PERSONAL HISTORY OF OTHER VENOUS THROMBO 04/16/2016 LEANDRA BABCOCK MD, Ot C18.7 MALIGNANT NEOPLASM OF SIGMOID COLON 04/16/2016 LEANDRA BABCOCK MD, Ot C78.7 SECONDARY MALIG NEOPLASM OF LIVER AND IN 04/16/2016 LEANDRA BABCOCK MD Ot F10.21 ALCOHOL DEPENDENCE, IN REMISSION 04/16/2016 LEANDRA BABCOCK MD Ot N40.0 BENIGN PROSTATIC HYPERPLASIA WITHOUT LOW 04/16/2016 LEANDRA BABCOCK MD Ot Z45.2 ENCOUNTER FOR ADJUSTMENT AND MANAGEMENT 04/16/2016 LEANDRA BABCOCK MD Ot 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 04/16/2016 LEANDRA BABCOCK MD Ot Z86.711 PERSONAL HISTORY OF PULMONARY EMBOLISM 04/16/2016 LEANDRA BABCOCK MD, Ot Z86.718 PERSONAL HISTORY OF OTHER VENOUS THROMBO 05/06/2016 LEANDRA BABCOCK MD Ot C18.7 MALIGNANT NEOPLASM OF SIGMOID COLON 05/06/2016 LEANDRA BABCOCK MD, Ot C78.7 SECONDARY MALIG NEOPLASM OF LIVER AND IN 05/06/2016 LEANDRA BABCOCK MD, Ot F10.21 ALCOHOL DEPENDENCE, IN REMISSION 05/06/2016 LEANDRA BABCOCK MD Ot N40.0 BENIGN PROSTATIC HYPERPLASIA WITHOUT LOW 05/06/2016 LEANDRA BABCOCK MD Ot Z45.2 ENCOUNTER FOR ADJUSTMENT AND MANAGEMENT 05/06/2016 LEANDRA BABCOCK MD, Ot 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 05/06/2016 LEANDRA BABCOCK MD Ot Z86.711 PERSONAL HISTORY OF PULMONARY EMBOLISM 05/06/2016 LEANDRA BABCOCK MD Ot Z86.718 PERSONAL HISTORY OF OTHER VENOUS THROMBO 05/09/2016 LEANDRA BABCOCK MD, Ot C18.7 MALIGNANT NEOPLASM OF SIGMOID COLON 05/09/2016 LEANDRA BABCOCK MD, Ot C78.7 SECONDARY MALIG NEOPLASM OF LIVER AND IN 05/09/2016 LEANDRA BABCOCK MD Ot F10.21 ALCOHOL DEPENDENCE, IN REMISSION 05/09/2016 LEANDRA BABCOCK MD Ot N40.0 BENIGN PROSTATIC HYPERPLASIA WITHOUT LOW 05/09/2016 LEANDRA BABCOCK MD Ot Z45.2 ENCOUNTER FOR ADJUSTMENT AND MANAGEMENT 05/09/2016 LEANDRA BABCOCK MD Ot 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 05/09/2016 LEANDRA BABCOCK MD Ot Z86.711 PERSONAL HISTORY OF PULMONARY EMBOLISM 05/09/2016 LEANDRA BABCOCK MD Ot Z86.718 PERSONAL HISTORY OF OTHER VENOUS THROMBO 07/01/2016 LEANDRA BABCOCK MD Ot C18.7 MALIGNANT NEOPLASM OF SIGMOID COLON 07/01/2016 LEANDRA BABCOCK MD, Ot C78.7 SECONDARY MALIG NEOPLASM OF LIVER AND IN 07/01/2016 LEANDRA BABCOCK MD Ot F10.21 ALCOHOL DEPENDENCE, IN REMISSION 07/01/2016 YOKO JIMENEZ LEANDRA Diggs Ot N40.0 BENIGN PROSTATIC HYPERPLASIA WITHOUT LOW 07/01/2016 YOKO IJMENEZ LEANDRA Diggs Ot 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9 [place] GNANT [place] COLON NOS 07/29/2016 Ot V72.63 PRE -PROCEDURAL LABORATORY EXAMINATION 07/29/2016 Ot V74.8 SCRE EN-BACTERIAL DIS NEC 07/29/2016 Ot 153.9 [place] GNANT [place] COLON NOS 07/29/2016 Ot 153.3 MAL TAYLOR SIGMOID COLON 07/29/2016 Ot 196.2 MAL TAYLOR LYMPH INTRA-ABD 07/29/2016 Ot V58.11 ENC OUNTER FOR ANTINEOPLASTIC CHEMOTHERAP 07/29/2016 Ot 153.9 [place] GNANT [place] COLON NOS 07/29/2016 Ot V72.84 EXA M PRE- OPERATIVE NOS 07/29/2016 Ot V74.8 SCRE EN-BACTERIAL DIS NEC 07/29/2016 JUSTIN 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 01 ABDOMINAL PAIN, RIGHT UPPER QUADRANT 07/29/2016 MALVIN JUAN MD Ot 793. 6 NOSP (ABN) FINDINGS ON RADIOLOGICAL OT 07/29/2016 LEANDRA BABCOCK MD Ot 719.40 JOINT PAIN-UNSPEC 07/29/2016 LEANDRA BABCOCK MD Ot 722.51 THORACIC DISC DEGEN 07/29/2016 LEANDRA BABCOCK MD Ot 733.90 BONE CARTILAGE DIS NOS 07/29/2016 LEANDRA BABCOCK MD Ot 789.02 ABDOMINAL PAIN, LEFT UPPER QUADRANT 07/29/2016 LEANDRA BABCOCK MD Ot V10.05 HX OF COLONIC MALIGNANCY 07/29/2016 LEANDRA BABCOCK MD Ot 153.9 MALIGNANT TAYLOR COLON NOS 07/29/2016 LEANDRA BABCOCK MD Ot 719.40 JOINT PAIN-UNSPEC 07/29/2016 LEANDRA BABCOCK MD Ot 724.5 BACKACHE NOS 07/29/2016 LEANDRA BABCOCK MD Ot 733.90 BONE CARTILAGE DIS NOS 07/29/2016 LEANDRA BABCOCK MD Ot 786.50 CHEST PAIN NOS 07/29/2016 LEANDRA BABCOCK MD Ot 789.02 ABDOMINAL PAIN, LEFT UPPER QUADRANT 07/29/2016 LENADRA BABCOCK MD Ot 153.3 MAL TAYLOR SIGMOID COLON 07/29/2016 LEANDRA BABCOCK MD Ot 197.7 SECOND MALIG TAYLOR LIVER 07/29/2016 LEANDRA BABCOCK MD Ot 153.3 MAL TAYLOR SIGMOID COLON 07/29/2016 LEANDRA BABCOCK MD Ot C18.7 MALIGNANT NEOPLASM OF SIGMOID COLON 07/29/2016 LEANDRA BABCOCK MD Ot C18.7 MALIGNANT NEOPLASM OF SIGMOID COLON 07/29/2016 LEANDRA BABCOCK MD Ot C78.7 SECONDARY MALIG NEOPLASM OF LIVER AND IN 07/29/2016 LEANDRA BABCOCK MD Ot C18.7 MALIGNANT NEOPLASM OF SIGMOID COLON 07/29/2016 LEANDRA BABCOCK MD Ot C78.7 SECONDARY MALIG NEOPLASM OF LIVER AND IN 07/29/2016 LEANDRA BABCOCK MD Ot C18.7 MALIGNANT NEOPLASM OF SIGMOID COLON 07/29/2016 LEANDRA BABCOCK MD Ot C78.7 SECONDARY MALIG NEOPLASM OF LIVER AND IN 07/29/2016 LEANDRA BABCOCK MD Ot F10.21 ALCOHOL DEPENDENCE, IN REMISSION 07/29/2016 LEANDRA BABCOCK MD Ot N40.0 BENIGN PROSTATIC HYPERPLASIA WITHOUT LOW 07/29/2016 YOKO JIMENEZ LEANDRA Dontae Ot 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 07/29/2016 YOKO JIMENEZ LEANDRA Dontae Ot Z86.711 PERSONAL HISTORY OF PULMONARY EMBOLISM 07/29/2016 YOKO JIMENEZ LEANDRA Dontae Ot Z86.718 PERSONAL HISTORY OF OTHER VENOUS THROMBO 07/29/2016 Ot 153.9 [place] G[place] COLON NOS 07/29/2016 Ot 153.9 [place] G[place] COLON NOS 07/29/2016 Ot V72.63 PRE -PROCEDURAL LABORATORY EXAMINATION 07/29/2016 Ot V74.8 SCRE EN-BACTERIAL DIS NEC 07/29/2016 Ot 153.3 MAL TAYLOR SIGMOID COLON 07/29/2016 Ot 196.2 MAL TAYLOR LYMPH INTRA-ABD 07/29/2016 Ot 305.1 TOBA CHICK SEXER USE DISORDER 07/29/2016 Ot 600.00 HYP ERTROPHY (BENIGN) OF PROSTATE W/O URI 07/29/2016 Ot 153.9 [place] GNANT [place] COLON NOS 07/29/2016 Ot V72.63 PRE -PROCEDURAL LABORATORY EXAMINATION 07/29/2016 Ot V74.8 SCRE EN-BACTERIAL DIS NEC 07/29/2016 Ot 153.9 [place] GNANT [place] COLON NOS 07/29/2016 Ot 153.3 MAL TAYLOR SIGMOID COLON 07/29/2016 Ot 196.2 MAL TAYLOR LYMPH INTRA-ABD 07/29/2016 Ot V58.11 ENC OUNTER FOR ANTINEOPLASTIC CHEMOTHERAP 07/29/2016 Ot 153.9 [place] G[place]NT [place] COLON NOS 07/29/2016 Ot V72.84 EXA M PRE- OPERATIVE NOS 07/29/2016 Ot V74.8 SCRE EN-BACTERIAL DIS NEC 07/29/2016 JUSTIN STAUFFER FAMILY SERVICE WORKER Ot 153.3 MAL TAYLOR SIGMOID COLON 07/29/2016 JUSTIN STAUFFER FAMILY SERVICE WORKER Ot 196.2 MAL TAYLOR LYMPH INTRA-ABD 07/29/2016 JUSTIN STAUFFER FAMILY SERVICE WORKER Ot V58.11 ENCOUNTER FOR ANTINEOPLASTIC CHEMOTHERAP 07/29/2016 Ot V72.84 EXA M PRE- OPERATIVE NOS 07/29/2016 TEJAS JIMENEZ, ANDRE Patton Ot 729.92 NONTRAUMATIC HEMATOMA OF SOFT TISSUE 07/29/2016 TEJAS JIMENEZ, ANDRE Patton Ot V72.84 EXAM PRE-OPERATIVE NOS 07/29/2016 YESSICA JIMENEZ, MALVIN R Ot 789. 01 ABDOMINAL PAIN, RIGHT UPPER QUADRANT 07/29/2016 MALVIN JUAN MD Ot 793. 6 NOSP (ABN) FINDINGS ON RADIOLOGICAL OT 07/29/2016 LEANDRA BABCOCK MD Ot 719.40 JOINT PAIN-UNSPEC 07/29/2016 LEANDRA BABCOCK MD Ot 722.51 THORACIC DISC DEGEN 07/29/2016 LEANDRA BABCOCK MD Ot 733.90 BONE CARTILAGE DIS NOS 07/29/2016 LEANDRA BABCOCK MD Ot 789.02 ABDOMINAL PAIN, LEFT UPPER QUADRANT 07/29/2016 LEANDRA BABCOCK MD Ot V10.05 HX OF COLONIC MALIGNANCY 07/29/2016 LEANDRA BABCOCK MD Ot 153.9 MALIGNANT TAYLOR COLON NOS 07/29/2016 LEANDRA BABCOCK MD Ot 719.40 JOINT PAIN-UNSPEC 07/29/2016 LEANDRA BABCOCK MD Ot 724.5 BACKACHE NOS 07/29/2016 LEANDRA BABCOCK MD Ot 733.90 BONE CARTILAGE DIS NOS 07/29/2016 LEANDRA BABCOCK MD Ot 786.50 CHEST PAIN NOS 07/29/2016 LEANDRA BABCOCK MD Ot 789.02 ABDOMINAL PAIN, LEFT UPPER QUADRANT 07/29/2016 LEANDRA BABCOCK MD Ot 153.3 MAL TAYLOR SIGMOID COLON 07/29/2016 LEANDRA BABCOCK MD Ot 197.7 SECOND MALIG TAYLOR LIVER 07/29/2016 LEANDRA BABCOCK MD Ot 153.3 MAL TAYLOR SIGMOID COLON 07/29/2016 LEANDRA BABCOCK MD Ot C18.7 MALIGNANT NEOPLASM OF SIGMOID COLON 07/29/2016 LEANDRA BABCOCK MD Ot C18.7 MALIGNANT NEOPLASM OF SIGMOID COLON 07/29/2016 LEANDRA BABCOCK MD Ot C78.7 SECONDARY MALIG NEOPLASM OF LIVER AND IN 07/29/2016 LEANDRA BABCOCK MD Ot C18.7 MALIGNANT NEOPLASM OF SIGMOID COLON 07/29/2016 LEANDRA BABCOCK MD Ot C78.7 SECONDARY MALIG NEOPLASM OF LIVER AND IN 07/29/2016 LEANDRA BABCOCK MD Ot C18.7 MALIGNANT NEOPLASM OF SIGMOID COLON 07/29/2016 LEANDRA BABCOCK MD Ot C78.7 SECONDARY MALIG NEOPLASM OF LIVER AND IN 07/29/2016 LEANDRA BABCOCK MD Ot F10.21 ALCOHOL DEPENDENCE, IN REMISSION 07/29/2016 LEANDRA BABCOCK MD Ot N40.0 BENIGN PROSTATIC HYPERPLASIA WITHOUT LOW 07/29/2016 LEANDRA BABCOCK MD Ot 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 07/29/2016 LEANDRA BABCOCK MD Ot Z86.711 PERSONAL HISTORY OF PULMONARY EMBOLISM 07/29/2016 LEANDRA BABCOCK MD, Ot Z86.718 PERSONAL HISTORY OF OTHER VENOUS THROMBO 07/29/2016 LEANDRA BABCOCK MD Ot C18.7 MALIGNANT NEOPLASM OF SIGMOID COLON 07/29/2016 LEANDRA BABCOCK MD, Ot C78.7 SECONDARY MALIG NEOPLASM OF LIVER AND IN 08/05/2016 LEANDRA BABCOCK MD, Ot C18.9 MALIGNANT NEOPLASM OF COLON, UNSPECIFIED 08/05/2016 LEANDRA BABCOCK MD, Ot C78.7 SECONDARY MALIG NEOPLASM OF LIVER AND IN 08/06/2016 LEANDRA BABCOCK MD, Ot C18.7 MALIGNANT NEOPLASM OF SIGMOID COLON 08/06/2016 LEANDRA BABCOCK MD, Ot C78.7 SECONDARY MALIG NEOPLASM OF LIVER AND IN 08/06/2016 LEANDRA BABCOCK MD Ot F10.21 ALCOHOL DEPENDENCE, IN REMISSION 08/06/2016 LEANDRA BABCOCK MD Ot N40.0 BENIGN PROSTATIC HYPERPLASIA WITHOUT LOW 08/06/2016 LEANDRA BABCOCK MD Ot 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 08/06/2016 LEANDRA BABCOCK MD, Ot Z86.711 PERSONAL HISTORY OF PULMONARY EMBOLISM 08/06/2016 LEANDRA BABCOCK MD, Ot Z86.718 PERSONAL HISTORY OF OTHER VENOUS THROMBO 08/08/2016 LEANDRA BABCOCK MD, Ot C18.7 MALIGNANT NEOPLASM OF SIGMOID COLON 08/08/2016 LEANDRA BABCOCK MD, Ot C78.7 SECONDARY MALIG NEOPLASM OF LIVER AND IN 08/08/2016 LEANDRA BABCOCK MD Ot F10.21 ALCOHOL DEPENDENCE, IN REMISSION 08/08/2016 LEANDRA BABCOCK MD Ot N40.0 BENIGN PROSTATIC HYPERPLASIA WITHOUT LOW 08/08/2016 LEANDRA BABCOCK MD Ot 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 08/08/2016 LEANDRA BABCOCK MD Ot Z86.711 PERSONAL HISTORY OF PULMONARY EMBOLISM 08/08/2016 LEANDRA BABCOCK MD Ot Z86.718 PERSONAL HISTORY OF OTHER VENOUS THROMBO 08/09/2016 LEANDRA BABCOCK MD Ot C18.9 MALIGNANT NEOPLASM OF COLON, UNSPECIFIED 08/09/2016 LEANDRA BABCOCK MD, Ot C78.7 SECONDARY MALIG NEOPLASM OF LIVER AND IN 08/15/2016 LEANDRA BABCOCK MD, Ot C18.9 MALIGNANT NEOPLASM OF COLON, UNSPECIFIED 08/15/2016 LEANDRA BABCOCK MD, Ot C78.7 SECONDARY MALIG NEOPLASM OF LIVER AND IN 08/16/2016 LEANDRA BABCOCK MD, Ot C18.7 MALIGNANT NEOPLASM OF SIGMOID COLON 08/16/2016 LEANDRA BABCOCK MD, Ot C78.7 SECONDARY MALIG NEOPLASM OF LIVER AND IN 08/16/2016 LEANDRA BABCOCK MD, Ot F10.21 ALCOHOL DEPENDENCE, IN REMISSION 08/16/2016 LEANDRA BABCOCK MD, Ot N40.0 BENIGN PROSTATIC HYPERPLASIA WITHOUT LOW 08/16/2016 LEANDRA BABCOCK MD, Ot 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 08/16/2016 LEANDRA BABCOCK MD, Ot Z86.711 PERSONAL HISTORY OF PULMONARY EMBOLISM 08/16/2016 LEANDRA BABCOCK MD, Ot Z86.718 PERSONAL HISTORY OF OTHER VENOUS THROMBO 08/22/2016 LEANDRA BABCOCK MD, Ot C18.9 MALIGNANT NEOPLASM OF COLON, UNSPECIFIED 08/22/2016 LEANDRA BABCOCK MD, Ot C78.7 SECONDARY MALIG NEOPLASM OF LIVER AND IN 08/26/2016 LEANDRA BABCOCK MD, Ot C18.7 MALIGNANT NEOPLASM OF SIGMOID COLON 08/26/2016 LEANDRA BABCOCK MD, Ot C78.7 SECONDARY MALIG NEOPLASM OF LIVER AND IN 08/29/2016 LEANDRA BABCOCK MD, Ot C18.9 MALIGNANT NEOPLASM OF COLON, UNSPECIFIED 08/29/2016 LEANDRA BABCOCK MD, Ot C78.7 SECONDARY MALIG NEOPLASM OF LIVER AND IN 09/11/2016 LEANDRA BABCOCK MD, Ot C18.9 MALIGNANT NEOPLASM OF COLON, UNSPECIFIED 09/11/2016 LEANDRA BABCOCK MD, Ot C78.7 SECONDARY MALIG NEOPLASM OF LIVER AND IN 09/20/2016 Ot 153.9 [place] G[place]NT TAYLOR COLON NOS 09/20/2016 Ot 153.9 [place] G[place] TAY[place]OR COLON NOS 09/20/2016 Ot V72.63 PRE -PROCEDURAL LABORATORY EXAMINATION 09/20/2016 Ot V74.8 SCRE EN-BACTERIAL DIS NEC 09/20/2016 Ot 153.3 MAL TAYLOR SIGMOID COLON 09/20/2016 Ot 196.2 MAL TAYLOR LYMPH INTRA-ABD 09/20/2016 Ot 305.1 TOBA CHICK SEXER USE DISORDER 09/20/2016 Ot 600.00 HYP ERTROPHY (BENIGN) OF PROSTATE W/O URI 09/20/2016 Ot 153.9 [place] G[place]NT TAY[place]OR COLON NOS 09/20/2016 Ot V72.63 PRE -PROCEDURAL LABORATORY EXAMINATION 09/20/2016 Ot V74.8 SCRE EN-BACTERIAL DIS NEC 09/20/2016 Ot 153.9 [place] GNANT TAY[place]OR COLON NOS 09/20/2016 Ot 153.3 MAL TAYLOR SIGMOID COLON 09/20/2016 Ot 196.2 MAL TAYLOR LYMPH INTRA-ABD 09/20/2016 Ot V58.11 ENC OUNTER FOR ANTINEOPLASTIC CHEMOTHERAP 09/20/2016 Ot 153.9 [place] GNANT TAYLOR COLON NOS 09/20/2016 Ot V72.84 EXA M PRE- OPERATIVE NOS 09/20/2016 Ot V74.8 SCRE EN-BACTERIAL DIS NEC 09/20/2016 STAUFFERJUSTIN Sanchez S FAMILY SERVICE WORKER Ot 153.3 MAL TAYLOR SIGMOID COLON 09/20/2016 STAUFFERYOUSUFAH S FAMILY SERVICE WORKER Ot 196.2 MAL TAYLOR LYMPH INTRA-ABD 09/20/2016 STAUFFERYOUSUFAH S FAMILY SERVICE WORKER Ot V58.11 ENCOUNTER FOR ANTINEOPLASTIC CHEMOTHERAP 09/20/2016 Ot V72.84 EXA M PRE- OPERATIVE NOS 09/20/2016 TEJAS JIMENEZ, ANDER Patton Ot 729.92 NONTRAUMATIC HEMATOMA OF SOFT TISSUE 09/20/2016 TEJAS JIMENEZ, ANDRE Patton Ot V72.84 EXAM PRE-OPERATIVE NOS 09/20/2016 YESSICA JIMENEZ, MALVIN Giron Ot 789. 01 ABDOMINAL PAIN, RIGHT UPPER QUADRANT 09/20/2016 YESSICA JIMENEZ, MALVIN Giron Ot 793. 6 NOSP (ABN) FINDINGS ON RADIOLOGICAL OT 09/20/2016 YOKO JIMENEZ, LEANDRA Diggs Ot 719.40 JOINT PAIN-UNSPEC 09/20/2016 LEANDRA BABCOCK MD Ot 722.51 THORACIC DISC DEGEN 09/20/2016 LEANDRA BABCOCK MD Ot 733.90 BONE CARTILAGE DIS NOS 09/20/2016 LEANDRA BABCOCK MD Ot 789.02 ABDOMINAL PAIN, LEFT UPPER QUADRANT 09/20/2016 LEANDRA BABCOCK MD Ot V10.05 HX OF COLONIC MALIGNANCY 09/20/2016 LEANDRA BABCOCK MD Ot 153.9 MALIGNANT TAYLOR COLON NOS 09/20/2016 LEANDRA BABCOCK MD Ot 719.40 JOINT PAIN-UNSPEC 09/20/2016 LEANDRA BABCOCK MD Ot 724.5 BACKACHE NOS 09/20/2016 LEANDRA BABCOCK MD Ot 733.90 BONE CARTILAGE DIS NOS 09/20/2016 LEANDRA BABCOCK MD Ot 786.50 CHEST PAIN NOS 09/20/2016 LEANDRA BABCOCK MD Ot 789.02 ABDOMINAL PAIN, LEFT UPPER QUADRANT 09/20/2016 LEANDRA BABCOCK MD Ot 153.3 MAL TAYLOR SIGMOID COLON 09/20/2016 LEANDRA BABCOCK MD Ot 197.7 SECOND MALIG TAYLOR LIVER 09/20/2016 LEANDRA BABCOCK MD, Ot 153.3 MAL TAYLOR SIGMOID COLON 09/20/2016 LEANDRA BABCOCK MD Ot C18.7 MALIGNANT NEOPLASM OF SIGMOID COLON 09/20/2016 LEANDRA BABCOCK MD Ot C18.7 MALIGNANT NEOPLASM OF SIGMOID COLON 09/20/2016 LEANDRA BABCOCK MD, Ot C78.7 SECONDARY MALIG NEOPLASM OF LIVER AND IN 09/20/2016 LEANDRA BABCOCK MD, Ot C18.9 MALIGNANT NEOPLASM OF COLON, UNSPECIFIED 09/20/2016 LEANDRA BABCOCK MD, Ot C78.7 SECONDARY MALIG NEOPLASM OF LIVER AND IN 09/20/2016 LEANDRA BABCOCK MD, Ot C18.7 MALIGNANT NEOPLASM OF SIGMOID COLON 09/20/2016 LEANDRA BABCOCK MD, Ot C78.7 SECONDARY MALIG NEOPLASM OF LIVER AND IN 09/20/2016 LEANDRA BABCOCK MD Ot F10.21 ALCOHOL DEPENDENCE, IN REMISSION 09/20/2016 LEANDRA BABCOCK MD, Ot N40.0 BENIGN PROSTATIC HYPERPLASIA WITHOUT LOW 09/20/2016 LEANDRA BABCOCK MD, Ot Z79.01 INTERMEDIATE (CURRENT) USE OF ANTICOAGULANT 09/20/2016 LEANDRA BABCOCK MD Ot Z86.711 PERSONAL HISTORY OF PULMONARY EMBOLISM 09/20/2016 LEANDRA BABCOCK MD, Ot Z86.718 PERSONAL HISTORY OF OTHER VENOUS THROMBO 11/13/2016 LEANDRA BABCOCK MD Ot C18.7 MALIGNANT NEOPLASM OF SIGMOID COLON 11/13/2016 LEANDRA BABCOCK MD, Ot C78.7 SECONDARY MALIG NEOPLASM OF LIVER AND IN 11/13/2016 LEANDRA BABCOCK MD Ot F10.21 ALCOHOL DEPENDENCE, IN REMISSION 11/13/2016 LEANDRA BABCOCK MD, Ot N40.0 BENIGN PROSTATIC HYPERPLASIA WITHOUT LOW 11/13/2016 LEANDRA BABCOCK MD Ot 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 11/13/2016 LEANDRA BABCOCK MD Ot Z86.711 PERSONAL HISTORY OF PULMONARY EMBOLISM 11/13/2016 LEANDRA BABCOCK MD, Ot Z86.718 PERSONAL HISTORY OF OTHER VENOUS THROMBO 11/19/2016 LEANDRA BABCOCK MD Ot C18.7 MALIGNANT NEOPLASM OF SIGMOID COLON 11/19/2016 LEANDRA BABCOCK MD, Ot C78.7 SECONDARY MALIG NEOPLASM OF LIVER AND IN 11/19/2016 LEANDRA BABCOCK MD, Ot F10.21 ALCOHOL DEPENDENCE, IN REMISSION 11/19/2016 LEANDRA BABCOCK MD, Ot N40.0 BENIGN PROSTATIC HYPERPLASIA WITHOUT LOW 11/19/2016 LEANDRA BABCOCK MD, Ot Z79.01 INTERMEDIATE (CURRENT) USE OF ANTICOAGULANT 11/19/2016 LEANDRA BABCOCK MD, Ot Z86.711 PERSONAL HISTORY OF PULMONARY EMBOLISM 11/19/2016 LEANDRA BABCOCK MD, Ot Z86.718 PERSONAL HISTORY OF OTHER VENOUS THROMBO 11/21/2016 LEANDRA BABCOCK MD, Ot C18.9 MALIGNANT NEOPLASM OF COLON, UNSPECIFIED 11/21/2016 LEANDRA BABCOCK MD, Ot C78.7 SECONDARY MALIG NEOPLASM OF LIVER AND IN 12/11/2016 TERESA LUNDBERG MD, Ot C78. 7 SECONDARY MALIG NEOPLASM OF LIVER AND IN 12/11/2016 TERESA LUNDBERG MD, Ot F10. 21 ALCOHOL DEPENDENCE, IN REMISSION 12/11/2016 TERESA LUNDBERG MD, Ot M19. 91 PRIMARY OSTEOARTHRITIS, UNSPECIFIED SITE 12/11/2016 TERESA LUNDBERG MD, Ot M51. 26 OTHER INTERVERTEBRAL DISC DISPLACEMENT, 12/11/2016 TERESA LUNDBERG MD, Ot N40. 0 BENIGN PROSTATIC HYPERPLASIA WITHOUT LOW 12/11/2016 TERESA LUNDBERG MD, Ot Z79. 01 BUFFING AND POLISHING WHEEL REPAIRER (CURRENT) USE OF ANTICOAGULANT 12/11/2016 TERESA LUNDBERG MD, Ot Z79.899 OTHER BUFFING AND POLISHING WHEEL REPAIRER (CURRENT) DRUG THERAPY 12/11/2016 TERESA LUNDBERG MD, Ot Z85.038 PERSONAL HISTORY OF MALIGNANT NEOPLASM O 12/11/2016 TERESA LUNDBERG MD, Ot Z86.711 PERSONAL HISTORY OF PULMONARY EMBOLISM 12/11/2016 TERESA LUNDBERG MD, Ot Z86.718 PERSONAL HISTORY OF OTHER VENOUS THROMBO 03/10/2017 TERESA LUNDBERG MD, Ot C78. 7 SECONDARY MALIG NEOPLASM OF LIVER AND IN 03/10/2017 TERESA LUNDBERG MD, Ot F10. 21 ALCOHOL DEPENDENCE, IN REMISSION 03/10/2017 TERESA LUNDBERG MD, Ot M19. 91 PRIMARY OSTEOARTHRITIS, UNSPECIFIED SITE 03/10/2017 TERESA LUNDBERG MD Ot M51. 26 OTHER INTERVERTEBRAL DISC DISPLACEMENT, 03/10/2017 TERESA LUNDBERG MD Ot N40. 0 BENIGN PROSTATIC HYPERPLASIA WITHOUT LOW 03/10/2017 TERESA LUNDBERG MD Ot Z79. 01 BUFFING AND POLISHING WHEEL REPAIRER (CURRENT) USE OF ANTICOAGULANT 03/10/2017 TERESA LUNDBERG MD Ot Z79.899 OTHER INTERMEDIATE (CURRENT) DRUG THERAPY 03/10/2017 TERESA LUNDBERG MD Ot Z85.038 PERSONAL HISTORY OF MALIGNANT NEOPLASM O 03/10/2017 TERESA LUNDBERG MD Ot Z86.711 PERSONAL HISTORY OF PULMONARY EMBOLISM 03/10/2017 TERESA LUNDBERG MD, Ot Z86.718 PERSONAL HISTORY OF OTHER VENOUS THROMBO 03/16/2017 TERESA LUNDBERG MD, Ot C78. 7 SECONDARY MALIG NEOPLASM OF LIVER AND IN 03/16/2017 TERESA LUNDBERG MD, Ot F10. 21 ALCOHOL DEPENDENCE, IN REMISSION 03/16/2017 TERESA LUNDBERG MD, Ot M19. 91 PRIMARY OSTEOARTHRITIS, UNSPECIFIED SITE 03/16/2017 TERESA LUNDBERG MD Ot M51. 26 OTHER INTERVERTEBRAL DISC DISPLACEMENT, 03/16/2017 TERESA LUNDBERG MD, Ot N40. 0 BENIGN PROSTATIC HYPERPLASIA WITHOUT LOW 03/16/2017 TERESA LUNDBERG MD, Ot Z79. 01 INTERMEDIATE (CURRENT) USE OF ANTICOAGULANT 03/16/2017 TERESA LUNDBERG MD Ot Z79.899 OTHER BUFFING AND POLISHING WHEEL REPAIRER (CURRENT) DRUG THERAPY 03/16/2017 TERESA LUNDBERG MD Ot Z85.038 PERSONAL HISTORY OF MALIGNANT NEOPLASM O 03/16/2017 TERESA LUNDBERG MD Ot Z86.711 PERSONAL HISTORY OF PULMONARY EMBOLISM 03/16/2017 TERESA LUNDBERG MD Ot Z86.718 PERSONAL HISTORY OF OTHER VENOUS THROMBO 03/20/2017 VALERIE MEDELLIN MD, Ot C78.7 SECONDARY MALIG NEOPLASM OF LIVER AND IN 03/20/2017 VALERIE MEDELLIN MD Ot F10.21 ALCOHOL DEPENDENCE, IN REMISSION 03/20/2017 VALERIE MEDELLIN MD Ot M19.91 PRIMARY OSTEOARTHRITIS, UNSPECIFIED SITE 03/20/2017 VALERIE MEDELLIN MD Ot M51.26 OTHER INTERVERTEBRAL DISC DISPLACEMENT, 03/20/2017 VALERIE MEDELLIN MD Ot N40.0 BENIGN PROSTATIC HYPERPLASIA WITHOUT LOW 03/20/2017 VALERIE MEDELLIN MD Ot 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 03/20/2017 VALERIE MEDELLIN MD Ot Z79.899 OTHER INTERMEDIATE (CURRENT) DRUG THERAPY 03/20/2017 VALERIE MEDELLIN MD Ot Z85.038 PERSONAL HISTORY OF MALIGNANT NEOPLASM O 03/20/2017 VALERIE MEDELLIN MD Ot Z86.711 PERSONAL HISTORY OF PULMONARY EMBOLISM 03/20/2017 VALERIE MEDELLIN MD Ot Z86.718 PERSONAL HISTORY OF OTHER VENOUS THROMBO 03/27/2017 TERESA LUNDBERG MD Ot C18. 7 MALIGNANT NEOPLASM OF SIGMOID COLON 03/27/2017 ETRESA LUNDBERG MD Ot C78. 7 SECONDARY MALIG NEOPLASM OF LIVER AND IN 03/27/2017 TERESA LUNDBERG MD Ot Z90. 49 ACQUIRED ABSENCE OF OTHER SPECIFIED PART 05/01/2017 VALERIE MEDELLIN MD Ot C78.7 SECONDARY MALIG NEOPLASM OF LIVER AND IN 05/01/2017 VALERIE MEDELLIN MD Ot F10.21 ALCOHOL DEPENDENCE, IN REMISSION 05/01/2017 VALERIE MEDELLIN MD Ot M19.91 PRIMARY OSTEOARTHRITIS, UNSPECIFIED SITE 05/01/2017 VALERIE MEDELLIN MD Ot M51.26 OTHER INTERVERTEBRAL DISC DISPLACEMENT, 05/01/2017 VALERIE MEDELLIN MD Ot N40.0 BENIGN PROSTATIC HYPERPLASIA WITHOUT LOW 05/01/2017 VALERIE MEDELLIN MD Ot Z79.01 INTERMEDIATE (CURRENT) USE OF ANTICOAGULANT 05/01/2017 VALERIE MEDELLIN MD Ot Z79.899 OTHER BUFFING AND POLISHING WHEEL REPAIRER (CURRENT) DRUG THERAPY 05/01/2017 VALERIE MEDELLIN MD Ot Z85.038 PERSONAL HISTORY OF MALIGNANT NEOPLASM O 05/01/2017 VALERIE MEDELLIN MD Ot Z86.711 PERSONAL HISTORY OF PULMONARY EMBOLISM 05/01/2017 VALERIE MEDELLIN MD Ot Z86.718 PERSONAL HISTORY OF OTHER VENOUS THROMBO 06/17/2017 VALERIE MEDELLIN MD Ot C78.7 SECONDARY MALIG NEOPLASM OF LIVER AND IN 06/17/2017 VALERIE MEDELLIN MD Ot F10.21 ALCOHOL DEPENDENCE, IN REMISSION 06/17/2017 VALERIE MEDELLIN MD Ot M19.91 PRIMARY OSTEOARTHRITIS, UNSPECIFIED SITE 06/17/2017 VALERIE MEDELLIN MD Ot M51.26 OTHER INTERVERTEBRAL DISC DISPLACEMENT, 06/17/2017 VALERIE MEDELLIN MD Ot N40.0 BENIGN PROSTATIC HYPERPLASIA WITHOUT LOW 06/17/2017 VALERIE MEDELLIN MD Ot Z79.01 INTERMEDIATE (CURRENT) USE OF ANTICOAGULANT 06/17/2017 VALERIE MEDELLIN MD Ot Z79.899 OTHER BUFFING AND POLISHING WHEEL REPAIRER (CURRENT) DRUG THERAPY 06/17/2017 VALERIE MEDELLIN MD Ot Z85.038 PERSONAL HISTORY OF MALIGNANT NEOPLASM O 06/17/2017 VALERIE MEDELLIN MD Ot Z86.711 PERSONAL HISTORY OF PULMONARY EMBOLISM 06/17/2017 VALERIE MEDELLIN MD Ot Z86.718 PERSONAL HISTORY OF OTHER VENOUS THROMBO 06/18/2017 VALERIE MEDELLIN MD Ot C78.7 SECONDARY MALIG NEOPLASM OF LIVER AND IN 06/18/2017 VALERIE MEDELLIN MD Ot F10.21 ALCOHOL DEPENDENCE, IN REMISSION 06/18/2017 VALERIE MEDELLIN MD Ot M19.91 PRIMARY OSTEOARTHRITIS, UNSPECIFIED SITE 06/18/2017 VALERIE MEDELLIN MD Ot M51.26 OTHER INTERVERTEBRAL DISC DISPLACEMENT, 06/18/2017 VALERIE MEDELLIN MD Ot N40.0 BENIGN PROSTATIC HYPERPLASIA WITHOUT LOW 06/18/2017 VALERIE MEDELLIN MD Ot 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 06/18/2017 VALERIE MEDELLIN MD Ot Z79.899 OTHER BUFFING AND POLISHING WHEEL REPAIRER (CURRENT) DRUG THERAPY 06/18/2017 VALERIE MEDELLIN MD Ot Z85.038 PERSONAL HISTORY OF MALIGNANT NEOPLASM O 06/18/2017 VALERIE MEDELLIN MD Ot Z86.711 PERSONAL HISTORY OF PULMONARY EMBOLISM 06/18/2017 VALERIE MEDELLIN MD Ot Z86.718 PERSONAL HISTORY OF OTHER VENOUS THROMBO 06/23/2017 VALERIE MEDELLIN MD Ot C78.7 SECONDARY MALIG NEOPLASM OF LIVER AND IN 06/23/2017 VALERIE MEDELLIN MD Ot F10.21 ALCOHOL DEPENDENCE, IN REMISSION 06/23/2017 VALERIE MEDELLIN MD Ot M19.91 PRIMARY OSTEOARTHRITIS, UNSPECIFIED SITE 06/23/2017 VALERIE MEDELLIN MD Ot M51.26 OTHER INTERVERTEBRAL DISC DISPLACEMENT, 06/23/2017 VALERIE MEDELLIN MD Ot N40.0 BENIGN PROSTATIC HYPERPLASIA WITHOUT LOW 06/23/2017 VALERIE MEDELLIN MD Ot Z79.01 INTERMEDIATE (CURRENT) USE OF ANTICOAGULANT 06/23/2017 VALERIE MEDELLIN MD Ot Z79.899 OTHER INTERMEDIATE (CURRENT) DRUG THERAPY 06/23/2017 VALERIE MEDELLIN MD Ot Z85.038 PERSONAL HISTORY OF MALIGNANT NEOPLASM O 06/23/2017 VALERIE MEDELLIN MD, Ot Z86.711 PERSONAL HISTORY OF PULMONARY EMBOLISM 06/23/2017 VALERIE MEDELLIN MD, Ot Z86.718 PERSONAL HISTORY OF OTHER VENOUS THROMBO 09/11/2017 LEANDRA BABCOCK MD Ot C18.7 MALIGNANT NEOPLASM OF SIGMOID COLON 09/11/2017 LEANDRA BABCOCK MD, Ot C78.7 SECONDARY MALIG NEOPLASM OF LIVER AND IN 09/11/2017 LEANDRA BABCOCK MD, Ot C18.7 MALIGNANT NEOPLASM OF SIGMOID COLON 09/11/2017 LEANDRA BABCOCK MD, Ot C78.7 SECONDARY MALIG NEOPLASM OF LIVER AND IN 09/11/2017 ANDRE LAZARO MD Ot Z01.818 ENCOUNTER FOR OTHER PREPROCEDURAL EXAMIN 09/11/2017 ANDRE LAZARO MD, Ot Z85.038 PERSONAL HISTORY OF MALIGNANT NEOPLASM O 09/11/2017 LEANDRA BABCOCK MD Ot C18.9 MALIGNANT NEOPLASM OF COLON, UNSPECIFIED 09/11/2017 LEANDRA BABCOCK MD, Ot C78.7 SECONDARY MALIG NEOPLASM OF LIVER AND IN 09/11/2017 LEANDRA BABCOCK MD, Ot C18.9 MALIGNANT NEOPLASM OF COLON, UNSPECIFIED 09/11/2017 LEANDRA BABCOCK MD, Ot C78.7 SECONDARY MALIG NEOPLASM OF LIVER AND IN 09/11/2017 TERESA LUNDBERG MD, Ot C18. 7 MALIGNANT NEOPLASM OF SIGMOID COLON 09/11/2017 TERESA LUNDBERG MD, Ot C78. 7 SECONDARY MALIG NEOPLASM OF LIVER AND IN 09/11/2017 TERESA LUNDBERG MD Ot Z90. 49 ACQUIRED ABSENCE OF OTHER SPECIFIED PART 09/11/2017 VALERIE MEDELLIN MD, Ot C78.7 SECONDARY MALIG NEOPLASM OF LIVER AND IN 09/11/2017 VALERIE MEDELLIN MD Ot F10.21 ALCOHOL DEPENDENCE, IN REMISSION 09/11/2017 VALERIE MEDELLIN MD, Ot M19.91 PRIMARY OSTEOARTHRITIS, UNSPECIFIED SITE 09/11/2017 VALERIE MEDELLIN MD Ot M51.26 OTHER INTERVERTEBRAL DISC DISPLACEMENT, 09/11/2017 VALERIE MEDELLIN MD, Ot N40.0 BENIGN PROSTATIC HYPERPLASIA WITHOUT LOW 09/11/2017 VALERIE MEDELLIN MD Ot 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 09/11/2017 VALERIE MEDELLIN MD, Ot Z79.899 OTHER INTERMEDIATE (CURRENT) DRUG THERAPY 09/11/2017 VALERIE MEDELLIN MD, Ot Z85.038 PERSONAL HISTORY OF MALIGNANT NEOPLASM O 09/11/2017 VALERIE MEDELLIN MD Ot Z86.711 PERSONAL HISTORY OF PULMONARY EMBOLISM 09/11/2017 VALERIE MEDELLIN MD Ot Z86.718 PERSONAL HISTORY OF OTHER VENOUS THROMBO 09/11/2017 LEANDRA BABCOCK MD Ot C18.7 MALIGNANT NEOPLASM OF SIGMOID COLON 09/11/2017 LEANDRA BABCOCK MD, Ot C78.7 SECONDARY MALIG NEOPLASM OF LIVER AND IN 09/11/2017 LEANDRA BABCOCK MD, Ot C18.7 MALIGNANT NEOPLASM OF SIGMOID COLON 09/11/2017 LEANDRA BABCOCK MD, Ot C78.7 SECONDARY MALIG NEOPLASM OF LIVER AND IN 09/11/2017 ANDRE LAZARO MD Ot Z01.818 ENCOUNTER FOR OTHER PREPROCEDURAL EXAMIN 09/11/2017 ANDRE LAZARO MD, Ot Z85.038 PERSONAL HISTORY OF MALIGNANT NEOPLASM O 09/11/2017 LEANDRA BABCOCK MD Ot C18.9 MALIGNANT NEOPLASM OF COLON, UNSPECIFIED 09/11/2017 LEANDRA BABCOCK MD Ot C78.7 SECONDARY MALIG NEOPLASM OF LIVER AND IN 09/11/2017 LEANDRA BABCOCK MD, Ot C18.9 MALIGNANT NEOPLASM OF COLON, UNSPECIFIED 09/11/2017 LEANDRA BABCOCK MD, Ot C78.7 SECONDARY MALIG NEOPLASM OF LIVER AND IN 09/11/2017 TERESA LUNDBERG MD, Ot C18. 7 MALIGNANT NEOPLASM OF SIGMOID COLON 09/11/2017 TERESA LUNDBERG MD, Ot C78. 7 SECONDARY MALIG NEOPLASM OF LIVER AND IN 09/11/2017 TERESA LUNDBERG MD Ot Z90. 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 09/11/2017 VALERIE MEDELLIN MD, Ot Z79.899 OTHER INTERMEDIATE (CURRENT) DRUG THERAPY 09/11/2017 VALERIE MEDELLIN MD, Ot Z85.038 PERSONAL HISTORY OF MALIGNANT NEOPLASM O 09/11/2017 VALERIE MEDELLIN MD Ot Z86.711 PERSONAL HISTORY OF PULMONARY EMBOLISM 09/11/2017 VALERIE MEDELLIN MD Ot Z86.718 PERSONAL HISTORY OF OTHER VENOUS THROMBO 09/12/2017 VALERIE MEDELLIN MD Ot C18.7 MALIGNANT NEOPLASM OF SIGMOID COLON 09/12/2017 VALERIE MEDELLIN MD Ot C18.7 MALIGNANT NEOPLASM OF SIGMOID COLON 09/12/2017 VALERIE MEDELLIN MD Ot C78.7 SECONDARY MALIG NEOPLASM OF LIVER AND IN 09/12/2017 VALERIE MEDELLIN MD Ot F10.21 ALCOHOL DEPENDENCE, IN REMISSION 09/12/2017 VALERIE MEDELLIN MD Ot M19.91 PRIMARY OSTEOARTHRITIS, UNSPECIFIED SITE 09/12/2017 VALERIE MEDELLIN MD Ot M51.26 OTHER INTERVERTEBRAL DISC DISPLACEMENT, 09/12/2017 VALERIE MEDELLIN MD Ot N40.0 BENIGN PROSTATIC HYPERPLASIA WITHOUT LOW 09/12/2017 VALERIE MEDELLIN MD Ot 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 09/12/2017 VALERIE MEDELLIN MD Ot Z79.899 OTHER BUFFING AND POLISHING WHEEL REPAIRER (CURRENT) DRUG THERAPY 09/12/2017 VALERIE MEDELLIN MD Ot Z85.038 PERSONAL HISTORY OF MALIGNANT NEOPLASM O 09/12/2017 VALERIE MEDELLIN MD Ot Z86.711 PERSONAL HISTORY OF PULMONARY EMBOLISM 09/12/2017 VALERIE MDEELLIN MD Ot Z86.718 PERSONAL HISTORY OF OTHER VENOUS THROMBO 10/03/2017 VALERIE MEDELLIN MD Ot C18.7 MALIGNANT NEOPLASM OF SIGMOID COLON 10/07/2017 VALERIE MEDELLIN MD Ot C78.7 SECONDARY MALIG NEOPLASM OF LIVER AND IN 10/07/2017 VALERIE MEDELLIN MD Ot F10.21 ALCOHOL DEPENDENCE, IN REMISSION 10/07/2017 VALERIE MEDELLIN MD Ot M19.91 PRIMARY OSTEOARTHRITIS, UNSPECIFIED SITE 10/07/2017 VALERIE MEDELLIN MD Ot M51.26 OTHER INTERVERTEBRAL DISC DISPLACEMENT, 10/07/2017 VALERIE MEDELLIN MD Ot N40.0 BENIGN PROSTATIC HYPERPLASIA WITHOUT LOW 10/07/2017 VALERIE MEDELLIN MD Ot Z79.01 INTERMEDIATE (CURRENT) USE OF ANTICOAGULANT 10/07/2017 VALERIE MEDELLIN MD Ot Z79.899 OTHER INTERMEDIATE (CURRENT) DRUG THERAPY 10/07/2017 VALERIE MEDELLIN MD Ot Z85.038 PERSONAL HISTORY OF MALIGNANT NEOPLASM O 10/07/2017 VALERIE MEDELLIN MD Ot Z86.711 PERSONAL HISTORY OF PULMONARY EMBOLISM 10/07/2017 VALERIE MEDELLIN MD Ot Z86.718 PERSONAL HISTORY OF OTHER VENOUS THROMBO 12/18/2017 VALERIE MEDELLIN MD Ot C78.7 SECONDARY MALIG NEOPLASM OF LIVER AND IN 12/18/2017 VALERIE MEDELLIN MD Ot F10.21 ALCOHOL DEPENDENCE, IN REMISSION 12/18/2017 VALERIE MEDELLIN MD Ot M19.91 PRIMARY OSTEOARTHRITIS, UNSPECIFIED SITE 12/18/2017 VALERIE MEDELLIN MD Ot M51.26 OTHER INTERVERTEBRAL DISC DISPLACEMENT, 12/18/2017 VALERIE MEDELLIN MD Ot N40.0 BENIGN PROSTATIC HYPERPLASIA WITHOUT LOW 12/18/2017 VALERIE MEDELLIN MD Ot Z79.01 INTERMEDIATE (CURRENT) USE OF ANTICOAGULANT 12/18/2017 VALERIE MEDELLIN MD Ot Z79.899 OTHER INTERMEDIATE (CURRENT) DRUG THERAPY 12/18/2017 VALERIE MEDELLIN MD Ot Z85.038 PERSONAL HISTORY OF MALIGNANT NEOPLASM O 12/18/2017 VALERIE MEDELLIN MD Ot Z86.711 PERSONAL HISTORY OF PULMONARY EMBOLISM 12/18/2017 VALERIE MEDELLIN MD Ot Z86.718 PERSONAL HISTORY OF OTHER VENOUS THROMBO 03/18/2018 LEANDRA BABCOCK MD Ot C18.7 MALIGNANT NEOPLASM OF SIGMOID COLON 03/18/2018 LEANDRA BABCOCK MD Ot C78.7 SECONDARY MALIG NEOPLASM OF LIVER AND IN 03/18/2018 LEANDRA BABCOCK MD Ot C18.7 MALIGNANT NEOPLASM OF SIGMOID COLON 03/18/2018 LEANDRA BABCOCK MD Ot C78.7 SECONDARY MALIG NEOPLASM OF LIVER AND IN 03/18/2018 ANDRE LAZARO MD Ot Z01.818 ENCOUNTER FOR OTHER PREPROCEDURAL EXAMIN 03/18/2018 ANDRE LAZARO MD Ot Z85.038 PERSONAL HISTORY OF MALIGNANT NEOPLASM O 03/18/2018 LEANDRA BABCOCK MD Ot C18.9 MALIGNANT NEOPLASM OF COLON, UNSPECIFIED 03/18/2018 LEANDRA BABCOCK MD, Ot C78.7 SECONDARY MALIG NEOPLASM OF LIVER AND IN 03/18/2018 LEANDRA BABCOCK MD Ot C18.9 MALIGNANT NEOPLASM OF COLON, UNSPECIFIED 03/18/2018 LEANDRA BABCOCK MD Ot C78.7 SECONDARY MALIG NEOPLASM OF LIVER AND IN 03/18/2018 TERESA LUNDBERG MD Ot C18. 7 MALIGNANT NEOPLASM OF SIGMOID COLON 03/18/2018 TERESA LUNDBERG MD Ot C78. 7 SECONDARY MALIG NEOPLASM OF LIVER AND IN 03/18/2018 TERESA LUNDBERG MD Ot Z90. 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 05/01/2018 VALERIE MEDELLIN MD Ot Z79.899 OTHER INTERMEDIATE (CURRENT) DRUG THERAPY 05/01/2018 VALERIE MEDELLIN MD Ot Z85.038 PERSONAL HISTORY OF MALIGNANT NEOPLASM O 05/01/2018 VALERIE MEDELLIN MD Ot Z86.711 PERSONAL HISTORY OF PULMONARY EMBOLISM 05/01/2018 VALERIE MEDELLIN MD Ot Z86.718 PERSONAL HISTORY OF OTHER VENOUS THROMBO 06/16/2018 VALERIE MEDELLIN MD, Ot C78.7 SECONDARY MALIG NEOPLASM OF LIVER AND IN 06/16/2018 VALERIE MEDELLIN MD Ot F10.21 ALCOHOL DEPENDENCE, IN REMISSION 06/16/2018 VALERIE MEDELLIN MD Ot N40.0 BENIGN PROSTATIC HYPERPLASIA WITHOUT LOW 06/16/2018 VALERIE MEDELLIN MD Ot 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 06/16/2018 VALERIE MEDELLIN MD Ot Z79.899 OTHER BUFFING AND POLISHING WHEEL REPAIRER (CURRENT) DRUG THERAPY 06/16/2018 VALERIE MEDELLIN MD Ot Z85.038 PERSONAL HISTORY OF MALIGNANT NEOPLASM O 06/16/2018 VALERIE MEDELLIN MD Ot Z86.711 PERSONAL HISTORY OF PULMONARY EMBOLISM 06/16/2018 VALERIE MEDELLIN MD Ot Z86.718 PERSONAL HISTORY OF OTHER VENOUS THROMBO 06/18/2018 VALERIE MEDELLIN MD Ot C78.7 SECONDARY MALIG NEOPLASM OF LIVER AND IN 06/18/2018 VALERIE MEDELLIN MD Ot F10.21 ALCOHOL DEPENDENCE, IN REMISSION 06/18/2018 VALERIE MEDELLIN MD Ot N40.0 BENIGN PROSTATIC HYPERPLASIA WITHOUT LOW 06/18/2018 VALERIE MEDELLIN MD Ot Z79.01 INTERMEDIATE (CURRENT) USE OF ANTICOAGULANT 06/18/2018 VALERIE MEDLELIN MD Ot Z79.899 OTHER BUFFING AND POLISHING WHEEL REPAIRER (CURRENT) DRUG THERAPY 06/18/2018 VALERIE MEDELLIN MD Ot Z85.038 PERSONAL HISTORY OF MALIGNANT NEOPLASM O 06/18/2018 VALERIE MEDELLIN MD Ot Z86.711 PERSONAL HISTORY OF PULMONARY EMBOLISM 06/18/2018 VALERIE MEDELLIN MD Ot Z86.718 PERSONAL HISTORY OF OTHER VENOUS THROMBO 09/11/2018 VALERIE MEDELLIN MD Ot C18.9 MALIGNANT NEOPLASM OF COLON, UNSPECIFIED 09/11/2018 VALERIE MEDELLIN MD Ot I26.99 OTHER PULMONARY EMBOLISM WITHOUT ACUTE C 09/11/2018 VALERIE MEDELLIN MD Ot Z90.49 ACQUIRED ABSENCE OF OTHER SPECIFIED PART 09/11/2018 VALERIE MEDELLIN MD Ot Z90.89 ACQUIRED ABSENCE OF OTHER ORGANS 09/11/2018 VALERIE MEDELLIN MD Ot C78.7 SECONDARY MALIG NEOPLASM OF LIVER AND IN 09/11/2018 VALERIE MEDELLIN MD Ot F10.21 ALCOHOL DEPENDENCE, IN REMISSION 09/11/2018 VALERIE MEDELLIN MD Ot N40.0 BENIGN PROSTATIC HYPERPLASIA WITHOUT LOW 09/11/2018 VALERIE MEDELLIN MD Ot Z79.01 INTERMEDIATE (CURRENT) USE OF ANTICOAGULANT 09/11/2018 VALERIE MEDELLIN MD Ot Z79.899 OTHER INTERMEDIATE (CURRENT) DRUG THERAPY 09/11/2018 VALERIE MEDELLIN MD Ot Z85.038 PERSONAL HISTORY OF MALIGNANT NEOPLASM O 09/11/2018 VALERIE MEDELLIN MD Ot Z86.711 PERSONAL HISTORY OF PULMONARY EMBOLISM 09/11/2018 VALERIE MEDELLIN MD Ot Z86.718 PERSONAL HISTORY OF OTHER VENOUS THROMBO 10/01/2018 VALERIE MEDELLIN MD Ot C18.9 MALIGNANT NEOPLASM OF COLON, UNSPECIFIED 10/01/2018 VALERIE MEDELLIN MD Ot I26.99 OTHER PULMONARY EMBOLISM WITHOUT ACUTE C 10/01/2018 VALERIE MEDELLIN MD Ot Z90.49 ACQUIRED ABSENCE OF OTHER SPECIFIED PART 10/01/2018 VALERIE MEDELLIN MD Ot Z90.89 ACQUIRED ABSENCE OF OTHER ORGANS 12/08/2018 VALERIE MEDELLIN MD Ot C78.7 SECONDARY MALIG NEOPLASM OF LIVER AND IN 12/08/2018 VALERIE MEDELLIN MD Ot F10.21 ALCOHOL DEPENDENCE, IN REMISSION 12/08/2018 VALERIE MEDELLIN MD Ot N40.0 BENIGN PROSTATIC HYPERPLASIA WITHOUT LOW 12/08/2018 VALERIE MEDELLIN MD Ot Z79.01 INTERMEDIATE (CURRENT) USE OF ANTICOAGULANT 12/08/2018 VALERIE MEDELLIN MD Ot Z79.899 OTHER INTERMEDIATE (CURRENT) DRUG THERAPY 12/08/2018 VALERIE MEDELLIN MD Ot Z85.038 PERSONAL HISTORY OF MALIGNANT NEOPLASM O 12/08/2018 VALERIE MEDELLIN MD Ot Z86.711 PERSONAL HISTORY OF PULMONARY EMBOLISM 12/08/2018 VALERIE MEDELLIN MD Ot Z86.718 PERSONAL HISTORY OF OTHER VENOUS THROMBO 12/09/2018 VALERIE MEDELLIN MD Ot C78.7 SECONDARY MALIG NEOPLASM OF LIVER AND IN 12/09/2018 VALERIE MEDELLIN MD Ot F10.21 ALCOHOL DEPENDENCE, IN REMISSION 12/09/2018 VALERIE MEDELLIN MD Ot N40.0 BENIGN PROSTATIC HYPERPLASIA WITHOUT LOW 12/09/2018 VALERIE MEDELLIN MD Ot Z79.01 INTERMEDIATE (CURRENT) USE OF ANTICOAGULANT 12/09/2018 VALERIE MEDELLIN MD Ot Z79.899 OTHER BUFFING AND POLISHING WHEEL REPAIRER (CURRENT) DRUG THERAPY 12/09/2018 VALERIE MEDELLIN MD Ot Z85.038 PERSONAL HISTORY OF MALIGNANT NEOPLASM O 12/09/2018 VALERIE MEDELLIN MD Ot Z86.711 PERSONAL HISTORY OF PULMONARY EMBOLISM 12/09/2018 VALERIE MEDELLIN MD Ot Z86.718 PERSONAL HISTORY OF OTHER VENOUS THROMBO 09/16/2019 BHAKTI WEBER MD Ot C78.7 SECONDARY MALIG NEOPLASM OF LIVER AND IN 09/16/2019 BHAKTI WEBER MD Ot F10.2 1 ALCOHOL DEPENDENCE, IN REMISSION 09/16/2019 BHAKTI WEBER MD Ot N40.0 BENIGN PROSTATIC HYPERPLASIA WITHOUT LOW 09/16/2019 BHAKTI WEBER MD Ot Z79.0 1 BUFFING AND POLISHING WHEEL REPAIRER (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) USE OF ANTICOAGULANT 09/16/2019 BHAKTI WEBER MD Ot Z79.8 99 OTHER INTERMEDIATE (CURRENT) DRUG THERAPY 09/16/2019 BHAKTI WEBER MD Ot Z85.0 38 PERSONAL HISTORY OF MALIGNANT NEOPLASM O 09/16/2019 BHAKTI WEBER MD Ot Z86.7 11 PERSONAL HISTORY OF PULMONARY EMBOLISM 09/16/2019 BHAKTI WEBER MD Ot Z86.7 18 PERSONAL HISTORY OF OTHER VENOUS THROMBO 09/20/2019 BHAKTI WEBER MD Ot F10.2 1 ALCOHOL DEPENDENCE, IN REMISSION 09/20/2019 TAHA MD, BHAKTI M Ot I26.9 9 OTHER PULMONARY EMBOLISM WITHOUT ACUTE C 09/20/2019 BHAKTI WEBER MD M Ot M47.9 SPONDYLOSIS, UNSPECIFIED 09/20/2019 BHAKTI WEBER MD M Ot N40.0 BENIGN PROSTATIC HYPERPLASIA WITHOUT LOW 09/20/2019 BHAKTI WEBER MD M Ot Z72.0 TOBACCO USE 09/20/2019 BHAKTI WEBER MD M Ot Z85.0 38 PERSONAL HISTORY OF MALIGNANT NEOPLASM O 09/20/2019 BHAKTI WEBER MD M Ot Z85.0 5 PERSONAL HISTORY OF MALIGNANT NEOPLASM O 09/20/2019 BHAKTI WEBER MD M Ot Z86.7 18 PERSONAL HISTORY OF OTHER VENOUS THROMBO 09/20/2019 BHAKTI WEBER MD M Ot F10.2 1 ALCOHOL DEPENDENCE, IN REMISSION 09/20/2019 BHAKTI WEBER MD Ot I26.9 9 OTHER PULMONARY EMBOLISM WITHOUT ACUTE C 09/20/2019 BHAKTI WEBER MD Ot M47.9 SPONDYLOSIS, UNSPECIFIED 09/20/2019 BHAKTI WEBER MD M Ot N40.0 BENIGN PROSTATIC HYPERPLASIA WITHOUT LOW 09/20/2019 BHAKTI WEBER MD M Ot Z72.0 TOBACCO USE 09/20/2019 BHAKTI WEBER MD M Ot Z85.0 38 PERSONAL HISTORY OF MALIGNANT NEOPLASM O 09/20/2019 BHAKTI WEBER MD M Ot Z85.0 5 PERSONAL HISTORY OF MALIGNANT NEOPLASM O 09/20/2019 BHAKTI WEBER MD M Ot Z86.7 18 PERSONAL HISTORY OF OTHER VENOUS THROMBO 10/04/2019 BHAKTI WEBER MD Ot F10.2 1 ALCOHOL DEPENDENCE, IN REMISSION 10/04/2019 BHAKTI WEBER MD M Ot I26.9 9 OTHER PULMONARY EMBOLISM WITHOUT ACUTE C 10/04/2019 BHAKTI WEBER MD M Ot M47.9 SPONDYLOSIS, UNSPECIFIED 10/04/2019 BHAKTI WEBER MD M Ot N40.0 BENIGN PROSTATIC HYPERPLASIA WITHOUT LOW 10/04/2019 BHAKTI WEBER MD M Ot Z72.0 TOBACCO USE 10/04/2019 BHAKTI WEBER MD M Ot Z85.0 38 PERSONAL HISTORY OF MALIGNANT NEOPLASM O 10/04/2019 BHAKTI WEBER MD M Ot Z85.0 5 PERSONAL HISTORY OF MALIGNANT NEOPLASM O 10/04/2019 BHAKTI WEBER MD M Ot Z86.7 18 PERSONAL HISTORY OF OTHER VENOUS THROMBO Procedures Code Description Performed By Per formed On 17.36 LAPA ROSCOPIC SIGMOIDECTOMY 07/12/2011 86.07 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 01/04/2013 Results Test Result Range Methicillin resistant Staphylococcus aur eus (MRSA) screening culture - 10/11/15 10:00 Methicillin resistant Staphylococcus aureus (MRSA) scr eening culture NEG NRG PT panel in platelet poor plasma by coag ulation assay - 10/11/15 10:15 Prothrombin time (PT) in platelet poor plasma by coagu lation assay 23.6 s 12.2-14.7 INR in platelet poor plasma or blood by coagulation as say 2.1 0.8-1.4 Complete blood count (CBC) with automate d white blood cell (WBC) differential - 03/06/17 09:19 Blood leukocytes automated count (number/volume) 5.1 10*3/uL 4.3-11.0 Blood erythrocytes automated count (number/volume) 4.89 10*6/uL 4.35-5.85 Venous blood hemoglobin measurement (mass/volume) 14.8 g/dL 13.3-17.7 Blood hematocrit (volume fraction) 44 % 40-54 Automated erythrocyte mean corpuscular volume 90 [ foz_us] 80-99 Automated erythrocyte mean corpuscular h emoglobin (mass per erythrocyte) 30 pg 25-34 Automated erythrocyte mean corpuscular h emoglobin concentration measurement (mass/volume) 34 g/dL 32-36 Automated erythrocyte distribution width ratio 13. 5 % 10.0- 14.5 Automated blood platelet count (count/volume) 198 10*3/uL 130-400 Automated blood platelet mean volume measurement 11.3 [foz_us] 7.4-10.4 Automated blood neutrophils/100 leukocytes 68 % 42-75 Automated blood lymphocytes/100 leukocytes 20 % 12-44 Blood monocytes/100 leukocytes 7 % 0-12 Automated blood eosinophils/100 leukocytes 5 % 0-10 Automated blood basophils/100 leukocytes 0 % 0-10 Blood neutrophils automated count (number/volume) 3.5 10*3 1.8-7.8 Blood lymphocytes automated count (number/volume) 1.0 10*3 1.0-4.0 Blood monocytes automated count (number/volume) 0. 4 10*3 0.0-1.0 Automated eosinophil count 0.2 10*3/uL 0 .0-0.3 Automated blood basophil count (count/volume) 0.0 10*3/uL 0.0-0.1 Comprehensive metabolic panel - 03/06/17 09:19 Serum or plasma sodium measurement (moles/volume) 142 mmol/L 135-145 Serum or plasma potassium measurement (moles/volume) 4.7 mmol/L 3.6-5.0 Serum or plasma chloride measurement (moles/volume) 104 mmol/L 98-107 Carbon dioxide 29 mmol/L 21-32 Serum or plasma anion gap determination (moles/volume) 9 mmol/L 5-14 Serum or plasma urea nitrogen measurement (mass/volume ) 11 mg/dL 7-18 Serum or plasma creatinine measurement (mass/volume) 0.97 mg/dL 0.60-1.30 Serum or plasma urea nitrogen/creatinine mass ratio 11 NRG Serum or plasma creatinine measurement w ith calculation of estimated glomerular filtration rate > NRG Serum or plasma glucose measurement (mass/volume) 109 mg/dL 70-105 Serum or plasma calcium measurement (mass/volume) 9.7 mg/dL 8.5-10.1 Serum or plasma total bilirubin measurement (mass/volu me) 0.8 mg/dL 0.1-1.0 Serum or plasma alkaline phosphatase edy surement (enzymatic activity/volume) 59 U/L 40-136 Serum or plasma aspartate aminotransfera se measurement (enzymatic activity/volume) 16 U/L 5-34 Serum or plasma alanine aminotransferase measurement (enzymatic activity/volume) 14 U/L 0-55 Serum or plasma protein measurement (mass/volume) 7.2 g/dL 6.4-8.2 Serum or plasma albumin measurement (mass/volume) 4.5 g/dL 3.2-4.5 Serum ragweed IgE antibody assay - 03/06 09:19 Serum ragweed IgE antibody assay 0.6 % 0.0-5.0 Encounters ACCT No. Visit Date/Time Discharge Status Pt. Type Provider Facility Loc./Unit Complaint [id number] 10/04/2019 05:30:00 020 10:14:00 DIS Outpatient NICHOLAS CID MD Via [facility] PREOP SCREENING, HISTORY OF C OLON CANCER [id number] 09/17/2019 08:11:00 020 23:59:59 CLS Outpatient BHAKTI WEBER MD [facility] ONC [id number] 09/16/2018 07:52:00 019 00:01:00 DIS Outpatient VALERIE MEDELLIN MD, V [facility] ONC [id number] 09/09/2018 08:53:00 019 23:59:59 CLS Outpatient VALERIE MEDELLIN MD, V [facility] RAD COLON CANCER,BILATERAL PULMONARY EMBOLISM [id number] 03/18/2018 08:04:00 019 00:01:00 DIS Outpatient VALERIE MEDELLIN MD, V [facility] ONC [id number] 09/17/2017 09:16:00 018 00:01:00 DIS Outpatient VALERIE MEDELLIN MD, V [facility] ONC [id number] 09/11/2017 09:03:00 018 23:59:59 CLS Outpatient VALERIE MEDELLIN MD, V [facility] RAD CANCER OF SIGMOID COLON [id number] 06/11/2017 08:50:00 018 00:01:00 DIS Outpatient VALERIE MEDELLIN MD, V [facility] ONC [id number] 12/10/2016 08:53:00 018 00:01:00 DIS Outpatient TERESA LUNDBERG MD [facility] ONC [id number] 03/06/2017 09:06:00 017 23:59:59 CLS Outpatient TERESA LUNDBERG MD [facility] RAD SECONDARY LIVER CA [id number] 08/15/2016 08:35:00 017 00:01:00 DIS Outpatient LEANDRA BABCOCK MD, V [facility] ONC [id number] 08/15/2016 07:53:00 017 23:59:59 CLS Outpatient LEANDRA BABCOCK MD, V [facility] RAD COLON CA [id number] 06/18/2016 16:26:00 00:01:00 DIS Outpatient YOKO JIMENEZ, LEANDRA palacio [facility] ONC [id number] 08/01/2016 08:51:00 23:59:59 CLS Outpatient YOKO JIMENEZ, LEANDRA palacio [facility] RAD CANCER OF COLON [id number] 03/13/2016 08:42:00 00:01:00 DIS Outpatient YOKO JIMENEZ, LEANDRA palacio [facility] ONC [id number] 01/16/2016 09:55:00 23:59:59 CLS Outpatient YOKO JIMENEZ, LEANDRA palacio [facility] RAD COLON CA [id number] 01/08/2016 07:20:00 09:30:00 DIS Outpatient ANDRE LAZARO MD Via [facility] HISTORY COLON CANCER [id number] 01/04/2016 05:37:00 12:41:00 DIS Outpatient ANDRE LAZARO MD Via [facility] PREOP HISTORY COLON CANCER [id number] 11/22/2015 13:20:00 13:29:00 DIS Outpatient YOKO JIMENEZ, LEANDRA palacio [facility] ONC [id number] 12/15/2015 08:45:00 23:59:59 CLS Outpatient ANDRE LAZARO MD Via [facility] PREOP HISTORY COLON CANCER [id number] 10/11/2015 09:49:00 12:40:00 DIS [facility] [id number] 10/06/2015 05:37:00 10:25:00 DIS Outpatient ANDRE LAZARO MD Via [facility] PREOP COLON CANCER [id number] 09/07/2015 08:53:00 016 00:01:00 DIS Outpatient LEANDRA BABCOCK MD [facility] ONC [id number] 07/11/2015 09:06:00 23:59:59 CLS Outpatient YOKO JIMENEZ, LEANDRA palacio [facility] RAD CANCER SIGMOID COLON,SE CONDARY LIVER CANCER [id number] 06/14/2015 10:35:00 016 00:01:00 DIS Outpatient YOKO JIMENEZ, LEANDRA palacio [facility] ONC [id number] 02/07/2015 09:49:00 00:01:00 DIS Outpatient YOKO JIMENEZ, LEANDRA palacio [facility] ONC [id number] 01/03/2015 09:30:00 23:59:59 CLS Outpatient YOKO JIMENEZ, LEANDRA palacio [facility] RAD RECTAL CA [id number] 11/15/2014 09:50:00 00:01:00 DIS Outpatient YOKO JIMENEZ, LEANDRA palacio [facility] ONC [id number] 07/13/2014 10:40:00 00:01:00 DIS Outpatient YOKO JIMENEZ, LEANDRA [place] [facility] ONC [id number] 05/31/2014 08:16:00 015 23:59:59 CLS Outpatient YOKO JIMENEZ, LEANDRA palacio [facility] RAD COLON CA [id number] 05/24/2014 08:52:00 015 00:01:00 DIS Outpatient LEANDRA BABCOCK MD [facility] ONC [id number] 02/16/2014 13:36:00 014 00:01:00 DIS Outpatient LEANDRA BABCOCK MD [facility] ONC [id number] 11/16/2013 08:07:00 014 23:59:59 CLS Outpatient LEANDRA BABCOCK MD [facility] RAD COLON CA,LIVER CA [id number] 10/19/2013 10:17:00 014 00:01:00 DIS Outpatient LEANDRA BABCOCK MD [facility] ONC [id number] 08/19/2013 09:29:00 014 23:59:59 CLS Outpatient LEANDRA BABCOCK MD [facility] RAD BONE AND JOINT PAIN [id number] 08/17/2013 09:47:00 014 23:59:59 CLS Outpatient YOKO JIMENEZ, LEANDRA palacio [facility] RAD BONE AND JOINT PAIN [id number] 07/13/2013 08:20:00 014 00:01:00 DIS Outpatient YOKO JIMENEZ, LEANDRA palacio [facility] ONC [id number] 06/24/2013 13:46:00 23:59:59 CLS Outpatient YESSICA JIMENEZ, MALVIN Giron [facility] RAD PAIN [id number] 04/02/2013 12:03:00 014 00:01:00 DIS Outpatient YOKO JIMENEZ, LEANDRA palacio [facility] ONC [id number] 03/02/2013 08:44:00 23:59:59 CLS Outpatient JUSTIN STAUFFERP Via [facility] ONC OV [id number] 01/14/2013 09:52:00 15:15:00 DIS Outpatient ANDRE LAZARO MD Via [facility] SDC HEMATOMA RIGHT CHEST W ALL [id number] 01/13/2013 13:26:00 23:59:59 CLS Outpatient ANDRE LAZARO MD Via [facility] PREOP HEMATOMA RIGHT CHEST W ALL [id number] 12/27/2012 23:38:00 16:46:00 DIS Inpatient YOKO JIMENEZ, LEANDRA Aparicio a [facility] 4TH PNEUMONIA,PULMONARY EMBOLISM,ATYPICAL CHEST PAIN,L [id number] 10/06/2019 10:15:00 P NICHOLAS Tejada MD Via [facility] ENDO SCREENING, HISTORY OF COLON CANCER [id number] 06/08/2012 06:59:00 Document Registration [id number] 06/03/2012 08:08:00 Document Registration [id number] 03/25/2012 07:24:00 Document Registration [id number] 03/23/2012 09:52:00 Document Registration [id number] 03/17/2012 11:12:00 Document Registration [id number] 01/21/2012 09:52:00 Document Registration [id number] 10/22/2011 11:28:00 Document Registration [id number] 08/26/2011 11:01:00 Document Registration [id number] 08/13/2011 10:06:00 Document Registration [id number] 08/08/2011 05:54:00 Document Registration [id number] 08/01/2011 10:45:00 Document Registration [id number] 07/30/2011 13:29:00 Document Registration [id number] 07/12/2011 05:38:00 Document Registration [id number] 07/08/2011 13:12:00 Document Registration [id number] 07/04/2011 12:20:00 Document Registration
--- NOTE | 2019-10-06 10:32 | Progress Note-Pre Operative ---
Pre-Operative Progress Note H&P Reviewed The H&P was reviewed, patient examined and no changes noted. Date Seen by Provider: Oct 06, 2019 Time Seen by Provider: 10:00 Date H&P Reviewed: Oct 06, 2019 Time H&P Reviewed: 10:00 Pre-Operative Diagnosis: personal hx colon cancer NICHOLAS CID MD Oct 06, 2019 10:32
--- NOTE | 2019-10-06 10:32 | Conscious Sedation/ASA ---
Conscious Sedation Pre-Proced Time 10:00 ASA Score 2 For ASA 3 and 4: Consider anesthesia and medical clearance. Also, for patients with a history of failed moderate sedation consider anesthesia. Airway Lungs Heart ASA score ASA 1: a normal healthy patient ASA 2: a patient with a mild systemic disease (mid diabetes, controlled hypertension, obesity ASA 3: a patient with a severe systemic disease that limits activity (angina, COPD, prior Myocardial infarction) ASA 4: a patient with an incapacitating disease that is a constant threat to life (CHF, renal failure) ASA 5: a moribund patient not expected to survive 24 hrs. (ruptured aneurysm) ASA 6: a declared brain- patient whose organs are being harvested. For emergent operations, add the letter E after the classification Mallampati Classification Grade 2 Sedation Plan Analgesia, Amnesia, Plan communicated to team members, Discussed options with patient/fam, Discussed risks with patient/fam The patient is an appropriate candidate to undergo the planned procedure, sedation, and anesthesia. The patient immediately re-assessed prior to indication. NICHOLAS CID MD Oct 06, 2019 10:32
--- NOTE | 2019-10-06 10:34 | Discharge Inst-Surgical ---
D/C Lap Instructions-PALAK Follow Up Activity as tolerated High Fiber Diet 25g or more per day Avoid Alcohol, Caffeine, Spicy Standing Pine and Acid foods. Drink 64 fluid oz or more of fluids per day. Symptoms to Report: Fever over 101 degree F, Nausea/Vomiting If any problems/questions: Contact your physician or go to Emergency Room NICHOLAS CID MD Oct 06, 2019 10:34
[2019-10-06] MEDS ORDERED: LIDOCAINE JELLY 2% 6 ML SYRINGE ONE (10:43)
[2019-10-06] MEDS ORDERED: MIDAZOLAM 5 MG/5 ML (VERSED) VIAL ONE ×2 (10:44)
[2019-10-06] MEDS ORDERED: fentaNYL INJECTION 100 MCG/2 ML AMP ONE ×2 (10:44)
[2019-10-06] MEDS ORDERED: ACETAMINOPHEN 325 MG TABLET PO PRN (10:45)
[2019-10-06] MEDS ORDERED: HYDROcodone/APAP 5 MG/325 MG (LORTAB) TAB PO PRN (10:45)
[2019-10-06] MEDS ORDERED: morphine INJ 10 MG/ML 1ML (SYR OR VIAL) IVP PRN ×2 (10:45)
[2019-10-06] MEDS ORDERED: ONDANSETRON 4 MG/2 ML (SDV) Z0FRAN IVP PRN (10:45)
[2019-10-06] MEDS: MIDAZOLAM 5 MG/5 ML (VERSED) VIAL IV PRN ×2 (12:10→12:13)
--- NOTE | 2019-10-06 12:41 | Progress Note-Post Operative ---
Post-Operative Progess Note Surgeon (s)/Catering Sous Chef (s) Surgeon NICHOLAS CID MD Catering Sous Chef: none Pre-Operative Diagnosis personal hx colon cancer Post-Operative Diagnosis normal colon and rectum Procedure & Operative Findings Date of Procedure 10/06/19 Procedure Performed/Findings colonoscopy Anesthesia Type cs Estimated Blood Loss Estimated blood loss (mL): minimal Specimens/Packing Specimens Removed none NICHOLAS CID MD Oct 06, 2019 12:41
--- NOTE | 2019-10-06 17:23 | OPERATIVE REPORT ---
DATE OF SERVICE: 10/06/2019 ATTENDING PRIMARY CARE PHYSICIAN: Dr. Mike Bustillo, [facility]. PREOPERATIVE DIAGNOSIS: Personal history of colon cancer. POSTOPERATIVE DIAGNOSIS: Normal colon and rectum. Normal colorectal anastomosis. PROCEDURE PERFORMED: Colonoscopy. SURGEON: Nicholas Cid MD ANESTHESIA: Conscious sedation. ESTIMATED BLOOD LOSS: Minimal. FINDINGS: Same as postoperative diagnosis. DISPOSITION: The patient tolerated the procedure well. INDICATIONS FOR PROCEDURE: The patient is a 64-year-old male in need of a followup screening colonoscopy. 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 He did undergo chemotherapy as well as resection of the sigmoid colon and metastasis, which encompassed the gallbladder and a portion of the liver in 2013. 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 His last colonoscopy was in 2015. He is in need of a followup colonoscopy. DESCRIPTION OF PROCEDURE: The patient was brought to the endoscopy suite and laid in the left lateral decubitus position. After adequate IV pain and sedative medications and conscious sedation anesthesia, a digital rectal examination was performed. No significant hemorrhoids were identified. Normal sphincter tone was felt and there were no palpable masses. Prostate gland was palpable and appeared normal. The endoscope was then intubated and anus and rectum gently insufflated. The endoscope was then advanced through the valves of Carter of the rectum with no polyps or any neoplasms identified. At the rectosigmoid junction, the area of anastomosis was intact with no strictures or recurrent tumors. The endoscope was then advanced to the remainder of the descending, transverse and ascending colon to the cecum. These segments were normal. Endoscope was then slowly withdrawn while taking a second look and suctioning of residual air with no additional findings. The patient tolerated the procedure well. We will recommend a high fiber diet with at least 30 grams of fiber daily as well as significant amounts of water to promote soft stools on a daily basis. If he is asymptomatic, he does not need colonoscopy for another 5 years. Job ID: [id number] DocumentID: [id number] Dictated Date: 10/06/2019 12:35:30 Bell Spinner Date: 10/06/2019 17:22:43 Dictated By: NICHOLAS CID MD [facility]
== END 2019-10-06 13:35 | disposition home or self-care (01) ==
LOC: ENDO 09:34
PROVIDERS: ATTEND Surgery
DX: Z12.11 Encounter for screening for malignant neoplasm of colon (principal); Z85.038 Personal history of other malignant neoplasm of large intestine; Z86.718 Personal history of other venous thrombosis and embolism; Z86.711 Personal history of pulmonary embolism; Z92.21 Personal history of antineoplastic chemotherapy; Z79.01 Long term (current) use of anticoagulants; F17.220 Nicotine dependence, chewing tobacco, uncomplicated